=== PATIENT | female | born 1965 | race Two or more races ===

== ENCOUNTER 2021-03-20 17:49 | Emergency (ER) | payer SELFPAY ==
[~2021-03-20] VITALS: Ht 147.3 cm; Wt 63.5 kg
[2021-03-20 17:59] VITALS: BP 126/87
== END 2021-03-20 19:11 | disposition left against medical advice (07) ==
LOC: ER 18:06
DX: R11.2 Nausea with vomiting, unspecified (principal); Z53.21 Procedure and treatment not carried out due to patient leaving prior to being seen by health care provider

== ENCOUNTER 2024-06-19 18:11 | Inpatient (IN) | payer MEDICAID ==
[~2024-06-19] VITALS: Ht 147.3 cm; Wt 65.3 kg
[2024-06-19 18:58] LABS: Urine Bacteria None Seen /hpf (None Seen)
--- NOTE | 2024-06-19 19:01 | ED.PDOC ---
GI ASSESSMENT HPI Comments 58 y/o F, with no prior medical history presents to the ED for CC of abdominal pain. Patient states, that she has been experiencing epigastric abdominal pain that radiates to her back x3 weeks. Patient denies hematuria, dysuria, nausea, or vomiting. No other symptoms or modifying factors present at this time. 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 Family History Family History: Unknown Social History Smoker: Non-Smoker Alcohol: Denies ETOH Use Drugs: Denies Drug Use Lives In: Home Constitutional: denies: chills, diaphoresis, fatigue, fever, malaise, sweats, weakness, others EENTM: denies: blurred vision, double vision, ear bleeding, ear discharge, ear drainage, ear pain, ear ringing, eye pain, eye redness, hearing loss, mouth pain, mouth swelling, nasal discharge, nose bleeding, nose congestion, nose pain, photophobia, tearing, throat pain, throat swelling, voice changes, others Respiratory: denies: cough, hemoptysis, orthopnea, SOB at rest, shortness of breath, SOB with excertion, stridor, wheezing, others Cardiovascular: denies: chest pain, dizzy spells, diaphoresis, Dyspnea on exertion, edema, irregular heart beat, left arm pain, lightheadedness, palpitations, PND, syncope, others Gastrointestinal: reports: abdominal pain; denies: abdomen distended, blood streaked bowels, constipated, diarrhea, dysphagia, difficulty swallowing, hematemesis, melena, nausea, poor appetite, poor fluid intake, rectal bleeding, rectal pain, vomiting, others Genitourinary: denies: abnormal vagina bleeding, burning, dyspareunia, dysuria, flank pain, frequency, hematuria, incontinence, pain, , vagina discharge, urgency, others Neurological: denies: dizziness, fainting, headache, left sided numbness, left sided weakness, numbness, paresthesia, pre-existing deficit, right sided numbness, right sided weakness, seizure, speech problems, tingling, tremors, weakness, others Musculoskeletal: reports: back pain; denies: gout, joint pain, joint swelling, muscle pain, muscle stiffness, neck pain, others Integumetry: denies: bruises, change in color, change in hair/nails, dryness, laceration, lesions, lumps, rash, wounds, others Allergic/Immunocompromised: denies: Difficulty Healing, Frequent Infections, Hives, Itching, others Hematologic/Lymphatic: denies: anemia, blood clots, easy bleeding, easy bruising, swollen glands, others Endocrine: denies: excessive hunger, excessive sweating, excessive thirst, excessive urination, flushing, intolerance to cold, intolerance to heat, unexplained weight gain, unexplained weight loss, others Psychiatric: denies: anxiety, bipolar disorder, depression, hopeless, panic disorder, schizophrenia, sleepless, suicidal, others All Other Systems: Reviewed and Negative Physical Exam General Appearance: Moderate Distress HEENT: Normal ENT Inspection, Pharynx Normal, TMs Normal Neck: Full Range of Motion, Non-Tender, Normal, Normal Inspection Respiratory: Chest Non-Tender, Lungs Clear, No Accessory Muscle Use, No Respiratory Distress, Normal Breath Sounds Cardiovascular: No Edema, No JVD, No Murmur, No Gallop, Normal Peripheral Pulses, Regular Rate/Rhythm Breast Exam: Deferred Gastrointestinal: Epigastric, No Organomegaly, No Pulsatile Mass, Normal Bowel Sounds, Soft, Tenderness Genitalia: Deferred Pelvic: Deferred Rectal: Deferred Extremities: No calf tenderness, Normal capillary refill, No pedal edema Musculoskeletal : Apperance: Normal Neurologic: Alert, relays draftsperson II-XII nml as Tested, No Motor Deficits, Normal Affect, Normal Mood, No Sensory Deficits Cerebellar Function: Normal Reflexes: Normal Skin: Dry, Normal Color, Warm Lymphatic: No Adenopathy Was a procedure done? Was a procedure done?: No GI differential Dx Differential Diagnosis: Gastritis/PUD, Gastroenteritis, Electrolyte Imbalance, Food Poisoning, Bacterial, Viral X-Ray, Labs, Meds, VS Vital Signs Date Time Temp Pulse Resp B/P (MAP) Pulse Ox O2 Delivery O2 Flow Rate FiO2 06/19/24 18:21 99.7 100 17 161/88 (112) 96 99.7 Lab Test 06/19/24 19:23 06/19/24 18:11 Range/Units White Blood Count 9.9 4.4-10.8 10^3/uL Red Blood Count 5.09 4.0-5.20 10^6/uL Hemoglobin 15.3 12.2-16.2 g/dL Hematocrit 43.1 36.0-46.0 % Mean Corpuscular Volume 84.8 80.0-100.0 fL Mean Corpuscular Hemoglobin 30.1 28.0-32.0 pg Mean Corpuscular Hemoglobin Concent 35.5 32.0-36.0 g/dL Red Cell Distribution Width 12.7 11.8-14.3 % Platelet Count 327 140-450 10^3/uL Mean Platelet Volume 8.8 6.9-10.8 fL Neutrophils (%) (Auto) 53.7 37.0-80.0 % Lymphocytes (%) (Auto) 28.6 10.0-50.0 % Monocytes (%) (Auto) 7.5 0.0-12.0 % Eosinophils (%) (Auto) 9.3 H 0.0-7.0 % Basophils (%) (Auto) 0.9 0.0-2.0 % Neutrophils # (Auto) 5.3 1.6-8.6 10 ^3/uL Lymphocytes # (Auto) 2.8 0.4-5.4 10 ^3/uL Monocytes # (Auto) 0.7 0-1.3 10 ^3/uL Eosinophils # (Auto) 0.9 H 0-0.8 10 ^3/uL Basophils # (Auto) 0.1 0-0.2 10 ^3/uL Nucleated Red Blood Cells 0.0 % Sodium Level Pending Potassium Level Pending Chloride Level Pending Carbon Dioxide Level Pending Anion Gap Pending Blood Urea Nitrogen Pending Creatinine Pending Glomerular Filtration Rate Calc Pending BUN/Creatinine Ratio Pending Serum Glucose Pending Calcium Level Pending Total Bilirubin Pending Aspartate Amino Transferase (AST) Pending Alanine Aminotransferase (ALT) Pending Alkaline Phosphatase Pending Total Protein Pending Albumin Pending Lipase Pending Urine Color Yellow Yellow Urine Clarity Clear Clear Urine pH 5.5 5.0-9.0 Urine Specific [place] 1.030 1.001-1.035 Urine Protein Trace H Negative Urine Ketones Negative Negative Urine Blood Negative Negative /uL Urine Nitrite Negative Negative Urine Bilirubin Negative Negative Urine Urobilinogen 2 H Negative mg/dL Urine Leukocyte Esterase 2+ Negative /uL Urine RBC <1 0 - 4 /hpf Urine Microscopic WBC 9 H 0-5 /HPF Urine Squamous Epithelial Cells Few <5 /hpf Urine Calcium Oxalate Crystals Mod None Seen Urine Bacteria None seen None Seen /hpf Urine Mucus Few None Seen Urine Glucose Normal Normal mg/dL CAT scan of the abdomen and pelvis shows: IMPRESSION: 1. Severe circumferential mural thickening of gastric wall suggestion of contained perforation of the proximal anterior wall with extensive adjacent omental inflammation. No pneumoperitoneum. Differential diagnosis includes infiltrative lesion such as GIST, or lymphoma or inflammation due to gastritis with superimposed peptic ulcer disease. Recommend surgical and GI consultation. 2. Mild small bowel ileus. 3. Trace fluid in the cul-de-sac. 4. Moderate-sized mildly complicated Fat containing spigelian hernia in the right lower abdominal wall. The CBC is within normal limits The urine test is positive for a slight UTI The chemistry panel will be followed by the hospitalist We are contacting the general surgeon to evaluate this patient The patient was started on Zosyn and Flagyl IV piggyback The patient was being admitted at this time. Images Reviewed?: Images reviewed and evaluated by me Time of 1ST Reevaluation: 19:25 Reevaluation 1ST: Unchanged Patient Education/Counseling: Diagnosis, Treatment, Prognosis Family Education/Counseling: No Family Present Departure 1 Departure Time of Disposition: 20:28 Impression: Primary Impression: Intractable abdominal pain Additional Impression: Perforated gastric ulcer Qualified Codes: K25.1 - Acute gastric ulcer with perforation Disposition: ADMITTED INPATIENT Admit to: Tele Condition: Fair Critical Care Note Critical Care Time?: No Stability Stability form required: Yes Unstable for transfer: ED Physician Assesment (Clinical assesment) Heart Score Heart Score: Heart Score Response (Comments) Value History N/A 0 EKG N/A 0 Age N/A 0 Risk Factors N/A 0 Troponin N/A 0 Total 0 I personally scribed for IMAN PASTRANA MD ([email or web address]) on 06/19/24 at 19:01. Electronically submitted by Jayde Ramírez ([email or web address]). IMAN PASTRANA MD Jun 19, 2024 19:01
[2024-06-19 19:29] LABS: Urine Blood Negative /uL (Negative); Urine Clarity Clear (Clear); Urine Color Yellow (Yellow); Urine Mucus FEW (None Seen); Urine Protein, UAD TRACE (Negative); Urine Squamous Epithelial Cell FEW /hpf (<5); Urine Urobilinogen 2 mg/dL (Negative); Urine WBC 9 /HPF (0-5); Urine pH 5.5 (5.0-9.0)
[2024-06-19 20:07] LABS: Basophils # (auto) 0.1 10 ^3/uL (0-0.2); Basophils % (auto) 0.9 % (0.0-2.0); Eosinophils # (auto) 0.9 10 ^3/uL (0-0.8); Eosinophils % (auto) 9.3 % (0.0-7.0); Hematocrit 43.1 % (36.0-46.0); Hemoglobin 15.3 g/dL (12.2-16.2); Lymphocytes # (auto) 2.8 10 ^3/uL (0.4-5.4); Lymphocytes % (auto) 28.6 % (10.0-50.0); Mean Corpuscular Hemoglobin 30.1 pg (28.0-32.0); Mean Corpuscular Hgb Conc. 35.5 g/dL (32.0-36.0); Mean Corpuscular Volume 84.8 fL (80.0-100.0); Monocytes # (auto) 0.7 10 ^3/uL (0-1.3); Monocytes % (auto) 7.5 % (0.0-12.0); Neutrophils # (auto) 5.3 10 ^3/uL (1.6-8.6); Neutrophils % (auto) 53.7 % (37.0-80.0); Platelet Count (auto) 327 10^3/uL (140-450); Red Blood Cells 5.09 10^6/uL (4.0-5.20); Red Cell Distribution Width 12.7 % (11.8-14.3); White Blood Cell 9.9 10^3/uL (4.4-10.8)
--- NOTE | 2024-06-19 20:22 | DVH ---
Procedure: CT CT AB PEL WO CON-NO ORAL OR IV 06/19/2024 07:07 PM Indication: pain Comparison Study: None Technique: Axial images were obtained and reformatted in coronal and sagittal planes. All CT scans at this medical facility are performed using dose modulation techniques as appropriate to a performed e xam including the following: Automated exposure control was utilized; adjustment of the MA and/or KV according to patient size; and use of iterative reconstruction technique. CT Dose: CTDI volume is 16. 36 mGy. Dose-length product is 802.62 mGy*cm FINDINGS: Lower Chest: Unremarkable. Hepatobiliary: Gallbladder is surgically absent. Spleen: Unremarkable. Pancreas: Unremarkable. Adrenal Glands: Unremarkable. tract: The kidneys are normal in size bilaterally without hydronephrosis or nephrolithiasis. The u rinary bladder is unremarkable. GI tract: Severe irregular gastric wall thickening along the fundus and greater curvature measuring 2 .5 cm in maximum thickness . There is focal outpouching of luminal gas through lesser curvature wall in proximal gastric body wall. Extensive omental fat stranding noted. There is no pneumoperitoneum. A mildly distended small bowel loop is seen in the lower abdomen without transition point likely ile us. The large bowel is unremarkable. The appendix is normal. Lymphatics: No mesenteric, retroperitoneal or periportal lymphadenopathy. Vasculature: The abdominal aorta is normal in caliber. Pelvic Organs: The uterus is surgically absent. No adnexal lesion is identified. Small amount of free fluid is seen in cul-de-sac. Bones/soft tissues: Moderate-sized fat containing mildly complicated right lower abdominal wall spige soledad hernia measuring 1.6 cm in transverse at the neck. The sac of the hernia measures 4 cm in lengt h 3.4 cm in transverse. Other: None. IMPRESSION: 1. Severe circumferential mural thickening of gastric wall suggestion of contained perforation of the proximal anterior wall with extensive adjacent omental inflammation. No pneumoperitoneum. Different ial diagnosis includes infiltrative lesion such as GIST, or lymphoma or inflammation due to gastritis with superimposed peptic ulcer disease. Recommend surgical and GI consultation. 2. Mild small bowel ileus. 3. Trace fluid in the cul-de-sac. 4. Moderate-sized mildly complicated Fat containing spigelian hernia in the right lower abdominal wal l.
[2024-06-19 20:26] LABS: Alanine Aminotransferase 27 U/L (7-40); Albumin 4.1 g/dL (3.2-4.8); Anion Gap 12 (5-15); Aspartate Aminotransferase 30 U/L (13-40); BUN/Creatinine Ratio 18.4 (10.0-20.0); Bilirubin, Total 0.9 mg/dL (0.2-1.0); Blood Urea Nitrogen 9 mg/dL (9-23); Calcium 9.8 mg/dL (8.7-10.4); Carbon Dioxide 23 mmol/L (20-31); Chloride 106 mmol/L (98-107); Lipase 39 U/L (12-53); Potassium 4.2 mmol/L (3.5-5.1); Sodium 141 mmol/L (136-145); Total Protein 6.9 g/dL (5.7-8.2)
[2024-06-19 20:33] LABS: Alkaline Phosphatase 148 U/L (46-116); Glucose 119 mg/dL (74-106)
[2024-06-19 21:08] LABS: INR 1.14 (0.9-1.15); Partial Thromboplastin Time 25.4 SEC (24.5-34.5); Prothrombin Time 11.9 sec (9.3-11.8)
[2024-06-19] MEDS: metroNIDAZOLE 500MG/100ML 100 ML IV ONE (21:18)
[2024-06-19] MEDS: PIPERACILLIN-TAZOB 3.375GM 100 ML IV ONE (21:18)
[2024-06-19] MEDS: SODIUM CHLORIDE 0.9% 1,000 ML IV ONE ×2 (21:19→22:30)
[2024-06-19 22:07] VITALS: PULSE 93; RESP 17; O2SAT 93
--- NOTE | 2024-06-19 22:09 | DVHINCON2 ---
Consultation - Surgical Date Seen: Jun 19, 2024 Referring Physician Referring Physician ER Reason for Consultation abd pain History of Present Illness History of Present Illness 58 y/o F, with no prior medical history presents to the ED for CC of abdominal pain. Patient states, that she has been experiencing epigastric abdominal pain that radiates to her back x3 weeks. Patient denies hematuria, dysuria, nausea, or vomiting. No other symptoms or modifying factors present at this time. Last BM was today. Ate lunch without difficulty other than some left upper quadrant discomfort. No fevers Family and Social History Family and Social History Smoker nondrinker Allergies and medications Allergies: Coded Allergies: NO KNOWN ALLERGIES (Unverified , 03/20/21) Review of systems Review of Systems: HEENT:Normal, CVS:Normal, RESPIRATORY:Normal, GI:Normal, :Normal, MSK:Normal, NEURO:Normal Examination Vital signs Vital Signs Date Time Temp Pulse Resp B/P (MAP) Pulse Ox O2 Delivery O2 Flow Rate FiO2 06/19/24 21:28 98.8 89 19 164/98 (120) 97 98.8 Medications Current Medications Medications (Trade) Dose Ordered Sig/Blanka Route PRN Reason Start Time Stop Time Status Last Admin Sodium Chloride 1,000 ml @ 75 mls/hr [id number] IV 06/19/24 21:30 Pantoprazole Sodium (Protonix) 40 mg BID IV 06/20/24 10:00 Laboratory Labs Test 06/19/24 19:23 06/19/24 18:11 Range/Units White Blood Count 9.9 4.4-10.8 10^3/uL Red Blood Count 5.09 4.0-5.20 10^6/uL Hemoglobin 15.3 12.2-16.2 g/dL Hematocrit 43.1 36.0-46.0 % Mean Corpuscular Volume 84.8 80.0-100.0 fL Mean Corpuscular Hemoglobin 30.1 28.0-32.0 pg Mean Corpuscular Hemoglobin Concent 35.5 32.0-36.0 g/dL Red Cell Distribution Width 12.7 11.8-14.3 % Platelet Count 327 140-450 10^3/uL Mean Platelet Volume 8.8 6.9-10.8 fL Neutrophils (%) (Auto) 53.7 37.0-80.0 % Lymphocytes (%) (Auto) 28.6 10.0-50.0 % Monocytes (%) (Auto) 7.5 0.0-12.0 % Eosinophils (%) (Auto) 9.3 H 0.0-7.0 % Basophils (%) (Auto) 0.9 0.0-2.0 % Neutrophils # (Auto) 5.3 1.6-8.6 10 ^3/uL Lymphocytes # (Auto) 2.8 0.4-5.4 10 ^3/uL Monocytes # (Auto) 0.7 0-1.3 10 ^3/uL Eosinophils # (Auto) 0.9 H 0-0.8 10 ^3/uL Basophils # (Auto) 0.1 0-0.2 10 ^3/uL Nucleated Red Blood Cells 0.0 % Prothrombin Time 11.9 H 9.3-11.8 sec Prothrombin Time INR 1.14 0.9-1.15 Activated Partial Thromboplast Time 25.4 24.5-34.5 SEC Sodium Level 141 136-145 mmol/L Potassium Level 4.2 3.5-5.1 mmol/L Chloride Level 106 98-107 mmol/L Carbon Dioxide Level 23 20-31 mmol/L Anion Gap 12 5-15 Blood Urea Nitrogen 9 9-23 mg/dL Creatinine 0.49 L 0.550-1.02 mg/dL Glomerular Filtration Rate Calc 109 >90 mL/min BUN/Creatinine Ratio 18.4 10.0-20.0 Serum Glucose 119 H 74-106 mg/dL Calcium Level 9.8 8.7-10.4 mg/dL Total Bilirubin 0.9 0.2-1.0 mg/dL Aspartate Amino Transferase (AST) 30 13-40 U/L Alanine Aminotransferase (ALT) 27 7-40 U/L Alkaline Phosphatase 148 H 46-116 U/L Total Protein 6.9 5.7-8.2 g/dL Albumin 4.1 3.2-4.8 g/dL Lipase 39 12-53 U/L Urine Color Yellow Yellow Urine Clarity Clear Clear Urine pH 5.5 5.0-9.0 Urine Specific [place] 1.030 1.001-1.035 Urine Protein Trace H Negative Urine Ketones Negative Negative Urine Blood Negative Negative /uL Urine Nitrite Negative Negative Urine Bilirubin Negative Negative Urine Urobilinogen 2 H Negative mg/dL Urine Leukocyte Esterase 2+ Negative /uL Urine RBC <1 0 - 4 /hpf Urine Microscopic WBC 9 H 0-5 /HPF Urine Squamous Epithelial Cells Few <5 /hpf Urine Calcium Oxalate Crystals Mod None Seen Urine Bacteria None seen None Seen /hpf Urine Mucus Few None Seen Urine Glucose Normal Normal mg/dL Procedure: CT CT AB PEL WO CON-NO ORAL OR IV 06/19/2024 07:07 PM Indication: pain Comparison Study: None Technique: Axial images were obtained and reformatted in coronal and sagittal planes. All CT scans at this medical facility are performed using dose modulation techniques as appropriate to a performed exam including the following: Automated exposure control was utilized; adjustment of the MA and/or KV according to patient size; and use of iterative reconstruction technique. CT Dose: CTDI volume is 16.36 mGy. Dose-length product is 802.62 mGy*cm FINDINGS: Lower Chest: Unremarkable. Hepatobiliary: Gallbladder is surgically absent. Spleen: Unremarkable. Pancreas: Unremarkable. Adrenal Glands: Unremarkable. tract: The kidneys are normal in size bilaterally without hydronephrosis or nephrolithiasis. The urinary bladder is unremarkable. GI tract: Severe irregular gastric wall thickening along the fundus and greater curvature measuring 2.5 cm in maximum thickness . There is focal outpouching of luminal gas through lesser curvature wall in proximal gastric body wall. Extensive omental fat stranding noted. There is no pneumoperitoneum. A mildly distended small bowel loop is seen in the lower abdomen without transition point likely ileus. The large bowel is unremarkable. The appendix is normal. Lymphatics: No mesenteric, retroperitoneal or periportal lymphadenopathy. Vasculature: The abdominal aorta is normal in caliber. Pelvic Organs: The uterus is surgically absent. No adnexal lesion is identified. Small amount of free fluid is seen in cul-de-sac. Bones/soft tissues: Moderate-sized fat containing mildly complicated right lower abdominal wall spigelian hernia measuring 1.6 cm in transverse at the neck. The sac of the hernia measures 4 cm in length 3.4 cm in transverse. Other: None. IMPRESSION: 1. Severe circumferential mural thickening of gastric wall suggestion of contained perforation of the proximal anterior wall with extensive adjacent omental inflammation. No pneumoperitoneum. Differential diagnosis includes infiltrative lesion such as GIST, or lymphoma or inflammation due to gastritis with superimposed peptic ulcer disease. Recommend surgical and GI consultation. 2. Mild small bowel ileus. 3. Trace fluid in the cul-de-sac. 4. Moderate-sized mildly complicated Fat containing spigelian hernia in the right lower abdominal wall. Examination: GENERAL:Normal, HEENT:Normal, NECK:Normal, LUNGS:Normal, CVS:Normal, ABDOMEN:Abnormal (Left upper quadrant and epigastrium tenderness to deep palpation. No rebound no guarding.), MSK:Normal, SKIN:Normal, NEURO:Normal, :Normal Problem List/Assessment/Plan Problems: (1) Perforated gastric ulcer (2) Intractable abdominal pain Assessment and Plan 58-year-old female with a three week history of left upper quadrant pain. Patient CAT scan findings suggestive of gastric ulcer contained perforation NPO IV fluids IV antibiotics IV PPI GI consultation We will continue to follow Plan discussed with Plan discussed with: Patient Visit Coding Surgery Date of Service if different f: Jun 19, 2024 Billing Provider: NGHIA NEWBERRY Jr., MD Surgery Visit Codes: 38005 - INP CONSULT <80 MIN NGHIA NEWBERRY Jr., MD Jun 19, 2024 22:09
[2024-06-19] MEDS: SODIUM CHLORIDE 0.9% 1,000 ML IV SCH (22:30)
[2024-06-19] MEDS: PANTOPRAZOLE 40 MG/10 ML VIAL INJ IV ONE (23:18)
--- NOTE | 2024-06-19 23:58 | DVHHPRES ---
History of Present Illness Resident Creating Document: HAI VANEGAS RESIDENT History of Present Illness Ms Marcus is a 58-year-old female with hx of h pylori - took tx last month, new onset dm not on meds and htn, who presented to the ER with a chief complaint of abdominal pain past day. She reports abdominal pain located in lower abdomen, crampy in nature, 6/10 in intensity, nonradiating, intermittent, not associated with nausea or vomiting. She denies constipation or diarrhea this time. Last bowel movement was today. Patient did report that she had lunch around noon 06/19. Patient denies fever/chills/shortness of breath/chest pain. Past medical/surgical history: hx of h pylori - took tx last month, new onset dm not on meds and htn Social history: Denies smoking/drinking/illicit drug use Patient seen and examined in the ER. Has lower abdominal and left-sided abdominal tenderness. Surgeon was consulted, recommended NPO, IV fluids and IV antibiotics. Family History: None Smoke: No ALCOHOL: none Drugs: None Lives: with Family Review of Systems Gastrointestinal: Abdominal Pain Allergies: Coded Allergies: NO KNOWN ALLERGIES (Unverified , 03/20/21) Medications Current Medications Medications Dose Ordered Sig/Blanka Route Start Time Stop Time Status Last Admin Dose Admin Sodium Chloride 1,000 ml @ 75 mls/hr [id number] IV 06/19/24 21:30 06/19/24 22:30 75 MLS/HR Pantoprazole Sodium 40 mg BID IV 06/20/24 10:00 Exam Vital Signs Vital Signs Date Time Temp Pulse Resp B/P (MAP) Pulse Ox O2 Delivery O2 Flow Rate FiO2 06/19/24 21:28 98.8 89 19 164/98 (120) 97 98.8 Exam Patient lying in bed, in no acute distress General: Well-built, afebrile, palor, mucosae are moist Cardiovascular: Regular S1 and S2. No murmurs, gallops or rubs. No JVD elevation. No pedal edema Respiratory: Normal B/L air entry on room air. Clear lung sounds on auscultation Abdomen: Soft, mid abdominal and left abdominal tenderness nondistended, hyperactive bowel sounds, no rebound tenderness, no organomegaly, no masses Genitourinary: Deferred MSK/skin: Mobilizes 4 limbs. Skin is dry and warm Neurological: No motor, no sensitive deficits, normal speech. Pupils are isocoric and reactive. Psych/Mental Status: A/Ox3 Labs/Xrays Labs Test 06/19/24 19:23 06/19/24 18:11 Range/Units White Blood Count 9.9 4.4-10.8 10^3/uL Red Blood Count 5.09 4.0-5.20 10^6/uL Hemoglobin 15.3 12.2-16.2 g/dL Hematocrit 43.1 36.0-46.0 % Mean Corpuscular Volume 84.8 80.0-100.0 fL Mean Corpuscular Hemoglobin 30.1 28.0-32.0 pg Mean Corpuscular Hemoglobin Concent 35.5 32.0-36.0 g/dL Red Cell Distribution Width 12.7 11.8-14.3 % Platelet Count 327 140-450 10^3/uL Mean Platelet Volume 8.8 6.9-10.8 fL Neutrophils (%) (Auto) 53.7 37.0-80.0 % Lymphocytes (%) (Auto) 28.6 10.0-50.0 % Monocytes (%) (Auto) 7.5 0.0-12.0 % Eosinophils (%) (Auto) 9.3 H 0.0-7.0 % Basophils (%) (Auto) 0.9 0.0-2.0 % Neutrophils # (Auto) 5.3 1.6-8.6 10 ^3/uL Lymphocytes # (Auto) 2.8 0.4-5.4 10 ^3/uL Monocytes # (Auto) 0.7 0-1.3 10 ^3/uL Eosinophils # (Auto) 0.9 H 0-0.8 10 ^3/uL Basophils # (Auto) 0.1 0-0.2 10 ^3/uL Nucleated Red Blood Cells 0.0 % Prothrombin Time 11.9 H 9.3-11.8 sec Prothrombin Time INR 1.14 0.9-1.15 Activated Partial Thromboplast Time 25.4 24.5-34.5 SEC Sodium Level 141 136-145 mmol/L Potassium Level 4.2 3.5-5.1 mmol/L Chloride Level 106 98-107 mmol/L Carbon Dioxide Level 23 20-31 mmol/L Anion Gap 12 5-15 Blood Urea Nitrogen 9 9-23 mg/dL Creatinine 0.49 L 0.550-1.02 mg/dL Glomerular Filtration Rate Calc 109 >90 mL/min BUN/Creatinine Ratio 18.4 10.0-20.0 Serum Glucose 119 H 74-106 mg/dL Calcium Level 9.8 8.7-10.4 mg/dL Total Bilirubin 0.9 0.2-1.0 mg/dL Aspartate Amino Transferase (AST) 30 13-40 U/L Alanine Aminotransferase (ALT) 27 7-40 U/L Alkaline Phosphatase 148 H 46-116 U/L Total Protein 6.9 5.7-8.2 g/dL Albumin 4.1 3.2-4.8 g/dL Lipase 39 12-53 U/L Urine Color Yellow Yellow Urine Clarity Clear Clear Urine pH 5.5 5.0-9.0 Urine Specific [place] 1.030 1.001-1.035 Urine Protein Trace H Negative Urine Ketones Negative Negative Urine Blood Negative Negative /uL Urine Nitrite Negative Negative Urine Bilirubin Negative Negative Urine Urobilinogen 2 H Negative mg/dL Urine Leukocyte Esterase 2+ Negative /uL Urine RBC <1 0 - 4 /hpf Urine Microscopic WBC 9 H 0-5 /HPF Urine Squamous Epithelial Cells Few <5 /hpf Urine Calcium Oxalate Crystals Mod None Seen Urine Bacteria None seen None Seen /hpf Urine Mucus Few None Seen Urine Glucose Normal Normal mg/dL Assessment/Plan Assessment/Plan Abdominal pain secondary to contained perforation of gastric wall probable GIST, or lymphoma or inflammation due to gastritis Hx of H pylori Ruled out pneumoperitoneum Mild small bowel ileus Moderate abdominal hernia Uncontrolled hypertension DM - A1C 6.7 HTN vit d defeciency hypokalemia CT abdomen shows Severe circumferential mural thickening of gastric wall suggestion of contained perforation of the proximal anterior wall with extensive adjacent omental inflammation. No pneumoperitoneum. Differential diagnosis includes infiltrative lesion such as GIST, or lymphoma or inflammation due to gastritis with superimposed peptic ulcer disease. Recommend surgical and GI consultation. Mild small bowel ileus. Trace fluid in the cul-de-sac. Moderate- sized mildly complicated Fat containing spigelian hernia in the right lower abdominal wall. Plan: Surgeon Dr. Ribeiro consulted-recommended NPO, IV fluids, IV antibiotic, IV ppi and GI consultation. No NG needed at this time given the risk of perforation. GI consultation pending IV ceftriaxone daily and metronidazole Q 8 IV Protonix mild iss Diet NPO Plan discussed with patient in which all questions have been answered Goals of care discussed for more than 20 minutes, full code status Case discussed with Dr. Almeida Plan discussed with: Patient Date of Service: Jun 19, 2024 Billing Provider: LUCA ALMEIDA MD Common Visit Codes: 38193-GMRGEQA INP/OBS CARE (HIGH) HAI VANEGAS RESIDENT Jun 19, 2024 23:58 LUCA ALMEIDA MD Jun 20, 2024 21:03
[2024-06-20] VITALS (8 sets, daily range): BP systolic 72–144; BP diastolic 68–71; PULSE 77–98; RESP 16–19; TEMP 98.1–102.3; O2SAT 95–100
[2024-06-20] MEDS ORDERED: HYDROcodone-ACET 5/325MG TAB PO PRN (01:15)
[2024-06-20] MEDS ORDERED: ACETAMINOPHEN 500 MG TAB or CAP PO PRN (01:15)
[2024-06-20] MEDS: ACETAMINOPHEN 325 MG TAB PO ONE (02:31)
[2024-06-20] MEDS: metroNIDAZOLE 500MG/100ML 100 ML IV SCH (05:40)
[2024-06-20 06:11] LABS: Basophils # (auto) 0.1 10 ^3/uL (0-0.2); Basophils % (auto) 0.9 % (0.0-2.0); Eosinophils # (auto) 0.7 10 ^3/uL (0-0.8); Eosinophils % (auto) 9.8 % (0.0-7.0); Hematocrit 40.3 % (36.0-46.0); Hemoglobin 14.1 g/dL (12.2-16.2); Lymphocytes # (auto) 1.4 10 ^3/uL (0.4-5.4); Lymphocytes % (auto) 20.3 % (10.0-50.0); Mean Corpuscular Hemoglobin 29.8 pg (28.0-32.0); Mean Corpuscular Volume 85.2 fL (80.0-100.0); Monocytes # (auto) 0.7 10 ^3/uL (0-1.3); Monocytes % (auto) 10.7 % (0.0-12.0); Neutrophils # (auto) 4.1 10 ^3/uL (1.6-8.6); Neutrophils % (auto) 58.3 % (37.0-80.0); Nucleated Red Blood Cells % 0.1 %; Platelet Count (auto) 273 10^3/uL (140-450); Red Blood Cells 4.73 10^6/uL (4.0-5.20); Red Cell Distribution Width 12.7 % (11.8-14.3)
[2024-06-20 06:35] LABS: Alanine Aminotransferase 21 U/L (7-40); Anion Gap 10 (5-15); BUN/Creatinine Ratio 10.6 (10.0-20.0); Calcium 8.8 mg/dL (8.7-10.4); Carbon Dioxide 23 mmol/L (20-31); Magnesium 1.8 mg/dL (1.6-2.6); Sodium 142 mmol/L (136-145)
[2024-06-20 06:36] LABS: Total Protein 6.1 g/dL (5.7-8.2)
[2024-06-20 06:37] LABS: Albumin 3.6 g/dL (3.2-4.8); Aspartate Aminotransferase 30 U/L (13-40)
[2024-06-20 06:43] LABS: Alkaline Phosphatase 124 U/L (46-116); Bilirubin, Total 1.3 mg/dL (0.2-1.0); Blood Urea Nitrogen 5 mg/dL (9-23); Chloride 109 mmol/L (98-107); Glucose 134 mg/dL (74-106); Potassium 3.3 mmol/L (3.5-5.1)
[2024-06-20] MEDS ORDERED: POTASSIUM CHL 20MEQ/100ML 100 ML IV SCH (07:30)
[2024-06-20] MEDS ORDERED: DEXTROSE (50%) 50ML SYRG IV PRN (07:30)
[2024-06-20] MEDS: ERGOCALCIFEROL 50,000 UNIT(1.25MG) CAP PO SCH (07:30)
[2024-06-20] MEDS: GASTROGRAFIN 120 ML SOL ONE (07:34)
[2024-06-20] MEDS: EZ-GAS II GRANULES (RADIOLOGY USE) PO ONE (07:34)
[2024-06-20 07:54] LABS: Amphetamine Screen, Urine Neg (NEGATIVE); Barbiturate Scree,Urine Neg (NEGATIVE); Benzodiazephine Screen, Urine Neg (NEGATIVE); Cannabinoid Screen, Urine Neg (NEGATIVE); Cocaine Screen, Urine Neg (NEGATIVE); Opiate Scree,Urine Neg (NEGATIVE); Phencyclidine Screen, Urine Neg (NEGATIVE)
[2024-06-20] MEDS: MAGNESIUM SULFATE 1GM/100ML 100 ML IV ONE (09:33)
[2024-06-20] MEDS: PANTOPRAZOLE 40 MG/10 ML VIAL INJ IV SCH (09:34)
[2024-06-20] MEDS: CYANOCOBALAMIN (B-12) 1000 MCG/1 ML VIAL IM ONE (09:34)
[2024-06-20] MEDS: cefTRIAXone 1GM/50ML D5W 50 ML IV SCH (09:34)
[2024-06-20] MEDS: POTASSIUM CHL 20MEQ/50ML 50 ML IV SCH (09:45)
[2024-06-20] MEDS: InsuLIN REG 1unit/0.01ml Soln (100units/ml) SC SCH (11:30)
[2024-06-20] MEDS: ACCU-CHEK COMFORT CURVE STRIP VI SCH (11:30)
[2024-06-20 11:51] LABS: Hepatitis B Surface Antigen Negative (Negative); Hepatitis C Antibody Negative (Negative)
--- NOTE | 2024-06-20 12:47 | DVHINCON2 ---
GI Consult Consult Note GI consult note Date of Consultation: 06/20/2024 Chief Complaint: Partial gastric perforation rule out malignancy Referring Physician:Dr Guardado H&P: 58-year-old Pakistani-speaking patient presented to ER with abdominal pain, see any translating Patient reports to epigastric pain, which is constant and severe for the past two months Also complaining of left upper quadrant pain for the past three weeks, which gets worse with movement No nausea or vomiting. No melena or red blood in stool Patient admits to 20 lb weight loss in the last two months due to change in diet No EGD in past. Status post colonoscopy 10 years ago Recent diagnosis of H pylori after blood test, about four weeks ago, patient completed taking antibiotics Denies smoking or drinking alcohol Past Medical History: H. pylori Past Surgical History: Denies Social History: NO smoking, drinking ETOH and use of illegal drugs. Family History: Noncontributory Review of Systems: Constitutional: no fever, chill, weight loss HEENT: no eye pain, no hearing loss, no oral lesion, no scleral icterus Heart: no chest pain, no chest pressure Lung: no cough, no dyspnea with exertion Abdomen: see HPI Physical exam: General: NAD, AAOX3 Chest: lung doss clear to auscultation Heart: RRR, no murmur Abdomen: Dexa-[id number] epigastric and left upper quadrant tenderness to palpation, +BS Labs: Labs Test 06/20/24 11:56 06/20/24 11:26 06/20/24 05:23 06/19/24 19:23 Range/Units Lactic Acid Level 1.2 0.4-2.0 mmol/L POC Glucose 179 H 70-106 mg/dl White Blood Count 7.0 # 4.4-10.8 10^3/uL Red Blood Count 4.73 4.0-5.20 10^6/uL Hemoglobin 14.1 12.2-16.2 g/dL Hematocrit 40.3 36.0-46.0 % Mean Corpuscular Volume 85.2 80.0-100.0 fL Mean Corpuscular Hemoglobin 29.8 28.0-32.0 pg Mean Corpuscular Hemoglobin Concent 35.0 32.0-36.0 g/dL Red Cell Distribution Width 12.7 11.8-14.3 % Platelet Count 273 140-450 10^3/uL Mean Platelet Volume 8.7 6.9-10.8 fL Neutrophils (%) (Auto) 58.3 37.0-80.0 % Lymphocytes (%) (Auto) 20.3 10.0-50.0 % Monocytes (%) (Auto) 10.7 0.0-12.0 % Eosinophils (%) (Auto) 9.8 H 0.0-7.0 % Basophils (%) (Auto) 0.9 0.0-2.0 % Neutrophils # (Auto) 4.1 1.6-8.6 10 ^3/uL Lymphocytes # (Auto) 1.4 0.4-5.4 10 ^3/uL Monocytes # (Auto) 0.7 0-1.3 10 ^3/uL Eosinophils # (Auto) 0.7 0-0.8 10 ^3/uL Basophils # (Auto) 0.1 0-0.2 10 ^3/uL Nucleated Red Blood Cells 0.1 % Sodium Level 142 136-145 mmol/L Potassium Level 3.3 L 3.5-5.1 mmol/L Chloride Level 109 H 98-107 mmol/L Carbon Dioxide Level 23 20-31 mmol/L Anion Gap 10 5-15 Blood Urea Nitrogen 5 L 9-23 mg/dL Creatinine 0.47 L 0.550-1.02 mg/dL Glomerular Filtration Rate Calc 110 >90 mL/min BUN/Creatinine Ratio 10.6 10.0-20.0 Serum Glucose 134 H 74-106 mg/dL Hemoglobin A1c 6.7 H <5.7 % A1C Calcium Level 8.8 8.7-10.4 mg/dL Magnesium Level 1.8 1.6-2.6 mg/dL Total Bilirubin 1.3 H 0.2-1.0 mg/dL Aspartate Amino Transferase (AST) 30 13-40 U/L Alanine Aminotransferase (ALT) 21 7-40 U/L Alkaline Phosphatase 124 H 46-116 U/L Total Protein 6.1 5.7-8.2 g/dL Albumin 3.6 3.2-4.8 g/dL Vitamin B12 Level 357 211-911 pg/mL Vitamin D 25-Hydroxy 30.4 30.0-100 ng/mL Thyroid Stimulating Hormone (TSH) 1.45 0.55-4.78 uIU/mL Hepatitis B Surface Antigen Negative Negative Hepatitis C Antibody Negative Negative Prothrombin Time 11.9 H 9.3-11.8 sec Prothrombin Time INR 1.14 0.9-1.15 Activated Partial Thromboplast Time 25.4 24.5-34.5 SEC Lipase 39 12-53 U/L Test 06/19/24 18:11 Range/Units Urine Color Yellow Yellow Urine Clarity Clear Clear Urine pH 5.5 5.0-9.0 Urine Specific [place] 1.030 1.001-1.035 Urine Protein Trace H Negative Urine Ketones Negative Negative Urine Blood Negative Negative /uL Urine Nitrite Negative Negative Urine Bilirubin Negative Negative Urine Urobilinogen 2 H Negative mg/dL Urine Leukocyte Esterase 2+ Negative /uL Urine RBC <1 0 - 4 /hpf Urine Microscopic WBC 9 H 0-5 /HPF Urine Squamous Epithelial Cells Few <5 /hpf Urine Calcium Oxalate Crystals Mod None Seen Urine Bacteria None seen None Seen /hpf Urine Mucus Few None Seen Urine Glucose Normal Normal mg/dL Urine Opiates Screen Neg NEGATIVE Urine Fentanyl Screen Neg NEGATIVE Urine Barbiturates Screen Neg NEGATIVE Urine Phencyclidine Screen Neg NEGATIVE Urine Amphetamines Screen Neg NEGATIVE Urine Benzodiazepines Screen Neg NEGATIVE Urine Cocaine Screen Neg NEGATIVE Urine Cannabinoids Screen Neg NEGATIVE Imaging: CT abdomen pelvis IMPRESSION: 1. Severe circumferential mural thickening of gastric wall suggestion of contained perforation of the proximal anterior wall with extensive adjacent omental inflammation. No pneumoperitoneum. Differential diagnosis includes infiltrative lesion such as GIST, or lymphoma or inflammation due to gastritis with superimposed peptic ulcer disease. Recommend surgical and GI consultation. 2. Mild small bowel ileus. 3. Trace fluid in the cul-de-sac. 4. Moderate-sized mildly complicated Fat containing spigelian hernia in the right lower abdominal wall. 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 pylori Abdominal hernia Plan: Discussed with Dr. Reyes Surgical consult Upper GI with Gastrografin Monitor labs At this time EGDs not recommended due to concerns about perforation, EGD to be planned when patient is stable We will continue to follow the patient Plan discussed with patient and RN Thank you for this consult Date of Service: Jun 20, 2024 Billing Provider: YO ROBERTS Common Visit Codes: CONSULT ONLY Consultation Codes: [id number] CONSULT <60MIN YO ROBERTS Jun 20, 2024 12:47
[2024-06-20] MEDS ORDERED: ACETAMINOPHEN IV 1000 MG/100ML (10MG/ML) IV PRN ×2 (17:00→20:30)
--- NOTE | 2024-06-20 19:22 | DVH ---
XY UGI WITH GASTROGRAFIN, HISTORY: rule out perforated gastric ulcer COMPARISON: None PROCEDURE: A [employer] radiograph was obtained prior to the procedure. Gastrograffin administered orally , and radiographs were obtained under intermittent fluoroscopic observation. Total fluoroscopic time was 1 minute. DAP 631 FINDINGS: The [employer] image demonstrates no evidence for obstruction or free intraperitoneal gas. The esophagus was normal in caliber with no stricture, filling defect or wall irregularity demonstrat ed. Normal esophageal peristalsis was observed. There was prompt passage of contrast through a normal appearing gastroesophageal junction. Contour ir regularity along the greater curvature of the stomach. The stomach otherwise distended normally. The duodenal bulb demonstrated no stricture or ulceration. Contrast flowed into more distal loops of small bowel, with no abnormality identified. Mild esophageal reflux was demonstrated during this exam despite provocative maneuvers. IMPRESSION: Contour irregularity along the greater curvature of the stomach could represent mucosal inflammation seen with a gastric ulcer. However no contrast extravasation is visualized to suggest for perforation .
--- NOTE | 2024-06-20 19:35 | DVHPNRES ---
Progress Note Date Seen: Jun 20, 2024 Resident Creating Document: SAMEER WRIGHT CUCA Has the PT tested + for MRSA If YES, has PT been informed?: No Medical Necessity Reason Pt with a Central, PICC or Fol: No Subjective Review of Systems Ms Marcus is a 58-year-old female with hx of h pylori - took tx last month, new onset dm not on meds and htn, who presented to the ER with a chief complaint of abdominal pain past day. She reports abdominal pain located in lower abdomen, crampy in nature, 6/10 in intensity, nonradiating, intermittent, not associated with nausea or vomiting. She denies constipation or diarrhea this time. Last bowel movement was today. Patient did report that she had lunch around noon 06/19. Patient denies fever/chills/shortness of breath/chest pain. Past medical/surgical history: hx of h pylori - took tx last month, new onset dm not on meds and htn Social history: Denies smoking/drinking/illicit drug use Patient seen and examined at bedside. Patient is still complaining of abdominal pain. Patient reports: No new complaints Changes from previous H/P or p: No Changes Objective vital signs Vital Sign Date Time Temp Pulse Resp B/P (MAP) Pulse Ox O2 Delivery O2 Flow Rate FiO2 06/20/24 16:50 102.3 98 17 116/68 (84) 98 102.3 06/20/24 08:00 Room Air* 0 21 Total Intake and Output 06/19/24 06/19/24 06/20/24 15:00 23:00 07:00 Intake Total 1200 ml 1175 ml Balance 1200 ml 1175 ml medications Current Medications Medications Dose Ordered Sig/Blanka Route Start Time Stop Time Status Last Admin Dose Admin Sodium Chloride 1,000 ml @ 75 mls/hr [id number] IV 06/19/24 21:30 06/20/24 13:07 75 MLS/HR Pantoprazole Sodium 40 mg BID IV 06/20/24 10:00 06/20/24 09:34 40 MG Ceftriaxone Sodium 50 ml @ 100 mls/hr DAILY@09 IV 06/20/24 09:00 06/20/24 09:34 100 MLS/HR Metronidazole 100 ml @ 100 mls/hr Q8HR IV 06/20/24 06:00 06/20/24 15:17 100 MLS/HR Acetaminophen 500 mg Q4HPRN PRN PO 06/20/24 01:15 Acetaminophen/ Hydrocodone Bitart 1 tab Q4HPRN PRN PO 06/20/24 01:15 Hold Ergocalciferol 50,000 unit Q7D PO 06/20/24 07:30 Potassium Chloride 100 ml @ 50 mls/hr Q2H IV 06/20/24 07:30 06/20/24 11:29 Cancel Diagnostic Test (Pha) 1 strip ACHS 06/20/24 11:30 06/20/24 17:00 1 STRIP Insulin Human Regular ACHS SC 06/20/24 11:30 Dextrose 50 ml UD PRN IV 06/20/24 07:30 Acetaminophen 1,000 mg BID PRN IV 06/20/24 17:00 Examination General Appearance: Alert, Oriented X3, Cooperative, No acute distress HEENT: Atraumatic, PERRLA, EOMI, Mucous membrane moist/pink Respiratory: Clear to auscultation, Normal air movement Cardiovascular: Regular rate, Normal S1, Normal S2, No murmurs, no chest wall tenderness Abdominal: Abdominal tenderness Extremities: No clubbing, No cyanosis, No edema, Normal pulses, No tenderness/swelling Skin: No rashes, No breakdown, No significant lesion Neuro: Normal gait, Normal speech, Strength at 5/5 X4 ext, Normal tone, Sensation intact, Cranial nerves 3-12 NL, Reflexes 2+ Psych/Mental Status: Mental status NL, Mood NL laboratory and microbiology Laboratory Tests 06/20/24 05:23 Test 06/20/24 05:23 Range/Units Serum Glucose 134 H 74-106 mg/dL Labs and/or images reviewed: Labs reviewed by me, Image(s) reviewed by me Problem List/Assessment/Plan Problem List/Assessment/Plan Contained gastric perforation Small-bowel ileus Abdominal CT scan shows, Severe circumferential mural thickening of gastric wall suggestion of contained perforation of the proximal anterior wall with extensive adjacent omental inflammation. No pneumoperitoneum. Mild small bowel ileus Moderate abdominal hernia History of H pylori Consulted surgery, recommended medical management at the moment Consulted GI, due to risk of operation do not recommend EGD, planned for GI Gastrografin Protonix BUN IV fluid Empiric antibiotic, Rocephin and Flagyl Hypertension Diabetes type 2, newly diagnosed Hypokalemia, repleted Vitamin-D deficiency, repleted DIET: NPO DVT PROPHYLAXIS: SCDs GI PROPHYLAXIS:: Protonix CODE STATUS: Goal of care discussed for more than 18 minutes, full code DISPOSITION: Med/surge Patient's status and plan discussed with the patient. Case discussed with Dr. Schluer. Plan discussed with: Patient, Other (RN) My Orders My Orders Orders - SAMEER WRIGHT Procedure Category Date Status Time Stool Occult Blood LAB 06/20/24 Logged 11:20 Acetaminophen Iv PHA 06/20/24 In Process (Ofirmev) 17:00 Potassium Chloride PHA 06/20/24 In Process (Potassium Chloride). 17:00 SAMEER WRIGHT RESDIENT Jun 20, 2024 19:35
[2024-06-20] MEDS ORDERED: MORPHINE SULFATE INJ 2 MG/ml SYRG IV PRN (19:45)
[2024-06-20] MEDS: ACETAMINOPHEN IV 1000 MG/100ML (10MG/ML) IV ONE (20:37)
[2024-06-20] MEDS: POTASSIUM CHLORIDE 40 MEQ, LIDOCAINE 1% (LOCAL ANESTH.) 4 ML in SODIUM CHL 0.9% 250 ML IV ONE (22:23)
[2024-06-21] VITALS (8 sets, daily range): BP systolic 117–152; BP diastolic 67–76; PULSE 85–98; RESP 16–18; TEMP 97.9–99.7; O2SAT 93–96
[2024-06-21 05:47] LABS: Basophils # (auto) 0.1 10 ^3/uL (0-0.2); Basophils % (auto) 0.7 % (0.0-2.0); Eosinophils # (auto) 0.2 10 ^3/uL (0-0.8); Eosinophils % (auto) 2.7 % (0.0-7.0); Hematocrit 40.6 % (36.0-46.0); Hemoglobin 14.3 g/dL (12.2-16.2); Lymphocytes # (auto) 1.8 10 ^3/uL (0.4-5.4); Lymphocytes % (auto) 21.3 % (10.0-50.0); Mean Corpuscular Hemoglobin 30.1 pg (28.0-32.0); Mean Corpuscular Hgb Conc. 35.2 g/dL (32.0-36.0); Mean Corpuscular Volume 85.4 fL (80.0-100.0); Monocytes # (auto) 1.2 10 ^3/uL (0-1.3); Monocytes % (auto) 13.5 % (0.0-12.0); Neutrophils # (auto) 5.3 10 ^3/uL (1.6-8.6); Neutrophils % (auto) 61.8 % (37.0-80.0); Nucleated Red Blood Cells % 0.2 %; Platelet Count (auto) 263 10^3/uL (140-450); Red Blood Cells 4.75 10^6/uL (4.0-5.20); White Blood Cell 8.6 10^3/uL (4.4-10.8)
[2024-06-21 06:04] LABS: Alanine Aminotransferase 20 U/L (7-40); Anion Gap 10 (5-15); BUN/Creatinine Ratio 13.5 (10.0-20.0); Calcium 8.8 mg/dL (8.7-10.4); Carbon Dioxide 22 mmol/L (20-31); Potassium 3.8 mmol/L (3.5-5.1); Sodium 143 mmol/L (136-145); Total Protein 6.5 g/dL (5.7-8.2)
[2024-06-21 06:05] LABS: Albumin 3.7 g/dL (3.2-4.8); Aspartate Aminotransferase 27 U/L (13-40)
[2024-06-21 06:06] LABS: Bilirubin, Total 0.9 mg/dL (0.2-1.0)
[2024-06-21 06:26] LABS: Alkaline Phosphatase 121 U/L (46-116); Blood Urea Nitrogen 7 mg/dL (9-23); Chloride 111 mmol/L (98-107); Glucose 128 mg/dL (74-106)
--- NOTE | 2024-06-21 11:11 | DVHPN2 ---
Progress Note Date Seen: Jun 21, 2024 Resident Creating Document: GOOD [place]ST[place] RESIDENT Has the PT tested + for MRSA If YES, has PT been informed?: No Medical Necessity Reason Pt with a Central, PICC or Fol: No Subjective Review of Systems Patient seen and examined at the bedside. Patient currently reporting mild abdominal pain. but no other active complaints. Pending surgical consult. Changes from previous H/P or p: No Changes Objective vital signs Vital Sign Date Time Temp Pulse Resp B/P (MAP) Pulse Ox O2 Delivery O2 Flow Rate FiO2 06/21/24 08:30 98.8 87 18 141/71 (94) 94 98.8 06/20/24 20:00 Room Air* 0 21 Total Intake and Output 06/20/24 06/20/24 06/21/24 14:59 22:59 06:59 Intake Total 150 ml 0 ml Balance 150 ml 0 ml medications Current Medications Medications Dose Ordered Sig/Blnaka Route Start Time Stop Time Status Last Admin Dose Admin Sodium Chloride 1,000 ml @ 75 mls/hr [id number] IV 06/19/24 21:30 06/21/24 00:59 75 MLS/HR Pantoprazole Sodium 40 mg BID IV 06/20/24 10:00 06/21/24 09:48 40 MG Ceftriaxone Sodium 50 ml @ 100 mls/hr DAILY@09 IV 06/20/24 09:00 06/21/24 09:48 100 MLS/HR Metronidazole 100 ml @ 100 mls/hr Q8HR IV 06/20/24 06:00 06/21/24 06:00 100 MLS/HR Acetaminophen 500 mg Q4HPRN PRN PO 06/20/24 01:15 Hold Acetaminophen/ Hydrocodone Bitart 1 tab Q4HPRN PRN PO 06/20/24 01:15 Ergocalciferol 50,000 unit Q7D PO 06/20/24 07:30 Potassium Chloride 100 ml @ 50 mls/hr Q2H IV 06/20/24 07:30 06/20/24 11:29 Cancel Diagnostic Test (Pha) 1 strip ACHS 06/20/24 11:30 06/21/24 06:24 1 STRIP Insulin Human Regular ACHS SC 06/20/24 11:30 Dextrose 50 ml UD PRN IV 06/20/24 07:30 Morphine Sulfate 1 mg Q4HP PRN IV 06/20/24 19:45 Acetaminophen 1,000 mg BID PRN IV 06/20/24 20:30 Sucralfate 1 gm QID@0600,1130,1700,2200 PO 06/21/24 11:30 Examination Pt is lying on bed General Appearance: Alert, Oriented X3, Cooperative, mild distress HEENT: Atraumatic, Mucous membranes moist/pink Respiratory: Clear to auscultation, Normal air movement, No added sounds Cardiovascular: Regular rate, Normal S1, Normal S2, No murmurs Abdominal: [id number] epigastric and left upper quadrant tenderness to palpation, +BS Extremities: No edema, Normal pulses, No tenderness/swelling Skin: No Significant rash, except past surgical scars Neuro: Normal speech, sensorimotor deficits none Psych/Mental Status: Mental status NL, Mood NL Nurse was there as sharperone during examination laboratory and microbiology Laboratory Tests 06/21/24 05:14 Test 06/21/24 05:14 Range/Units Serum Glucose 128 H 74-106 mg/dL Labs and/or images reviewed: Labs reviewed by me, Image(s) reviewed by me Problem List/Assessment/Plan Problem List/Assessment/Plan 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 pylori Abdominal hernia Plan: - May need EGD properly next week while patient is here due to concerns about perforation, EGD to be planned when patient is stable - Surgical consult - Monitor labs - Protonix, Carafate - NPO for now - maybe ice chips if surgical asst okay with it - CT abdominal pelvis showed Severe circumferential mural thickening of gastric wall suggestion of contained perforation of the proximal anterior wall with extensive adjacent omental inflammation. No pneumoperitoneum. Differential diagnosis includes infiltrative lesion such as GIST, or lymphoma or inflammation due to gastritis with superimposed peptic ulcer disease. Recommend surgical and GI consultation. and Mild small bowel ileus. - upper GI series with Gastrografin showed Contour irregularity along the greater curvature of the stomach could represent mucosal inflammation seen with a gastric ulcer. However no contrast extravasation is visualized to suggest for perforation. Thank you so much for the opportunity to consult on your patient. GI team will follow the patient Case an action plan discussed with Dr. Imelda Reyes. Complex care planning needed total 49 minutes of detailed discussion. Plan discussed with: Patient Dietary Evaluation Review Comments: 1. Currently NPO x 2 days, +acute malnutrition; pt not to go >5 days NPO/CL diet only 2. Recommend timely diet advancement as medically able to Regular diet for least-restrictive diet possible; may consider CHO modifier if tighter BG control is needed 3. Would consider supplemental PN w/ Clinimix 4.25/10 @ 41 ml/hr in the interim until diet progresses (provides 510 kcal, 42 gm pro) 4. Continue to closely monitor/treat GI sx Expected Outcomes/Goals: Diet progression, improved nutritional status, weight maintenance. Food and Nutrition Intake (Sev: <50% est energy req 5days Interpretation of weight loss: >5% in 1 month Protein Calorie Malnutrition: Severe Is there a minimum of two crit: Yes GOOD CASTANO RESIDENT Jun 21, 2024 11:11
[2024-06-21] MEDS: SUCRALFATE 1 GM/10 ML ORAL SUSP PO SCH (11:23)
[2024-06-21] MEDS: D5W/SOD CHL 0.45% 1,000 ML IV SCH (11:25)
[2024-06-21 13:15] LABS: Basophils # (auto) 0 10 ^3/uL (0-0.2); Basophils % (auto) 0.6 % (0.0-2.0); Eosinophils # (auto) 0.3 10 ^3/uL (0-0.8); Eosinophils % (auto) 2.9 % (0.0-7.0); Hematocrit 43.5 % (36.0-46.0); Hemoglobin 15.1 g/dL (12.2-16.2); Lymphocytes # (auto) 2.4 10 ^3/uL (0.4-5.4); Lymphocytes % (auto) 27.8 % (10.0-50.0); Mean Corpuscular Hemoglobin 29.9 pg (28.0-32.0); Mean Corpuscular Hgb Conc. 34.7 g/dL (32.0-36.0); Monocytes # (auto) 0.9 10 ^3/uL (0-1.3); Monocytes % (auto) 9.9 % (0.0-12.0); Neutrophils # (auto) 5.2 10 ^3/uL (1.6-8.6); Neutrophils % (auto) 58.8 % (37.0-80.0); Nucleated Red Blood Cells % 0.1 %; Platelet Count (auto) 268 10^3/uL (140-450); Red Blood Cells 5.06 10^6/uL (4.0-5.20); Red Cell Distribution Width 12.8 % (11.8-14.3); White Blood Cell 8.8 10^3/uL (4.4-10.8)
--- NOTE | 2024-06-21 14:45 | DVHPN2 ---
Progress Note Date Seen: Jun 21, 2024 Has the PT tested + for MRSA If YES, has PT been informed?: No Medical Necessity Reason Pt with a Central, PICC or Fol: No Objective vital signs Vital Sign Date Time Temp Pulse Resp B/P (MAP) Pulse Ox O2 Delivery O2 Flow Rate FiO2 06/21/24 08:30 98.8 87 18 141/71 (94) 94 98.8 06/21/24 08:00 Room Air* 0 21 Total Intake and Output 06/20/24 06/20/24 06/21/24 15:00 23:00 07:00 Intake Total 150 ml 0 ml Balance 150 ml 0 ml medications Current Medications Medications Dose Ordered Sig/Blanka Route Start Time Stop Time Status Last Admin Dose Admin Pantoprazole Sodium 40 mg BID IV 06/20/24 10:00 06/21/24 09:48 40 MG Ceftriaxone Sodium 50 ml @ 100 mls/hr DAILY@09 IV 06/20/24 09:00 06/21/24 09:48 100 MLS/HR Metronidazole 100 ml @ 100 mls/hr Q8HR IV 06/20/24 06:00 06/21/24 14:28 100 MLS/HR Acetaminophen 500 mg Q4HPRN PRN PO 06/20/24 01:15 Hold Acetaminophen/ Hydrocodone Bitart 1 tab Q4HPRN PRN PO 06/20/24 01:15 Ergocalciferol 50,000 unit Q7D PO 06/20/24 07:30 Potassium Chloride 100 ml @ 50 mls/hr Q2H IV 06/20/24 07:30 06/20/24 11:29 Cancel Diagnostic Test (Pha) 1 strip ACHS 06/20/24 11:30 06/21/24 11:23 1 STRIP Insulin Human Regular ACHS SC 06/20/24 11:30 Dextrose 50 ml UD PRN IV 06/20/24 07:30 Morphine Sulfate 1 mg Q4HP PRN IV 06/20/24 19:45 Acetaminophen 1,000 mg BID PRN IV 06/20/24 20:30 Sucralfate 1 gm QID@0600,1130,1700,2200 PO 06/21/24 11:30 06/21/24 11:23 1 GM Dextrose/Sodium Chloride 1,000 ml @ 75 mls/hr [id number] IV 06/21/24 11:15 06/21/24 11:25 75 MLS/HR laboratory and microbiology Laboratory Tests 06/21/24 12:59 06/21/24 05:14 Test 06/21/24 05:14 Range/Units Serum Glucose 128 H 74-106 mg/dL Problem List/Assessment/Plan Problem List/Assessment/Plan 06/21/24 PATIENT HAS SEALED OFF PERFORATION OF GASTRIC ULCER, ABDOMEN NON TENDER, X RAY SHOWS NO EVIDENCE OF EXTRAVASATION. OK TO START PO LIQUIDS, WILL NEED UPPER GI ENDOSCOPY IN ABOUT 3 TO 4 WEEKS TO R/O NON PEPTIC PATHOLOGY Plan discussed with: Patient Dietary Evaluation Review Comments: 1. Currently NPO x 2 days, +acute malnutrition; pt not to go >5 days NPO/CL diet only 2. Recommend timely diet advancement as medically able to Regular diet for least-restrictive diet possible; may consider CHO modifier if tighter BG control is needed 3. Would consider supplemental PN w/ Clinimix 4.25/10 @ 41 ml/hr in the interim until diet progresses (provides 510 kcal, 42 gm pro) 4. Continue to closely monitor/treat GI sx Expected Outcomes/Goals: Diet progression, improved nutritional status, weight maintenance. Food and Nutrition Intake (Sev: <50% est energy req 5days Interpretation of weight loss: >5% in 1 month Protein Calorie Malnutrition: Severe Is there a minimum of two crit: Yes PHYLLIS CHOWDHURY MD Jun 21, 2024 14:45
--- NOTE | 2024-06-21 18:10 | DVHPNRES ---
Progress Note Date Seen: Jun 21, 2024 Resident Creating Document: SAMEER WRIGHT CUCA Has the PT tested + for MRSA If YES, has PT been informed?: No Medical Necessity Reason Pt with a Central, PICC or Fol: No Subjective Review of Systems Patient seen and examined at the bedside. Patient is still complaining of abdominal pain. Objective vital signs Vital Sign Date Time Temp Pulse Resp B/P (MAP) Pulse Ox O2 Delivery O2 Flow Rate FiO2 06/21/24 16:20 98.0 85 16 130/74 (92) 95 98.0 06/21/24 08:00 Room Air* 0 21 Total Intake and Output 06/20/24 06/20/24 06/21/24 15:00 23:00 07:00 Intake Total 150 ml 0 ml Balance 150 ml 0 ml medications Current Medications Medications Dose Ordered Sig/Blanka Route Start Time Stop Time Status Last Admin Dose Admin Pantoprazole Sodium 40 mg BID IV 06/20/24 10:00 06/21/24 09:48 40 MG Ceftriaxone Sodium 50 ml @ 100 mls/hr DAILY@09 IV 06/20/24 09:00 06/21/24 09:48 100 MLS/HR Metronidazole 100 ml @ 100 mls/hr Q8HR IV 06/20/24 06:00 06/21/24 14:28 100 MLS/HR Acetaminophen 500 mg Q4HPRN PRN PO 06/20/24 01:15 Hold Acetaminophen/ Hydrocodone Bitart 1 tab Q4HPRN PRN PO 06/20/24 01:15 Ergocalciferol 50,000 unit Q7D PO 06/20/24 07:30 Potassium Chloride 100 ml @ 50 mls/hr Q2H IV 06/20/24 07:30 06/20/24 11:29 Cancel Diagnostic Test (Pha) 1 strip ACHS 06/20/24 11:30 06/21/24 17:22 1 STRIP Insulin Human Regular ACHS SC 06/20/24 11:30 Dextrose 50 ml UD PRN IV 06/20/24 07:30 Morphine Sulfate 1 mg Q4HP PRN IV 06/20/24 19:45 Acetaminophen 1,000 mg BID PRN IV 06/20/24 20:30 Sucralfate 1 gm QID@0600,1130,1700,2200 PO 06/21/24 11:30 06/21/24 17:22 1 GM Dextrose/Sodium Chloride 1,000 ml @ 75 mls/hr [id number] IV 06/21/24 11:15 06/21/24 11:25 75 MLS/HR Examination General Appearance: Alert, Oriented X3, Cooperative, No acute distress HEENT: Atraumatic, PERRLA, EOMI, Mucous membrane moist/pink Respiratory: Clear to auscultation, Normal air movement Cardiovascular: Regular rate, Normal S1, Normal S2, No murmurs, no chest wall tenderness Abdominal: Abdominal tenderness Extremities: No clubbing, No cyanosis, No edema, Normal pulses, No tenderness/swelling Skin: No rashes, No breakdown, No significant lesion Neuro: Normal gait, Normal speech, Strength at 5/5 X4 ext, Normal tone, Sensation intact, Cranial nerves 3-12 NL, Reflexes 2+ Psych/Mental Status: Mental status NL, Mood NL laboratory and microbiology Laboratory Tests 06/21/24 12:59 06/21/24 05:14 Test 06/21/24 05:14 Range/Units Serum Glucose 128 H 74-106 mg/dL Labs and/or images reviewed: Labs reviewed by me, Image(s) reviewed by me Problem List/Assessment/Plan Problem List/Assessment/Plan Contained gastric perforation Small-bowel ileus Abdominal CT scan shows, Severe circumferential mural thickening of gastric wall suggestion of contained perforation of the proximal anterior wall with extensive adjacent omental inflammation. No pneumoperitoneum. Mild small bowel ileus Moderate abdominal hernia History of H pylori Consulted surgery, recommended medical management and GI follow up for possible EGD Consulted GI, planned for possible EGD tomorrow. Gastrografin studies shows, contour irregularity along the greater curvature of the stomach could represent mucosal inflammation seen with a gastric ulcer. However no contrast extravasation is visualized to suggest for perforation. Protonix BUN IV fluid Empiric antibiotic, Rocephin and Flagyl Hypertension Diabetes type 2, newly diagnosed Hypokalemia, repleted Vitamin-D deficiency, repleted DIET: NPO DVT PROPHYLAXIS: SCDs GI PROPHYLAXIS:: Protonix CODE STATUS: Goal of care discussed for more than 18 minutes, full code DISPOSITION: Med/surge Patient's status and plan discussed with the patient. Case discussed with Dr. Schuler. Plan discussed with: Patient, Other (RN) My Orders My Orders Orders - SAMEER WRIGHT RESDIAUGUST Procedure Category Date Status Time Morphine Sulfate PHA 06/20/24 In Process Injection 19:45 Acetaminophen Iv PHA 06/20/24 In Process (Ofirmev) 20:30 D5w/Sod Chl 0.45% PHA 06/21/24 In Process (D5w 1/2ns) 11:15 Clear Liq Diet DIET 06/21/24 Transmitted Lunch Discontinue Tele EVITA 06/21/24 In Process 12:04 Transfer Orders XFER 06/21/24 Transmitted 12:04 Dietary Evaluation Review Comments: 1. Currently NPO x 2 days, +acute malnutrition; pt not to go >5 days NPO/CL diet only 2. Recommend timely diet advancement as medically able to Regular diet for least-restrictive diet possible; may consider CHO modifier if tighter BG control is needed 3. Would consider supplemental PN w/ Clinimix 4.25/10 @ 41 ml/hr in the interim until diet progresses (provides 510 kcal, 42 gm pro) 4. Continue to closely monitor/treat GI sx Expected Outcomes/Goals: Diet progression, improved nutritional status, weight maintenance. Food and Nutrition Intake (Sev: <50% est energy req 5days Interpretation of weight loss: >5% in 1 month Protein Calorie Malnutrition: Severe Is there a minimum of two crit: Yes SAMEER WRIGHT Jun 21, 2024 18:10
[2024-06-22] VITALS (7 sets, daily range): BP systolic 121–137; BP diastolic 66–81; PULSE 81–97; RESP 15–19; TEMP 97.7–99; O2SAT 92–95
[2024-06-22 06:59] LABS: Alanine Aminotransferase 16 U/L (7-40); Alkaline Phosphatase 105 U/L (46-116); Anion Gap 11 (5-15); Basophils # (auto) 0.1 10 ^3/uL (0-0.2); Basophils % (auto) 0.8 % (0.0-2.0); Calcium 8.9 mg/dL (8.7-10.4); Carbon Dioxide 23 mmol/L (20-31); Chloride 106 mmol/L (98-107); Eosinophils # (auto) 0.5 10 ^3/uL (0-0.8); Eosinophils % (auto) 7.3 % (0.0-7.0); Hemoglobin 13.8 g/dL (12.2-16.2); Lymphocytes # (auto) 2.3 10 ^3/uL (0.4-5.4); Mean Corpuscular Hgb Conc. 35.2 g/dL (32.0-36.0); Mean Corpuscular Volume 85.2 fL (80.0-100.0); Monocytes # (auto) 0.7 10 ^3/uL (0-1.3); Monocytes % (auto) 9.9 % (0.0-12.0); Neutrophils # (auto) 3.6 10 ^3/uL (1.6-8.6); Platelet Count (auto) 270 10^3/uL (140-450); Red Blood Cells 4.58 10^6/uL (4.0-5.20); Red Cell Distribution Width 12.7 % (11.8-14.3); Sodium 140 mmol/L (136-145); Total Protein 6.2 g/dL (5.7-8.2); White Blood Cell 7.2 10^3/uL (4.4-10.8)
[2024-06-22 07:00] LABS: Albumin 3.6 g/dL (3.2-4.8); Aspartate Aminotransferase 23 U/L (13-40); Bilirubin, Total 0.7 mg/dL (0.2-1.0)
[2024-06-22 07:36] LABS: BUN/Creatinine Ratio 10.2 (10.0-20.0); Blood Urea Nitrogen < 5 mg/dL (9-23); Glucose 144 mg/dL (74-106); Potassium 3.3 mmol/L (3.5-5.1)
--- NOTE | 2024-06-22 13:07 | DVHPN2 ---
Progress Note Date Seen: Jun 22, 2024 Resident Creating Document: [place] RESIDENT Has the PT tested + for MRSA If YES, has PT been informed?: No Medical Necessity Reason Pt with a Central, PICC or Fol: No Subjective Review of Systems Patient seen and examined at the bedside. Patient currently reported improvement in her abdominal pain, slowly advancing diet as patient is tolerated. No other active complaints reported at this time. Objective vital signs Vital Sign Date Time Temp Pulse Resp B/P (MAP) Pulse Ox O2 Delivery O2 Flow Rate FiO2 06/22/24 11:56 98.1 81 15 126/72 (90) 95 98.1 06/22/24 08:00 Room Air* 0 21 Total Intake and Output 06/21/24 06/21/24 06/22/24 14:59 22:59 06:59 Intake Total 100 ml 1426 ml 1540 ml Balance 100 ml 1426 ml 1540 ml medications Current Medications Medications Dose Ordered Sig/Blanka Route Start Time Stop Time Status Last Admin Dose Admin Pantoprazole Sodium 40 mg BID IV 06/20/24 10:00 06/22/24 09:25 40 MG Ceftriaxone Sodium 50 ml @ 100 mls/hr DAILY@09 IV 06/20/24 09:00 06/22/24 09:25 100 MLS/HR Metronidazole 100 ml @ 100 mls/hr Q8HR IV 06/20/24 06:00 06/22/24 05:57 100 MLS/HR Acetaminophen 500 mg Q4HPRN PRN PO 06/20/24 01:15 Hold Acetaminophen/ Hydrocodone Bitart 1 tab Q4HPRN PRN PO 06/20/24 01:15 Ergocalciferol 50,000 unit Q7D PO 06/20/24 07:30 Potassium Chloride 100 ml @ 50 mls/hr Q2H IV 06/20/24 07:30 06/20/24 11:29 Cancel Morphine Sulfate 1 mg Q4HP PRN IV 06/20/24 19:45 Acetaminophen 1,000 mg BID PRN IV 06/20/24 20:30 Sucralfate 1 gm QID@0600,1130,1700,2200 PO 06/21/24 11:30 06/22/24 11:47 1 GM Examination Pt is lying on bed General Appearance: Alert, Oriented X3, Cooperative, mild distress HEENT: Atraumatic, Mucous membranes moist/pink Respiratory: Clear to auscultation, Normal air movement, No added sounds Cardiovascular: Regular rate, Normal S1, Normal S2, No murmurs Abdominal: Mild epigastric and left upper quadrant tenderness to palpation, +BS Extremities: No edema, Normal pulses, No tenderness/swelling Skin: No Significant rash, except past surgical scars Neuro: Normal speech, sensorimotor deficits none Psych/Mental Status: Mental status NL, Mood NL Nurse was there as sharperone during examination laboratory and microbiology Laboratory Tests 06/22/24 05:18 Test 06/22/24 05:18 Range/Units Serum Glucose 144 H 74-106 mg/dL Labs and/or images reviewed: Labs reviewed by me Problem List/Assessment/Plan Problem List/Assessment/Plan 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 pylori Abdominal hernia Plan: - EGD as outpatient in 3-4 weeks - Surgical consult evaluated the patient and advised to do EGD in 3-4 weeks. - Monitor labs - Protonix, Carafate - NPO for now - maybe ice chips if hand frame surgical elastic knitter okay with it - CT abdominal pelvis showed Severe circumferential mural thickening of gastric wall suggestion of contained perforation of the proximal anterior wall with extensive adjacent omental inflammation. No pneumoperitoneum. Differential diagnosis includes infiltrative lesion such as GIST, or lymphoma or inflammation due to gastritis with superimposed peptic ulcer disease. Recommend surgical and GI consultation. and Mild small bowel ileus. - upper GI series with Gastrografin showed Contour irregularity along the greater curvature of the stomach could represent mucosal inflammation seen with a gastric ulcer. However no contrast extravasation is visualized to suggest for perforation. Thank you so much for the opportunity to consult on your patient. GI team will follow the patient Case an action plan discussed with Dr. Imelda Reyes. Complex care planning needed total 49 minutes of detailed discussion. Plan discussed with: Patient Dietary Evaluation Review Comments: 1. Currently NPO x 2 days, +acute malnutrition; pt not to go >5 days NPO/CL diet only 2. Recommend timely diet advancement as medically able to Regular diet for least-restrictive diet possible; may consider CHO modifier if tighter BG control is needed 3. Would consider supplemental PN w/ Clinimix 4.25/10 @ 41 ml/hr in the interim until diet progresses (provides 510 kcal, 42 gm pro) 4. Continue to closely monitor/treat GI sx Expected Outcomes/Goals: Diet progression, improved nutritional status, weight maintenance. Food and Nutrition Intake (Sev: <50% est energy req 5days Interpretation of weight loss: >5% in 1 month Protein Calorie Malnutrition: Severe Is there a minimum of two crit: Yes [employer] [place] RESIDENT Jun 22, 2024 13:07
--- NOTE | 2024-06-22 19:36 | DVHPNRES ---
Progress Note Date Seen: Jun 22, 2024 Resident Creating Document: SAMEER WRIGHT RESDIENT Has the PT tested + for MRSA If YES, has PT been informed?: No Medical Necessity Reason Pt with a Central, PICC or Fol: No Subjective Review of Systems Patient seen and examined at the bedside. Patient is feeling better since admission but still complained of mild abdominal pain. Objective vital signs Vital Sign Date Time Temp Pulse Resp B/P (MAP) Pulse Ox O2 Delivery O2 Flow Rate FiO2 06/22/24 17:20 98.0 92 16 131/75 (93) 95 98.0 06/22/24 08:00 Room Air* 0 21 Total Intake and Output 06/21/24 06/21/24 06/22/24 15:00 23:00 07:00 Intake Total 100 ml 1426 ml 1540 ml Balance 100 ml 1426 ml 1540 ml medications Current Medications Medications Dose Ordered Sig/Blanka Route Start Time Stop Time Status Last Admin Dose Admin Pantoprazole Sodium 40 mg BID IV 06/20/24 10:00 06/22/24 09:25 40 MG Ceftriaxone Sodium 50 ml @ 100 mls/hr DAILY@09 IV 06/20/24 09:00 06/22/24 09:25 100 MLS/HR Metronidazole 100 ml @ 100 mls/hr Q8HR IV 06/20/24 06:00 06/22/24 13:32 100 MLS/HR Acetaminophen 500 mg Q4HPRN PRN PO 06/20/24 01:15 Hold Acetaminophen/ Hydrocodone Bitart 1 tab Q4HPRN PRN PO 06/20/24 01:15 Ergocalciferol 50,000 unit Q7D PO 06/20/24 07:30 Potassium Chloride 100 ml @ 50 mls/hr Q2H IV 06/20/24 07:30 06/20/24 11:29 Cancel Morphine Sulfate 1 mg Q4HP PRN IV 06/20/24 19:45 Acetaminophen 1,000 mg BID PRN IV 06/20/24 20:30 Sucralfate 1 gm QID@0600,1130,1700,2200 PO 06/21/24 11:30 06/22/24 16:45 1 GM Examination General Appearance: Alert, Oriented X3, Cooperative, No acute distress HEENT: Atraumatic, PERRLA, EOMI, Mucous membrane moist/pink Respiratory: Clear to auscultation, Normal air movement Cardiovascular: Regular rate, Normal S1, Normal S2, No murmurs, no chest wall tenderness Abdominal: Abdominal tenderness Extremities: No clubbing, No cyanosis, No edema, Normal pulses, No tenderness/swelling Skin: No rashes, No breakdown, No significant lesion Neuro: Normal gait, Normal speech, Strength at 5/5 X4 ext, Normal tone, Sensation intact, Cranial nerves 3-12 NL, Reflexes 2+ Psych/Mental Status: Mental status NL, Mood NL laboratory and microbiology Laboratory Tests 06/22/24 05:18 Test 06/22/24 05:18 Range/Units Serum Glucose 144 H 74-106 mg/dL Labs and/or images reviewed: Labs reviewed by me, Image(s) reviewed by me Problem List/Assessment/Plan Problem List/Assessment/Plan Contained gastric perforation Small-bowel ileus Abdominal CT scan shows, Severe circumferential mural thickening of gastric wall suggestion of contained perforation of the proximal anterior wall with extensive adjacent omental inflammation. No pneumoperitoneum. Mild small bowel ileus Moderate abdominal hernia History of H pylori Consulted surgery, recommended medical management and GI follow up for possible EGD Consulted GI, recommended outpatient follow up for possible EGD. Gastrografin studies shows, contour irregularity along the greater curvature of the stomach could represent mucosal inflammation seen with a gastric ulcer. However no contrast extravasation is visualized to suggest for perforation. Protonix BUN IV fluid Empiric antibiotic, Rocephin and Flagyl Hypertension Diabetes type 2, newly diagnosed Hypokalemia, repleted Vitamin-D deficiency, repleted DIET: Clear liquids diet DVT PROPHYLAXIS: SCDs GI PROPHYLAXIS:: Protonix CODE STATUS: Goal of care discussed for more than 18 minutes, full code DISPOSITION: Med/surge Patient's status and plan discussed with the patient. Case discussed with Dr. Schuler. Hospital course: Patient was admitted at the line of contained gastric perforation. Abdominal CT scan showed, severe circumferential mural thickening of gastric wall suggestion of contained perforation of the proximal anterior wall with extensive adjacent omental inflammation, no pneumoperitoneum, mild small bowel ileus and moderate abdominal hernia. Surgery consulted, recommended medical management and GI follow up. Gastrografin study was performed, showed contour irregularity along the greater curvature of the stomach could represent mucosal inflammation seen with a gastric ulcer. However no contrast extravasation is visualized to suggest for perforation. GI consulted, recommended medical management at [place] and outpatient follow up and possible EGD 3-4 weeks. Patient was given empiric antibiotic, Rocephin, Flagyl, Protonix b.i.d., Zofran, IV fluid and pain management. Patient was kept NPO for 1st 2 days, subsequent deviation was started on clear liquid diet, which patient tolerated. During hospital admission electrolyte imbalance including hypokalemia repleted, vitamin-D deficiency was supplemented. Outpatient plan: Protonix and Zofran Metformin for newly diagnosed diabetes Follow up with the PCP within 1 week of the discharge Follow up with the GI with a 3 to four-week on outpatient basis Diagnosis: Contained gastric perforation Sirs positive, with no end-organ damage Small-bowel ileus Moderate abdominal hernia History of H pylori Hypertension Diabetes type 2, newly diagnosed Hypokalemia, repleted Vitamin-D deficiency Plan discussed with: Patient, Other (RN) Dietary Evaluation Review Comments: 1. Currently NPO x 2 days, +acute malnutrition; pt not to go >5 days NPO/CL diet only 2. Recommend timely diet advancement as medically able to Regular diet for least-restrictive diet possible; may consider CHO modifier if tighter BG control is needed 3. Would consider supplemental PN w/ Clinimix 4.25/10 @ 41 ml/hr in the interim until diet progresses (provides 510 kcal, 42 gm pro) 4. Continue to closely monitor/treat GI sx Expected Outcomes/Goals: Diet progression, improved nutritional status, weight maintenance. Food and Nutrition Intake (Sev: <50% est energy req 5days Interpretation of weight loss: >5% in 1 month Protein Calorie Malnutrition: Severe Is there a minimum of two crit: Yes SAMEER WRIGHT RESSTEVEN Jun 22, 2024 19:36
[2024-06-23 01:00] VITALS: BP 123/66; PULSE 86; RESP 18; TEMP 97.8; O2SAT 95
[2024-06-23 05:00] VITALS: BP 120/70; PULSE 84; RESP 18; TEMP 97.9; O2SAT 97
[2024-06-23 07:14] LABS: Basophils # (auto) 0.1 10 ^3/uL (0-0.2); Basophils % (auto) 0.6 % (0.0-2.0); Eosinophils # (auto) 0.9 10 ^3/uL (0-0.8); Eosinophils % (auto) 9.9 % (0.0-7.0); Hematocrit 42.6 % (36.0-46.0); Hemoglobin 15.1 g/dL (12.2-16.2); Lymphocytes # (auto) 2.7 10 ^3/uL (0.4-5.4); Lymphocytes % (auto) 31.7 % (10.0-50.0); Mean Corpuscular Hemoglobin 29.8 pg (28.0-32.0); Mean Corpuscular Hgb Conc. 35.4 g/dL (32.0-36.0); Mean Corpuscular Volume 84.2 fL (80.0-100.0); Monocytes # (auto) 0.7 10 ^3/uL (0-1.3); Monocytes % (auto) 7.8 % (0.0-12.0); Neutrophils # (auto) 4.3 10 ^3/uL (1.6-8.6); Nucleated Red Blood Cells % 0.7 %; Platelet Count (auto) 310 10^3/uL (140-450); Red Blood Cells 5.05 10^6/uL (4.0-5.20); Red Cell Distribution Width 12.5 % (11.8-14.3); White Blood Cell 8.6 10^3/uL (4.4-10.8)
[2024-06-23 07:41] LABS: Alanine Aminotransferase 16 U/L (7-40); Albumin 3.7 g/dL (3.2-4.8); Alkaline Phosphatase 108 U/L (46-116); Aspartate Aminotransferase 26 U/L (13-40); Bilirubin, Total 0.9 mg/dL (0.2-1.0); Calcium 9.3 mg/dL (8.7-10.4); Potassium 3.7 mmol/L (3.5-5.1); Sodium 140 mmol/L (136-145); Total Protein 6.6 g/dL (5.7-8.2)
[2024-06-23 07:45] LABS: Blood Urea Nitrogen < 5 mg/dL (9-23); Chloride 108 mmol/L (98-107); Glucose 127 mg/dL (74-106)
[2024-06-23 07:49] LABS: Anion Gap 10 (5-15); Carbon Dioxide 22 mmol/L (20-31)
--- NOTE | 2024-06-23 08:43 | DVHPN2 ---
Progress Note Date Seen: Jun 23, 2024 Resident Creating Document: [place] RESIDENT Has the PT tested + for MRSA If YES, has PT been informed?: No Medical Necessity Reason Pt with a Central, PICC or Fol: No Subjective Review of Systems Patient seen and examined at the bedside. Patient reported improvement in her symptoms, reported no new complaints. We are advancing diet as she tolerated. Patient reports: No new complaints, Feels better Objective vital signs Vital Sign Date Time Temp Pulse Resp B/P (MAP) Pulse Ox O2 Delivery O2 Flow Rate FiO2 06/23/24 05:00 97.9 84 18 120/70 (87) 97 97.9 06/22/24 20:00 Room Air* 0 21 Total Intake and Output 06/22/24 06/22/24 06/23/24 15:00 23:00 07:00 Intake Total 50 ml 1300 ml 720 ml Output Total 200 ml Balance 50 ml 1100 ml 720 ml medications Current Medications Medications Dose Ordered Sig/Blanka Route Start Time Stop Time Status Last Admin Dose Admin Pantoprazole Sodium 40 mg BID IV 06/20/24 10:00 06/22/24 21:31 40 MG Ceftriaxone Sodium 50 ml @ 100 mls/hr DAILY@09 IV 06/20/24 09:00 06/22/24 09:25 100 MLS/HR Metronidazole 100 ml @ 100 mls/hr Q8HR IV 06/20/24 06:00 06/23/24 05:38 100 MLS/HR Acetaminophen 500 mg Q4HPRN PRN PO 06/20/24 01:15 Hold Acetaminophen/ Hydrocodone Bitart 1 tab Q4HPRN PRN PO 06/20/24 01:15 Ergocalciferol 50,000 unit Q7D PO 06/20/24 07:30 Potassium Chloride 100 ml @ 50 mls/hr Q2H IV 06/20/24 07:30 06/20/24 11:29 Cancel Morphine Sulfate 1 mg Q4HP PRN IV 06/20/24 19:45 Acetaminophen 1,000 mg BID PRN IV 06/20/24 20:30 Sucralfate 1 gm QID@0600,1130,1700,2200 PO 06/21/24 11:30 06/23/24 05:38 1 GM Examination Pt is lying on bed General Appearance: Alert, Oriented X3, Cooperative, Not in acute distress HEENT: Atraumatic, Mucous membranes moist/pink Respiratory: Clear to auscultation, Normal air movement, No added sounds Cardiovascular: Regular rate, Normal S1, Normal S2, No murmurs Abdominal: Active bowel sounds, Soft, no distention, mild tenderness Extremities: No edema, Normal pulses, No tenderness/swelling Skin: No Significant rash, except past surgical scars Neuro: Normal speech, sensorimotor deficits none Psych/Mental Status: Mental status NL, Mood NL Nurse was there as sharperone during examination laboratory and microbiology Laboratory Tests 06/23/24 06:37 Test 06/23/24 06:37 Range/Units Serum Glucose 127 H 74-106 mg/dL Labs and/or images reviewed: Labs reviewed by me, Image(s) reviewed by me Problem List/Assessment/Plan Problem List/Assessment/Plan 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 pylori Abdominal hernia Plan: - EGD as outpatient in 3-4 weeks - Surgical consult evaluated the patient and advised to do EGD in 3-4 weeks. - Monitor labs - Protonix, Carafate - NPO for now - maybe ice chips if surgical technologist okay with it - CT abdominal pelvis showed Severe circumferential mural thickening of gastric wall suggestion of contained perforation of the proximal anterior wall with extensive adjacent omental inflammation. No pneumoperitoneum. Differential diagnosis includes infiltrative lesion such as GIST, or lymphoma or inflammation due to gastritis with superimposed peptic ulcer disease. Recommend surgical and GI consultation. and Mild small bowel ileus. - upper GI series with Gastrografin showed Contour irregularity along the greater curvature of the stomach could represent mucosal inflammation seen with a gastric ulcer. However no contrast extravasation is visualized to suggest for perforation. -social service consult to help with insurance. Thank you so much for the opportunity to consult on your patient. GI team will follow the patient Case an action plan discussed with Dr. Imelda Reyes. Complex care planning needed total 49 minutes of detailed discussion. Plan discussed with: Patient Dietary Evaluation Review Comments: 1. Currently NPO x 2 days, +acute malnutrition; pt not to go >5 days NPO/CL diet only 2. Recommend timely diet advancement as medically able to Regular diet for least-restrictive diet possible; may consider CHO modifier if tighter BG control is needed 3. Would consider supplemental PN w/ Clinimix 4.25/10 @ 41 ml/hr in the interim until diet progresses (provides 510 kcal, 42 gm pro) 4. Continue to closely monitor/treat GI sx Expected Outcomes/Goals: Diet progression, improved nutritional status, weight maintenance. Food and Nutrition Intake (Sev: <50% est energy req 5days Interpretation of weight loss: >5% in 1 month Protein Calorie Malnutrition: Severe Is there a minimum of two crit: Yes GOOD [place]ST[place] RESIDENT Jun 23, 2024 08:43
[2024-06-23 08:45] VITALS: BP 116/67; PULSE 82; RESP 16; TEMP 98.2; O2SAT 92
[2024-06-23 11:28] VITALS: BP 122/70; PULSE 91; RESP 16; TEMP 98.1; O2SAT 95
[2024-06-23] MEDS ORDERED: PANT40TA2 PO (14:54)
[2024-06-23] MEDS ORDERED: METF-489 PO (14:54)
[2024-06-23] MEDS ORDERED: SUCR1SUS26 PO (14:54)
--- NOTE | 2024-06-23 15:04 | DVHDS2 ---
Discharge Summary Date of Admission Jun 19, 2024 at 23:57 Date of Discharge: Jun 23, 2024 Labs/Diagnostic Data: Laboratory Results Test 06/23/24 06:37 06/22/24 10:20 06/21/24 22:03 06/20/24 11:56 White Blood Count 8.6 10^3/uL (4.4-10.8) Red Blood Count 5.05 10^6/uL (4.0-5.20) Hemoglobin 15.1 g/dL (12.2-16.2) Hematocrit 42.6 % (36.0-46.0) Mean Corpuscular Volume 84.2 fL (80.0-100.0) Mean Corpuscular Hemoglobin 29.8 pg (28.0-32.0) Mean Corpuscular Hemoglobin Concent 35.4 g/dL (32.0-36.0) Red Cell Distribution Width 12.5 % (11.8-14.3) Platelet Count 310 10^3/uL (140-450) Mean Platelet Volume 8.8 fL (6.9-10.8) Neutrophils (%) (Auto) 50.0 % (37.0-80.0) Lymphocytes (%) (Auto) 31.7 % (10.0-50.0) Monocytes (%) (Auto) 7.8 % (0.0-12.0) Eosinophils (%) (Auto) 9.9 % (0.0-7.0) Basophils (%) (Auto) 0.6 % (0.0-2.0) Neutrophils # (Auto) 4.3 10 ^3/uL (1.6-8.6) Lymphocytes # (Auto) 2.7 10 ^3/uL (0.4-5.4) Monocytes # (Auto) 0.7 10 ^3/uL (0-1.3) Eosinophils # (Auto) 0.9 10 ^3/uL (0-0.8) Basophils # (Auto) 0.1 10 ^3/uL (0-0.2) Nucleated Red Blood Cells 0.7 % Sodium Level 140 mmol/L (136-145) Potassium Level 3.7 mmol/L (3.5-5.1) Chloride Level 108 mmol/L (98-107) Carbon Dioxide Level 22 mmol/L (20-31) Anion Gap 10 (5-15) Blood Urea Nitrogen < 5 mg/dL (9-23) Creatinine 0.50 mg/dL (0.550-1.02) Glomerular Filtration Rate Calc 108 mL/min (>90) BUN/Creatinine Ratio 10.0 (10.0-20.0) Serum Glucose 127 mg/dL (74-106) Calcium Level 9.3 mg/dL (8.7-10.4) Total Bilirubin 0.9 mg/dL (0.2-1.0) Aspartate Amino Transferase (AST) 26 U/L (13-40) Alanine Aminotransferase (ALT) 16 U/L (7-40) Alkaline Phosphatase 108 U/L (46-116) Total Protein 6.6 g/dL (5.7-8.2) Albumin 3.7 g/dL (3.2-4.8) Stool Occult Blood Negative (Negative) Stool Occult Blood Sample #3 (Negative) POC Glucose 152 mg/dl (70-106) Lactic Acid Level 1.2 mmol/L (0.4-2.0) Test 06/20/24 05:23 06/19/24 19:23 06/19/24 18:11 Hemoglobin A1c 6.7 % A1C (<5.7) Magnesium Level 1.8 mg/dL (1.6-2.6) Vitamin B12 Level 357 pg/mL (211-911) Vitamin D 25-Hydroxy 30.4 ng/mL (30.0-100) Thyroid Stimulating Hormone (TSH) 1.45 uIU/mL (0.55-4.78) Hepatitis B Surface Antigen Negative (Negative) Hepatitis C Antibody Negative (Negative) Prothrombin Time 11.9 sec (9.3-11.8) Prothrombin Time INR 1.14 (0.9-1.15) Activated Partial Thromboplast Time 25.4 SEC (24.5-34.5) Lipase 39 U/L (12-53) Urine Color Yellow (Yellow) Urine Clarity Clear (Clear) Urine pH 5.5 (5.0-9.0) Urine Specific [place] 1.030 (1.001-1.035) Urine Protein Trace (Negative) Urine Ketones Negative (Negative) Urine Blood Negative /uL (Negative) Urine Nitrite Negative (Negative) Urine Bilirubin Negative (Negative) Urine Urobilinogen 2 mg/dL (Negative) Urine Leukocyte Esterase 2+ /uL (Negative) Urine RBC <1 /hpf (0 - 4) Urine Microscopic WBC 9 /HPF (0-5) Urine Squamous Epithelial Cells Few /hpf (<5) Urine Calcium Oxalate Crystals Mod (None Seen) Urine Bacteria None seen /hpf (None Seen) Urine Mucus Few (None Seen) Urine Glucose Normal mg/dL (Normal) Urine Opiates Screen Neg (NEGATIVE) Urine Fentanyl Screen Neg (NEGATIVE) Urine Barbiturates Screen Neg (NEGATIVE) Urine Phencyclidine Screen Neg (NEGATIVE) Urine Amphetamines Screen Neg (NEGATIVE) Urine Benzodiazepines Screen Neg (NEGATIVE) Urine Cocaine Screen Neg (NEGATIVE) Urine Cannabinoids Screen Neg (NEGATIVE) Other Laboratory Tests 06/23/24 06:37 Brief Hx & Hospital Course: Hospital course: Patient was admitted at the line of contained gastric perforation. Abdominal CT scan showed, severe circumferential mural thickening of gastric wall suggestion of contained perforation of the proximal anterior wall with extensive adjacent omental inflammation, no pneumoperitoneum, mild small bowel ileus and moderate abdominal hernia. Surgery consulted, recommended medical management and GI follow up. Gastrografin study was performed, showed contour irregularity along the greater curvature of the stomach could represent mucosal inflammation seen with a gastric ulcer. However no contrast extravasation is visualized to suggest for perforation. GI consulted, recommended medical management at [place] and outpatient follow up and possible EGD 3-4 weeks. Patient was given empiric antibiotic, Rocephin, Flagyl, Protonix b.i.d., Zofran, IV fluid and pain management. Patient was kept NPO for 1st 2 days, subsequent deviation was started on clear liquid diet, which patient tolerated. During hospital admission electrolyte imbalance including hypokalemia repleted, vitamin-D deficiency was supplemented. Diagnosis: Contained gastric perforation abdominal pain due to above Small-bowel ileus, resolving Moderate abdominal hernia Sirs positive, with no end-organ damage Diabetes type 2, newly diagnosed Hypokalemia, resolved Vitamin-D deficiency History of H pylori Hypertension Discharge plan: -Protonix 40 mg once daily, 30 days, -Carafate suspension 1 g twice daily, 30 days -Full liquid diet, small portions and frequent intakes, until cleared by GI -Metformin XR (slow Release) 500 mg twice daily - for new diagnosed diabetes -Follow up with the PCP within 1 week of the discharge -Follow up with the GI with a 3 to four-week on outpatient basis Condition at Discharge: Fair Final Diagnosis/Problems List Contained gastric perforation abdominal pain due to above Small-bowel ileus, resolving Moderate abdominal hernia Sirs positive, with no end-organ damage Diabetes type 2, newly diagnosed Hypokalemia, resolved Vitamin-D deficiency History of H pylori Hypertension Discharge Disposition: Home Discharge Instruct/Medications Diet: See Comment Diet comment: See discharge instructions below Activity: No Restrictions, As Tolerated Follow Up/Referral: See discharge instructions below Medications: See discharge instructions below Discharge Statement: "Patient was advised to return to the ER or call 911 if any headaches, dizziness, shortness of breath, chest pain, abdominal pain, bleeding, fevers, or worsening of medical condition. Patient was counseled about treatment plan, medications, possible side effects, patientverbalized understanding. All questions were answered to the best of my ability. This discharge took greater then 30 minutes in planning, reviewing documentation, counseling the patient, and discussing with other team members." Date of Service: Jun 23, 2024 Billing Provider: VAIBHAV CARSON MD Common Visit Codes: 84638-NQK/OBS DISCH DAY >30min VAIBHAV CARSON MD Jun 23, 2024 15:04
[2024-06-23 16:39] VITALS: BP 123/71; PULSE 90; RESP 16; TEMP 98.5; O2SAT 93
[2024-06-23 17:12] VITALS: BP 123/71; PULSE 90; RESP 16; TEMP 98.5; O2SAT 93
== END 2024-06-23 19:20 | disposition home or self-care (01) | DRG 241 ==
LOC: ER 18:14 → OVERFLOW 23:57 → TELE-EAST 06-20 02:45 → EAST 06-22 03:40
PROVIDERS: ADMIT Student in an Organized Health Care Education/Training Program; ATTEND Emergency Medicine
DX: K25.5 Chronic or unspecified gastric ulcer with perforation (principal); R65.10 Systemic inflammatory response syndrome (SIRS) of non-infectious origin without acute organ dysfunction; K56.7 Ileus, unspecified; K29.70 Gastritis, unspecified, without bleeding; K46.9 Unspecified abdominal hernia without obstruction or gangrene; K43.9 Ventral hernia without obstruction or gangrene; E11.9 Type 2 diabetes mellitus without complications; E55.9 Vitamin D deficiency, unspecified; E87.6 Hypokalemia; I10 Essential (primary) hypertension; F17.200 Nicotine dependence, unspecified, uncomplicated; M54.9 Dorsalgia, unspecified; Z90.49 Acquired absence of other specified parts of digestive tract; Z86.19 Personal history of other infectious and parasitic diseases
CPT/HCPCS: 36415; 74176; 74246; 80053; 80307; 81001; 82270; 82306; 82607; 82962; 83036; 83605; 83690; 83735; 84443; 85025; 85610; 85730; 86803; 87340; 96365; 96368; G0378; J0131; J1815; J2003; J2470; J2543; J3480; J3490

== ENCOUNTER 2024-07-30 20:32 | Inpatient (IN) | payer MEDICAID ==
[~2024-07-30] VITALS: Ht 147.3 cm; Wt 62.0 kg
[~2024-07-30 20:32] MED LIST: METF-489 PO; PANT40TA2 PO; SUCR1SUS26 PO
--- NOTE | 2024-07-30 20:57 | ED.PDOC ---
GI ASSESSMENT HPI Comments 58-year-old female with a history of hypertension, diabetes, bowel ileus due to perforated gastric ulcer in May of 2024, brought in by family complaining of abdominal pain and distention for the past week. Patient localizes the pain to bilateral mid abdominal and flank areas in the upper abdomen, constant and radiating diffusely. She states she has not had a bowel movement in 3 days. States she has not been eating or drinking much due to the abdominal pain and distention. She denies any nausea, vomiting, fever or urinary symptoms. Time Seen by MD: 20:40 Primary Care Provider: non Allergies: Coded Allergies: NO KNOWN ALLERGIES (Unverified , 03/20/21) Home Meds Active Scripts Metformin Hydrochloride (METFORMIN HCL ER) 500 Mg Tab, 1 TAB PO BID, #90 TAB 1 Refill Prov:VAIBHAV CARSON MD 06/23/24 Pantoprazole Sodium Sesquihydr (Protonix) 40 Mg Tab, 40 MG PO DAILY, #30 TAB 1 Refill Prov:VAIBHAV CARSON MD 06/23/24 Sucralfate (CARAFATE SUSP) 1 Gm/10 Ml Ss, 10 ML PO BID, #600 ML 1 Refill Prov:VAIBHAV CARSON MD 06/23/24 Past Medical History PAST MEDICAL HISTORY: DM, HTN Past Medical History (Other): History of perforated gastric ulcer and small bowel ileus Surgical History: BTL, Cholecystectomy, Hysterectomy ENGINEER TECHNICIAN History: No Pertinent ENGINEER TECHNICIAN History, Unknown Family History Family History: Reviewed,noncontributory to illness Social History Smoker: Non-Smoker Alcohol: Occasionally Drugs: Denies Drug Use Lives In: Home All Other Systems: Reviewed and Negative (Comprehensive systems review obtained and negative except for what is stated in the HPI.) Physical Exam General Appearance: Mild Distress HEENT: Other (Pupils and face symmetric. Moist mucous membranes.) Neck: Full Range of Motion, Normal Inspection Respiratory: Decreased Breath Sounds, No Accessory Muscle Use, No Respiratory Distress Cardiovascular: No Edema, No JVD, Regular Rate/Rhythm Breast Exam: Deferred Gastrointestinal: Diffuse, Distended, Tenderness Genitalia: Deferred Pelvic: Deferred Rectal: Deferred Extremities: Normal inspection, Normal range of motion, Non-tender, No pedal edema Neurologic: Alert (Oriented x4), Normal Affect, Normal Mood, Other (Ambulatory) Cerebellar Function: NOT DONE Reflexes: NOT DONE Skin: Dry, Normal Color, Warm Lymphatic: NOT DONE Was a procedure done? Was a procedure done?: No GI differential Dx Differential Diagnosis: Bowel Obstruction, Constipation, Diverticular disease, Gastritis/PUD, Gastroenteritis, Inflammatory BD, Ischemic Bowel, Pancreatitis, UTI, Dehydration, Diabetes/ DKA, Electrolyte Imbalance, Food Poisoning, Bacterial, Viral, Impaction, Malnutrition, Renal Failure, Stress Ulcer, Other (Ileus, among others) X-Ray, Labs, Meds, VS Vital Signs Date Time Temp Pulse Resp B/P (MAP) Pulse Ox O2 Delivery O2 Flow Rate FiO2 07/30/24 21:00 98.8 116 17 151/91 (111) 96 98.8 07/30/24 20:57 109 Lab Test 07/30/24 21:23 07/30/24 21:00 07/30/24 20:52 Range/Units White Blood Count 8.4 4.4-10.8 10^3/uL Red Blood Count 5.27 H 4.0-5.20 10^6/uL Hemoglobin 15.6 12.2-16.2 g/dL Hematocrit 44.4 36.0-46.0 % Mean Corpuscular Volume 84.2 80.0-100.0 fL Mean Corpuscular Hemoglobin 29.5 28.0-32.0 pg Mean Corpuscular Hemoglobin Concent 35.1 32.0-36.0 g/dL Red Cell Distribution Width 13.5 11.8-14.3 % Platelet Count 379 140-450 10^3/uL Mean Platelet Volume 8.4 6.9-10.8 fL Neutrophils (%) (Auto) 53.9 37.0-80.0 % Lymphocytes (%) (Auto) 28.5 10.0-50.0 % Monocytes (%) (Auto) 9.6 0.0-12.0 % Eosinophils (%) (Auto) 7.7 H 0.0-7.0 % Basophils (%) (Auto) 0.3 0.0-2.0 % Neutrophils # (Auto) 4.5 1.6-8.6 10 ^3/uL Lymphocytes # (Auto) 2.4 0.4-5.4 10 ^3/uL Monocytes # (Auto) 0.8 0-1.3 10 ^3/uL Eosinophils # (Auto) 0.6 0-0.8 10 ^3/uL Basophils # (Auto) 0 0-0.2 10 ^3/uL Nucleated Red Blood Cells 0.3 % Sodium Level 139 136-145 mmol/L Potassium Level 3.8 3.5-5.1 mmol/L Chloride Level 106 98-107 mmol/L Carbon Dioxide Level 23 20-31 mmol/L Anion Gap 10 5-15 Blood Urea Nitrogen 6 L 9-23 mg/dL Creatinine 0.53 L 0.550-1.02 mg/dL Glomerular Filtration Rate Calc 106 >90 mL/min BUN/Creatinine Ratio 11.3 10.0-20.0 Serum Glucose 126 H 74-106 mg/dL Lactic Acid Level 1.2 0.4-2.0 mmol/L Calcium Level 9.1 8.7-10.4 mg/dL Total Bilirubin 1.3 H 0.2-1.0 mg/dL Aspartate Amino Transferase (AST) 29 13-40 U/L Alanine Aminotransferase (ALT) 15 7-40 U/L Alkaline Phosphatase 96 46-116 U/L Troponin I High Sensitivity < 3 L </=34 ng/L Total Protein 6.6 5.7-8.2 g/dL Albumin 3.7 3.2-4.8 g/dL Lipase 48 12-53 U/L Urine Color Yellow Yellow Urine Clarity Clear Clear Urine pH 6.0 5.0-9.0 Urine Specific [place] 1.015 1.001-1.035 Urine Protein Trace H Negative Urine Ketones Trace Negative Urine Blood Negative Negative /uL Urine Nitrite Negative Negative Urine Bilirubin Negative Negative Urine Urobilinogen Normal Negative mg/dL Urine Leukocyte Esterase 2+ Negative /uL Urine RBC 1 0 - 4 /hpf Urine Microscopic WBC 8 H 0-5 /HPF Urine Squamous Epithelial Cells Few <5 /hpf Urine Bacteria None seen None Seen /hpf Urine Mucus Few None Seen Urine Glucose Normal Normal mg/dL POC Glucose 133 H 70-106 mg/dl PROCEDURE(s): ABPL - CT AB PEL WO CON-NO ORAL OR IV REASON: abd distention, pain, no bm x 3 days ORDER NUMBER(s): [id number], ACCESSION NUMBER(s): [id number] Exam: CT CT AB PEL WO CON-NO ORAL OR IV History: abd distention, pain, no bm x 3 days Comparison Study: CT CT AB PEL WO CON-NO ORAL OR IV on DOS: 06/19/24 Technique: Multidetector spiral CT of the abdomen was performed from lung bases to pubic symphysis. Imaging was performed without IV contrast. Axial, coronal and sagittal multiplanar reformats were obtained from the axial data set by the technologist. Radiation Dose : 1. Abdomen/Pelvis: CTDIvol 12.15 mGy, DLP 659.23 mGy*cm. Findings: Evaluation of solid organs is limited due to lack of intravenous contrast use. Lung Bases: No acute or significant lung base finding. Normal heart size. No pleural or pericardial effusion. Liver: The liver is normal in size. No focal lesions. Gallbladder and Biliary Tree: Gallbladder is surgically absent. Spleen: Unremarkable Pancreas: The pancreas is grossly normal in appearance. Adrenal Glands: Unremarkable Kidneys: Kidneys are grossly normal without calculi or hydronephrosis. Bladder: Grossly unremarkable for degree of distention. Bowel: Diffuse stomach wall thickening.. Small bowel and colon are normal in caliber and distribution. The appendix is not visualized; however, no secondary findings of acute appendicitis identified. Ascites: Absent Lymphadenopathy: No mesenteric, retroperitoneal or periportal lymphadenopathy. Abdominal Wall and Mesentery: Moderate diffuse ascites. Small defect in the right lower abdominal wall with herniation of mesenteric fat. Vasculature: The visualized abdominal aorta is normal in size and caliber. Evaluation of abdominal and pelvic vessels is limited due to lack of intravenous contrast. Pelvic Organs: The uterus is surgically absent. Musculoskeletal: No aggressive focal bony lesions, acute fractures or dislocation. IMPRESSION: Moderate diffuse ascites. Lack of IV and oral contrast limits evaluation. Diffuse wall thickening of the stomach which may be from acute gastritis versus gastric wall edema from the fluid overload state. END IMPRESSION: ATED BY: JEM MORE DO DICTATED DATE/TIME: 07/30/24 3330 X-Ray, Labs, Meds, VS Comment 58-year-old female with a history of hypertension, diabetes, ileus due to contained perforated gastric ulcer presenting with abdominal distention, constipation and decreased p.o. intake Vitals remarkable for heart rate 109 Exam remarkable for diffuse abdominal tenderness and distention Rhythm strip independently interpreted by me: Sinus rhythm, rate no ectopy. CT abdomen and pelvis IMPRESSION: Moderate diffuse ascites. Lack of IV and oral contrast limits evaluation. Diffuse wall thickening of the stomach which may be from acute gastritis versus gastric wall edema from the fluid overload state. CBC, CMP, lipase, UA and lactate unremarkable Patient treated with the following in the ED: 2 L 0.9 normal saline IV bolus, morphine 4 mg IV, Zofran 4 mg IV, Protonix 40 mg IV IV fluid bolus was ordered and administered prior to CT results. Patient subsequently received Aldactone 50 mg p.o. Patient does not appear septic at this time. Initial tachycardia was likely due to pain. Plan is to admit the patient for evaluation of new onset ascites. Time of 1ST Reevaluation: 21:57 Reevaluation 1ST: Unchanged Patient Education/Counseling: Diagnosis, Treatment, Need For Follow Up Family Education/Counseling: No Family Present Sepsis Sepsis Reasesment Focused Exam Orders: Laboratory Tests 07/30/24 21:23: Lactic Acid Level 1.2 Departure 1 Departure Time of Disposition: 00:00 Impression: Primary Impression: Abdominal ascites Qualified Codes: R18.8 - Other ascites Disposition: ADMITTED INPATIENT Admit to: Med Surg Condition: Fair Critical Care Note Critical Care Time?: No Stability Stability form required: No Heart Score Heart Score: Heart Score Response (Comments) Value History N/A 0 EKG N/A 0 Age N/A 0 Risk Factors N/A 0 Troponin N/A 0 Total 0 DRE HINSON MD Jul 30, 2024 20:57
--- NOTE | 2024-07-30 21:00 | ECG ---
[facility] Test Date: 2024-07-30 Test Time: 20:57:56 Pat Name: HEENA DAUGHERTY Department: ER Room: 0287 Gender: F Schedule Planning Manager: KHOI : 1965 Requested By: DRE SANTAMARIA Order Number: [id number] Reading MD: Wilver Caban Measurements Intervals [place] Rate: 109 P: 53 WI: 154 QRS: -16 QRSD: 83 T: 43 QT: 329 QTc: 444 Interpretive Statements Sinus tachycardia Borderline left axis deviation Low voltage, precordial leads Consider anterior infarct Electronically Signed On 08-01-2024 14:57:22 PDT by Wilver Caban Please click the below link to view image of tracing.
[2024-07-30 21:40] LABS: Basophils # (auto) 0 10 ^3/uL (0-0.2); Basophils % (auto) 0.3 % (0.0-2.0); Eosinophils # (auto) 0.6 10 ^3/uL (0-0.8); Eosinophils % (auto) 7.7 % (0.0-7.0); Hematocrit 44.4 % (36.0-46.0); Hemoglobin 15.6 g/dL (12.2-16.2); Lymphocytes # (auto) 2.4 10 ^3/uL (0.4-5.4); Lymphocytes % (auto) 28.5 % (10.0-50.0); Mean Corpuscular Hemoglobin 29.5 pg (28.0-32.0); Mean Corpuscular Hgb Conc. 35.1 g/dL (32.0-36.0); Mean Corpuscular Volume 84.2 fL (80.0-100.0); Monocytes # (auto) 0.8 10 ^3/uL (0-1.3); Monocytes % (auto) 9.6 % (0.0-12.0); Neutrophils # (auto) 4.5 10 ^3/uL (1.6-8.6); Neutrophils % (auto) 53.9 % (37.0-80.0); Nucleated Red Blood Cells % 0.3 %; Platelet Count (auto) 379 10^3/uL (140-450); Red Blood Cells 5.27 10^6/uL (4.0-5.20); Red Cell Distribution Width 13.5 % (11.8-14.3); White Blood Cell 8.4 10^3/uL (4.4-10.8)
[2024-07-30 21:54] LABS: Alanine Aminotransferase 15 U/L (7-40); Albumin 3.7 g/dL (3.2-4.8); Alkaline Phosphatase 96 U/L (46-116); Anion Gap 10 (5-15); Aspartate Aminotransferase 29 U/L (13-40); BUN/Creatinine Ratio 11.3 (10.0-20.0); Calcium 9.1 mg/dL (8.7-10.4); Carbon Dioxide 23 mmol/L (20-31); Chloride 106 mmol/L (98-107); Lipase 48 U/L (12-53); Potassium 3.8 mmol/L (3.5-5.1); Sodium 139 mmol/L (136-145); Total Protein 6.6 g/dL (5.7-8.2)
[2024-07-30 22:02] LABS: Bilirubin, Total 1.3 mg/dL (0.2-1.0); Blood Urea Nitrogen 6 mg/dL (9-23); Glucose 126 mg/dL (74-106)
[2024-07-30 22:04] LABS: Urine Bacteria None Seen /hpf (None Seen)
[2024-07-30 22:26] LABS: Urine Blood Negative /uL (Negative); Urine Clarity Clear (Clear); Urine Color Yellow (Yellow); Urine Mucus FEW (None Seen); Urine Protein, UAD TRACE (Negative); Urine Specific Gravity 1.015 (1.001-1.035); Urine Squamous Epithelial Cell FEW /hpf (<5); Urine Urobilinogen Normal (Negative); Urine WBC 8 /HPF (0-5)
--- NOTE | 2024-07-30 23:56 | DVH ---
Exam: CT CT AB PEL WO CON-NO ORAL OR IV History: abd distention, pain, no bm x 3 days Comparison Study: CT CT AB PEL WO CON-NO ORAL OR IV on DOS: 06/19/24 Technique: Multidetector spiral CT of the abdomen was performed from lung bases to pubic symphysis. I maging was performed without IV contrast. Axial, coronal and sagittal multiplanar reformats were obta ined from the axial data set by the technologist. Radiation Dose : 1. Abdomen/Pelvis: CTDIvol 12.15 mGy, DLP 659.23 mGy*cm. Findings: Evaluation of solid organs is limited due to lack of intravenous contrast use. Lung Bases: No acute or significant lung base finding. Normal heart size. No pleural or pericardial effusion. Liver: The liver is normal in size. No focal lesions. Gallbladder and Biliary Tree: Gallbladder is surgically absent. Spleen: Unremarkable Pancreas: The pancreas is grossly normal in appearance. Adrenal Glands: Unremarkable Kidneys: Kidneys are grossly normal without calculi or hydronephrosis. Bladder: Grossly unremarkable for degree of distention. Bowel: Diffuse stomach wall thickening.. Small bowel and colon are normal in caliber and distribution . The appendix is not visualized; however, no secondary findings of acute appendicitis identified. Ascites: Absent Lymphadenopathy: No mesenteric, retroperitoneal or periportal lymphadenopathy. Abdominal Wall and Mesentery: Moderate diffuse ascites. Small defect in the right lower abdominal wal l with herniation of mesenteric fat. Vasculature: The visualized abdominal aorta is normal in size and caliber. Evaluation of abdominal a nd pelvic vessels is limited due to lack of intravenous contrast. Pelvic Organs: The uterus is surgically absent. Musculoskeletal: No aggressive focal bony lesions, acute fractures or dislocation. IMPRESSION: Moderate diffuse ascites. Lack of IV and oral contrast limits evaluation. Diffuse wall thickening of the stomach which may be from acute gastritis versus gastric wall edema from the fluid overload state . END IMPRESSION:
[2024-07-31] VITALS (8 sets, daily range): BP systolic 121–147; BP diastolic 75–91; PULSE 81–102; RESP 16–20; TEMP 98–98.4; O2SAT 95–100
[2024-07-31] MEDS ORDERED: POLYETHYLENE GLYCOL 17 GM PWDR PO PRN (01:45)
[2024-07-31] MEDS: SODIUM CHLORIDE 0.9% 2,000 ML IV ONE (02:00)
[2024-07-31] MEDS: SPIRONOLACTONE 25 MG TAB PO ONE (02:01)
[2024-07-31] MEDS: PANTOPRAZOLE 40 MG/10 ML VIAL INJ IV ONE (02:10)
[2024-07-31] MEDS: MORPHINE SULFATE 4 MG/ML SYR/VIAL IV ONE (02:11)
[2024-07-31] MEDS: ONDANSETRON HCL 4 MG/2 ML VIAL IV ONE (02:11)
--- NOTE | 2024-07-31 02:39 | DVH ---
CHEST RADIOGRAPH Indication: SOB Technique: Single frontal view of the chest was obtained COMPARISON: None FINDINGS: Lines and Tubes: None Lungs: Clear Pleura: No effusion. No pneumothorax. Cardiomediastinal contours: Unremarkable Bones: Unremarkable IMPRESSION: 1. No acute disease.
--- NOTE | 2024-07-31 03:02 | DVH ---
INDICATION: Ascites, portal HTN, liver cirrhosis TECHNIQUE: Multiple real-time sonographic images were obtained of the right upper quadrant. COMPARISON: None FINDINGS: The liver demonstrates normal homogeneous echotexture without focal mass lesions. The liver measures 14.1 cm. Normal hepatopetal portal flow identified. No evidence of pleural effusion. Moderate abdominal ascites. There is no intrahepatic or extrahepatic ductal dilatation. The common duct measures 0.4 cm. The gallbladder is surgically absent. The right kidney measures 9.2 cm. The right kidney is normal in contour, size, and shape. The echogen icity is normal. There is no hydronephrosis. The pancreas is not well visualized due to overlying bowel gas. IMPRESSION: 1. Moderate abdominal ascites. 2. Status post cholecystectomy.
--- NOTE | 2024-07-31 04:02 | DVHHPRES ---
History of Present Illness Resident Creating Document: JHBernardaBETZYDREMARLEE RESIDENT History of Present Illness Patient is a 58-year-old female with a past medical history of H pylori presented to the ED with a chief complaint of worsening abdominal pain and abdominal distention. Patient was admitted to the hospital in the end of May 2024 with a chief complaint of abdominal pain and at that time she underwent a CT abdomen pelvis which showed mural thickening of the gastric wall and suggestion of contained perforation following which surgery were consulted and Gastrografin study was performed which showed irregular contour along the greater curvature which could be seen with a gastric ulcer but no contrast extravasation was seen to suggest perforation. Patient was seen by GI and recommended medical management at that time and patient was discharged on a Protonix and Carafate and advised to follow up with the GI outpatient clinic for a endoscopy. Patient reported that since she got discharged about 2 weeks after started to have abdominal distention with worsening abdominal pain and symptoms of early satiety, indigestion, heartburn, nausea and dry heaving but no emesis. she denied any episode of blood in stool, melena. Since May she reports about 25-30 lb weight loss, has been feeling fatigued. She also reports that when she lays down feel short of breath and has difficulty sleeping. Past medical history: H pylori infection treated Past surgical history: None Social history: Patient is put 3 months ago and reported she was only drinking on the weekends, denies smoking and any other drug use Home medications: Protonix and Carafate Review of Systems Review of Systems Patient seen and examined at the bedside Reports of generalized abdominal pain and feels her abdomen is getting enlarged No fever, chills, nausea or vomiting, diarrhea Reports last bowel movement was 3 days ago Allergies: Coded Allergies: NO KNOWN ALLERGIES (Unverified , 03/20/21) Medications Current Medications Medications Dose Ordered Sig/Blanka Route Start Time Stop Time Status Last Admin Dose Admin Pantoprazole Sodium 40 mg DAILY IV 07/31/24 10:00 Sucralfate 1 gm TID@0600,1130,2200 PO 07/31/24 06:00 Polyethylene Glycol 17 gm DAILYPRN PRN PO 07/31/24 01:45 Furosemide 20 mg DAILY IV 08/01/24 10:00 Spironolactone 50 mg DAILY PO 07/31/24 10:00 Exam Vital Signs Vital Signs Date Time Temp Pulse Resp B/P (MAP) Pulse Ox O2 Delivery O2 Flow Rate FiO2 07/31/24 01:55 98.7 105 20 132/91 (105) 97 98.7 07/31/24 01:55 Room Air Exam Gen - no pallor, no icterus, no cyanosis, no clubbing, no LAD, no edema . Skin - Patients skin is warm and dry. HEENT - normocephalic, atraumatic, moist mucous membranes. Neck - full ROM, no LAD, no JVD Pulmonary - B/L equal breath sounds, no crackles, no wheezing. cardiovascular - regular S1,S2 heard, no added sounds, no murmurs heard. peripheral pulses normal radial 2+, pedal 2+. capillary refill normal <2 secs. GI - soft, abdominal tenderness in the right upper quadrant, left lower quadrant. no hepatospleenomegaly. Bowel sounds hypoactive Neurological - Patient is A/O X 3 . Bilateral upper extremity strength 5/5, bilateral lower extremity strength 5/5, no facial droop, normal speech, no tremor, no sensory deficiets. Labs/Xrays Labs Test 07/31/24 02:55 07/30/24 21:23 07/30/24 21:00 07/30/24 20:52 Range/Units White Blood Count 8.4 4.4-10.8 10^3/uL Red Blood Count 5.27 H 4.0-5.20 10^6/uL Hemoglobin 15.6 12.2-16.2 g/dL Hematocrit 44.4 36.0-46.0 % Mean Corpuscular Volume 84.2 80.0-100.0 fL Mean Corpuscular Hemoglobin 29.5 28.0-32.0 pg Mean Corpuscular Hemoglobin Concent 35.1 32.0-36.0 g/dL Red Cell Distribution Width 13.5 11.8-14.3 % Platelet Count 379 140-450 10^3/uL Mean Platelet Volume 8.4 6.9-10.8 fL Neutrophils (%) (Auto) 53.9 37.0-80.0 % Lymphocytes (%) (Auto) 28.5 10.0-50.0 % Monocytes (%) (Auto) 9.6 0.0-12.0 % Eosinophils (%) (Auto) 7.7 H 0.0-7.0 % Basophils (%) (Auto) 0.3 0.0-2.0 % Neutrophils # (Auto) 4.5 1.6-8.6 10 ^3/uL Lymphocytes # (Auto) 2.4 0.4-5.4 10 ^3/uL Monocytes # (Auto) 0.8 0-1.3 10 ^3/uL Eosinophils # (Auto) 0.6 0-0.8 10 ^3/uL Basophils # (Auto) 0 0-0.2 10 ^3/uL Nucleated Red Blood Cells 0.3 % Sodium Level 139 136-145 mmol/L Potassium Level 3.8 3.5-5.1 mmol/L Chloride Level 106 98-107 mmol/L Carbon Dioxide Level 23 20-31 mmol/L Anion Gap 10 5-15 Blood Urea Nitrogen 6 L 9-23 mg/dL Creatinine 0.53 L 0.550-1.02 mg/dL Glomerular Filtration Rate Calc 106 >90 mL/min BUN/Creatinine Ratio 11.3 10.0-20.0 Serum Glucose 126 H 74-106 mg/dL Lactic Acid Level 1.2 0.4-2.0 mmol/L Calcium Level 9.1 8.7-10.4 mg/dL Total Bilirubin 1.3 H 0.2-1.0 mg/dL Aspartate Amino Transferase (AST) 29 13-40 U/L Alanine Aminotransferase (ALT) 15 7-40 U/L Alkaline Phosphatase 96 46-116 U/L Total Protein 6.6 5.7-8.2 g/dL Albumin 3.7 3.2-4.8 g/dL Lipase 48 12-53 U/L Urine Color Yellow Yellow Urine Clarity Clear Clear Urine pH 6.0 5.0-9.0 Urine Specific [place] 1.015 1.001-1.035 Urine Protein Trace H Negative Urine Ketones Trace Negative Urine Blood Negative Negative /uL Urine Nitrite Negative Negative Urine Bilirubin Negative Negative Urine Urobilinogen Normal Negative mg/dL Urine Leukocyte Esterase 2+ Negative /uL Urine RBC 1 0 - 4 /hpf Urine Microscopic WBC 8 H 0-5 /HPF Urine Squamous Epithelial Cells Few <5 /hpf Urine Bacteria None seen None Seen /hpf Urine Mucus Few None Seen Urine Glucose Normal Normal mg/dL POC Glucose 133 H 70-106 mg/dl Assessment/Plan Assessment/Plan Intractable abdominal pain Moderate ascites ?Liver disease ?Heart failure ?Malignancy Possible acute gastritis Possible peptic ulcer disease Constipation - CT abdomen pelvis without contrast shows moderate diffuse ascites with diffuse wall thickening of the stomach which could be from acute gastritis versus gastri c wall edema fluid overload state - Right upper quadrant ultrasound showed moderate abdominal ascites, no liver abnormality - IV Protonix and Carafate p.o. - echocardiogram pending - GI consult ( patient was discharged last time to be followed up by the GI in the clinic for possible endoscopy) - spironolactone and IV furosemide - clear liquid diet - MiraLax for constipation - stool occult blood pending - CT abdomen pelvis with IV contrast to look for any abdominal malignancy Hypertensive heart disease - echocardiogram pending - spironolactone and furosemide Goals of care discussed with the patient for over 29 minutes. Full code Plan discussed with Dr. Soto Plan discussed with: Patient My Orders Orders - YAW DOUGLAS Procedure Category Date Status Time Admit ADMIT 07/31/24 Transmitted 01:26 Stat Ekg For Chest EVITA 07/31/24 In Process Pain 01:26 Abdomen Limited US 07/31/24 Resulted 01:43 Complete Blood Count LAB 07/31/24 Logged 04:00 Comprehensive LAB 07/31/24 Logged Metabolic Panel 04:00 PTPTT LAB 07/31/24 Logged 04:00 Echo 2d Mode Cardiac US 07/31/24 Logged DOP 01:43 Pantoprazole PHA 07/31/24 In Process (Protonix) 10:00 Sucralfate Susp PHA 07/31/24 In Process (Carafate Susp) 06:00 Stool Occult Blood LAB 07/31/24 Logged 01:43 Polyethylene Glycol PHA 07/31/24 In Process 17g Powder (Miralax 01:45 Spironolactone PHA 07/31/24 In Process (Aldactone) 10:00 Clear Liq Diet DIET 07/31/24 Transmitted Breakfast Chest Xray 1 View XY 07/31/24 Resulted 01:43 Furosemide Injection PHA 08/01/24 In Process (Lasix Injection) 10:00 Date of Service: Jul 31, 2024 Billing Provider: LUCA SOTO MD Common Visit Codes: 80623-OYWGPOC INP/OBS CARE (HIGH) Secondary Visit Codes: 30883-YRSAEWHO CARE PLAN 30 MINUTES YAW DOUGLAS RESIDENT Jul 31, 2024 04:02
[2024-07-31] MEDS: SUCRALFATE 1 GM/10 ML ORAL SUSP PO SCH (05:39)
[2024-07-31] MEDS: POLYETHYLENE GLYCOL 17 GM PWDR PO ONE (05:39)
[2024-07-31] MEDS: FUROSEMIDE 40 MG/4 ML VIAL IV ONE (05:40)
[2024-07-31 07:04] LABS: Basophils # (auto) 0.1 10 ^3/uL (0-0.2); Basophils % (auto) 0.9 % (0.0-2.0); Eosinophils # (auto) 0.6 10 ^3/uL (0-0.8); Eosinophils % (auto) 8.4 % (0.0-7.0); Hematocrit 44.8 % (36.0-46.0); Hemoglobin 15.8 g/dL (12.2-16.2); Lymphocytes # (auto) 1.9 10 ^3/uL (0.4-5.4); Lymphocytes % (auto) 25.2 % (10.0-50.0); Mean Corpuscular Hemoglobin 29.9 pg (28.0-32.0); Mean Corpuscular Hgb Conc. 35.4 g/dL (32.0-36.0); Mean Corpuscular Volume 84.4 fL (80.0-100.0); Monocytes # (auto) 0.7 10 ^3/uL (0-1.3); Monocytes % (auto) 9.3 % (0.0-12.0); Neutrophils # (auto) 4.2 10 ^3/uL (1.6-8.6); Neutrophils % (auto) 56.2 % (37.0-80.0); Nucleated Red Blood Cells % 0.1 %; Platelet Count (auto) 346 10^3/uL (140-450); Red Blood Cells 5.31 10^6/uL (4.0-5.20); Red Cell Distribution Width 13.4 % (11.8-14.3); White Blood Cell 7.4 10^3/uL (4.4-10.8)
[2024-07-31 07:06] LABS: INR 1.23 (0.9-1.15); Prothrombin Time 12.8 sec (9.3-11.8)
[2024-07-31 07:18] LABS: Alanine Aminotransferase 16 U/L (7-40); Alkaline Phosphatase 97 U/L (46-116); Carbon Dioxide 22 mmol/L (20-31); Chloride 105 mmol/L (98-107)
[2024-07-31 07:19] LABS: Albumin 3.8 g/dL (3.2-4.8); Anion Gap 13 (5-15); Aspartate Aminotransferase 33 U/L (13-40); BUN/Creatinine Ratio 13.6 (10.0-20.0); Sodium 140 mmol/L (136-145); Total Protein 6.6 g/dL (5.7-8.2)
[2024-07-31 07:22] LABS: Bilirubin, Total 1.5 mg/dL (0.2-1.0); Blood Urea Nitrogen 6 mg/dL (9-23); Glucose 123 mg/dL (74-106); Potassium 3.5 mmol/L (3.5-5.1)
[2024-07-31] MEDS ORDERED: IODIXANOL 320MG/ML 100ML BTL IV ONE (08:26)
[2024-07-31] MEDS: PANTOPRAZOLE 40 MG/10 ML VIAL INJ IV SCH (09:03)
[2024-07-31] MEDS: SPIRONOLACTONE 25 MG TAB PO SCH (09:05)
--- NOTE | 2024-07-31 09:40 | DVH ---
Exam: CT CT AB PEL WITH IV CON ONLY History: Ascites, abdominal malignancy Comparison Study: None TECHNIQUE: A digital volcanology teacher image was obtained. During the uneventful, intravenous administration of c ontrast material, multislice data acquisition was obtained through the abdomen and pelvis. The data s et was subsequently reconstructed into axial images. Images were reviewed on a work station using a c ombination of axial and multiplanar using a variety of window levels and settings. Radiation Dose Information: CT Dose: CTDI volume is 7.91 mGy. Dose-length product is 436.62 mGy*cm FINDINGS: Lung Bases: No acute or significant lung base finding. Normal heart size. No pleural or pericardial effusion. Liver: Hepatic cirrhosis. Gallbladder and Biliary Tree: Unremarkable Spleen: Unremarkable Pancreas: The pancreas is normal in appearance without focal lesions or abnormal enhancement. Adrenal Glands: Unremarkable Kidneys: Kidneys demonstrate normal symmetric enhancement without focal lesions, calculi or hydroneph rosis. Bladder: Unremarkable Bowel: Diffuse wall thickening of the stomach which may be from acute gastritis versus gastric wall e carol ann from the fluid overload state Small bowel and colon are normal in caliber and distribution. The appendix is not visualized; however, no secondary findings of acute appendicitis identified. Ascites: Moderate ascites. Lymphadenopathy: No mesenteric, retroperitoneal or periportal lymphadenopathy. Abdominal Wall and Mesentery: Unremarkable. Vasculature: The visualized abdominal aorta is normal in size and caliber. Abdominal and pelvic vess els demonstrate normal enhancement. Pelvic Organs: Unremarkable Musculoskeletal: No aggressive focal bony lesions, acute fractures or dislocation. Soft tissues: Unremarkable. IMPRESSION: Hepatic cirrhosis with moderate ascites. Diffuse wall thickening of the stomach which may be from acute gastritis versus gastric wall edema fr om the fluid overload state All CT scans at this medical facility are performed using dose modulation techniques as appropriate t o a performed exam including the following: Automated exposure control was utilized; adjustment of th e MA and/or KV according to patient size; and use of iterative reconstruction technique.
--- NOTE | 2024-07-31 11:25 | DVHPNRES ---
Progress Note Date Seen: Jul 31, 2024 Resident Creating Document: PRADIP RICO RESIDENT Has the PT tested + for MRSA If YES, has PT been informed?: No Medical Necessity Reason Pt with a Central, PICC or Fol: No Subjective Review of Systems Patient is a 58-year-old female with a past medical history of H pylori presented to the ED with a chief complaint of worsening abdominal pain and abdominal distention. Patient was admitted to the hospital in the end of May 2024 with a chief complaint of abdominal pain and at that time she underwent a CT abdomen pelvis which showed mural thickening of the gastric wall and suggestion of contained perforation following which surgery were consulted and Gastrografin study was performed which showed irregular contour along the greater curvature which could be seen with a gastric ulcer but no contrast extravasation was seen to suggest perforation. Patient was seen by GI and recommended medical management at that time and patient was discharged on a Protonix and Carafate and advised to follow up with the GI outpatient clinic for a endoscopy. Patient reported that since she got discharged about 2 weeks after started to have abdominal distention with worsening abdominal pain and symptoms of early satiety, indigestion, heartburn, nausea and dry heaving but no emesis. she denied any episode of blood in stool, melena. Since May she reports about 25-30 lb weight loss, has been feeling fatigued. She also reports that when she lays down feel short of breath and has difficulty sleeping. Past medical history: H pylori infection treated Past surgical history: None Social history: Patient is put 3 months ago and reported she was only drinking on the weekends, denies smoking and any other drug use Home medications: Protonix and Carafate 07/31/24: new CT scan with contrast showed Diffuse wall thickening of the stomach which may be from acute gastritis versus gastric wall edema from the fluid overload state, UA showed pyuria but patient doesnt have any symptoms, we are pending on GI consult for possible EGD with biopsy Objective vital signs Vital Sign Date Time Temp Pulse Resp B/P (MAP) Pulse Ox O2 Delivery O2 Flow Rate FiO2 07/31/24 09:00 98.2 81 17 128/84 (99) 95 98.2 07/31/24 08:00 Room Air* 0 21 Total Intake and Output 07/30/24 07/30/24 07/31/24 15:00 23:00 07:00 Intake Total 2000 ml Balance 2000 ml medications Current Medications Medications Dose Ordered Sig/Blanka Route Start Time Stop Time Status Last Admin Dose Admin Pantoprazole Sodium 40 mg DAILY IV 07/31/24 10:00 07/31/24 09:03 40 MG Sucralfate 1 gm TID@0600,1130,2200 PO 07/31/24 06:00 07/31/24 05:39 1 GM Polyethylene Glycol 17 gm DAILYPRN PRN PO 07/31/24 01:45 Furosemide 20 mg DAILY IV 08/01/24 10:00 Spironolactone 50 mg DAILY PO 07/31/24 10:00 07/31/24 09:05 50 MG Examination Gen - no pallor, no icterus, no cyanosis, no clubbing, no LAD, no edema . Skin - Patients skin is warm and dry. HEENT - normocephalic, atraumatic, moist mucous membranes. Neck - full ROM, no LAD, no JVD Pulmonary - B/L equal breath sounds, no crackles, no wheezing. cardiovascular - regular S1,S2 heard, no added sounds, no murmurs heard. peripheral pulses normal radial 2+, pedal 2+. capillary refill normal <2 secs. GI - soft, abdominal tenderness in the right upper quadrant, left lower quadrant. no hepatospleenomegaly. Bowel sounds hypoactive Neurological - Patient is A/O X 3 . Bilateral upper extremity strength 5/5, bilateral lower extremity strength 5/5, no facial droop, normal speech, no tremor, no sensory deficiets. laboratory and microbiology Laboratory Tests 07/31/24 06:26 Test 07/31/24 06:26 Range/Units Serum Glucose 123 H 74-106 mg/dL Microbiology Date/Time Source Procedure Growth Status 07/30/24 21:00 Voided Urine Urine Culture - Preliminary Resulted Problem List/Assessment/Plan Problem List/Assessment/Plan #Intractable abdominal pain #Moderate ascites ?Liver disease ?Heart failure ?Malignancy #Possible acute gastritis #Possible peptic ulcer disease #Constipation #diffuse wall thickening of the stomach #Hyperbillirubinemia - CT abdomen pelvis without contrast shows moderate diffuse ascites with diffuse wall thickening of the stomach which could be from acute gastritis versus gastric wall edema fluid overload state - Right upper quadrant ultrasound showed moderate abdominal ascites, no liver abnormality - IV Protonix and Carafate p.o. - echocardiogram pending - GI consult ( patient was discharged last time to be followed up by the GI in the clinic for possible endoscopy) - spironolactone and IV furosemide - clear liquid diet - MiraLax for constipation - stool occult blood pending - CT abdomen pelvis with IV contrast to look for any abdominal malignancy #Possible Hypertensive heart disease with systolic/diastolic dysfunction - ECHO pending - spironolactone and furosemide Goals of care discussed with the patient for over 29 minutes. Full code Plan discussed with Dr. Thomas Plan discussed with: Patient, Other My Orders My Orders Orders - PRADIP RICO RESIDENT Procedure Category Date Status Time * Gi [facility] [employer] Manager CONS 07/31/24 Transmitted 08:26 Date of Service: Jul 31, 2024 Billing Provider: MATTIE THOMAS MD Common Visit Codes: [id number] INP/OBS CARE(HIGH) PRADIP RICO RESIDENT Jul 31, 2024 11:25 MATTIE THOMAS MD Aug 01, 2024 11:11
[2024-07-31] MEDS: FUROSEMIDE 40 MG/4 ML VIAL IV SCH (11:58)
--- NOTE | 2024-07-31 14:09 | DVHINCON2 ---
YO ROBERTS 07/31/24 1409: GI Consult Consult Note GI consult note Date of Consultation:08/03/2024 Chief Complaint:abd pain Referring Physician:Dr Landin H&P: 58-year-old female with a past medical history of H pylori presented to the ED with a chief complaint of worsening abdominal pain and abdominal distention. Patient was admitted to the hospital in the end of May 2024 with a chief complaint of abdominal pain and at that time she underwent a CT abdomen pelvis which showed mural thickening of the gastric wall and suggestion of contained perforation following which surgery were consulted and Gastrografin study was performed which showed irregular contour along the greater curvature which could be seen with a gastric ulcer but no contrast extravasation was seen to suggest perforation. Patient was seen by GI and recommended medical management at that time and patient was discharged on a Protonix and Carafate and advised to follow up with the GI outpatient clinic for a endoscopy. Patient reported that since she got discharged about 2 weeks after started to have abdominal distention with worsening abdominal pain and symptoms of early satiety, indigestion, heartburn, nausea and dry heaving but no emesis. she denied any episode of blood in stool, melena. Since May she reports about 25-30 lb weight loss, has been feeling fatigued. She also reports that when she lays down feel short of breath and has difficulty sleeping. Past Medical History: h pylori Past Surgical History: denies Social History: + drinking ETOH Family History: noncontributory Review of Systems: Constitutional: no fever, chill, weight loss HEENT: no eye pain, no hearing loss, no oral lesion, no scleral icterus Heart: no chest pain, no chest pressure Lung: no cough, no dyspnea with exertion Abdomen: see HPI Physical exam: General: NAD, AAOX3 Chest: lung doss clear to auscultation Heart: RRR, no murmur Abdomen: [id number], no tenderness to palpation, +BS Labs: Test 07/31/24 06:26 Range/Units Serum Glucose 123 H 74-106 mg/dL Microbiology Date/Time Source Procedure Growth Status 07/30/24 21:00 Voided Urine Urine Culture - Preliminary Resulted Imaging: CT abd pelvis IMPRESSION: Hepatic cirrhosis with moderate ascites. Diffuse wall thickening of the stomach which may be from acute gastritis versus gastric wall edema from the fluid overload state ABD US IMPRESSION: 1. Moderate abdominal ascites. 2. Status post cholecystectomy. Assessment: abd pain cirrhosis gastritis ascites Plan: discussed c Dr Sukumar Reyes protonix and carafate IR consult for paracentesis will continue to monitor Thank you for this consult Date of Service: Jul 31, 2024 Billing Provider: YO ROBERTS Common Visit Codes: [id number] INP/OBS CARE (HIGH), [id number] INP/OBS CARE(LOW) Consultation Codes: [id number] CONSULT <60MIN CHEMA REYSE MD 08/02/24 2229: GI Consult Consult Note Date of consult 07/31/24 YO ROBERTS Jul 31, 2024 14:09 CHEMA REYES MD Aug 02, 2024 22:29
[2024-08-01] VITALS (8 sets, daily range): BP systolic 122–142; BP diastolic 75–86; PULSE 96–110; RESP 14–24; TEMP 98.2–99; O2SAT 94–97
[2024-08-01 06:28] LABS: Basophils # (auto) 0.1 10 ^3/uL (0-0.2); Eosinophils # (auto) 0.6 10 ^3/uL (0-0.8); Eosinophils % (auto) 6.2 % (0.0-7.0); Hematocrit 43.9 % (36.0-46.0); Hemoglobin 15.5 g/dL (12.2-16.2); Lymphocytes # (auto) 1.9 10 ^3/uL (0.4-5.4); Lymphocytes % (auto) 19.1 % (10.0-50.0); Mean Corpuscular Hemoglobin 29.5 pg (28.0-32.0); Mean Corpuscular Hgb Conc. 35.3 g/dL (32.0-36.0); Mean Corpuscular Volume 83.7 fL (80.0-100.0); Monocytes # (auto) 0.8 10 ^3/uL (0-1.3); Monocytes % (auto) 8.6 % (0.0-12.0); Neutrophils # (auto) 6.4 10 ^3/uL (1.6-8.6); Neutrophils % (auto) 65.1 % (37.0-80.0); Nucleated Red Blood Cells % 0.1 %; Platelet Count (auto) 362 10^3/uL (140-450); Red Blood Cells 5.25 10^6/uL (4.0-5.20); Red Cell Distribution Width 13.3 % (11.8-14.3); White Blood Cell 9.8 10^3/uL (4.4-10.8)
[2024-08-01 06:41] LABS: Alanine Aminotransferase 11 U/L (7-40); Albumin 3.8 g/dL (3.2-4.8); Alkaline Phosphatase 97 U/L (46-116); Anion Gap 12 (5-15); Aspartate Aminotransferase 28 U/L (13-40); Calcium 9.1 mg/dL (8.7-10.4); Carbon Dioxide 25 mmol/L (20-31); Chloride 103 mmol/L (98-107); Sodium 140 mmol/L (136-145); Total Protein 6.9 g/dL (5.7-8.2)
[2024-08-01 06:43] LABS: BUN/Creatinine Ratio 10.4 (10.0-20.0); Bilirubin, Total 1.6 mg/dL (0.2-1.0); Blood Urea Nitrogen < 5 mg/dL (9-23); Glucose 119 mg/dL (74-106); Potassium 3.2 mmol/L (3.5-5.1)
[2024-08-01] MEDS ORDERED: SODIUM CHLORIDE LOCK 10 ML ONE (09:36)
[2024-08-01] MEDS ORDERED: FUROSEMIDE 40 MG/4 ML VIAL IV SCH (10:00)
[2024-08-01 10:22] LABS: Hepatitis B Surface Antigen Negative (Negative)
[2024-08-01 10:43] LABS: Hepatitis A Ab IgM Negative; Hepatitis B Core IgM Negative (Negative); Hepatitis C Antibody Negative (Negative)
--- NOTE | 2024-08-01 10:49 | DVHPNRES ---
Progress Note Date Seen: Aug 01, 2024 Resident Creating Document: PRADIP RICO RESIDENT Has the PT tested + for MRSA If YES, has PT been informed?: No Medical Necessity Reason Pt with a Central, PICC or Fol: No Subjective Review of Systems Patient is a 58-year-old female with a past medical history of H pylori presented to the ED with a chief complaint of worsening abdominal pain and abdominal distention. Patient was admitted to the hospital in the end of May 2024 with a chief complaint of abdominal pain and at that time she underwent a CT abdomen pelvis which showed mural thickening of the gastric wall and suggestion of contained perforation following which surgery were consulted and Gastrografin study was performed which showed irregular contour along the greater curvature which could be seen with a gastric ulcer but no contrast extravasation was seen to suggest perforation. Patient was seen by GI and recommended medical management at that time and patient was discharged on a Protonix and Carafate and advised to follow up with the GI outpatient clinic for a endoscopy. Patient reported that since she got discharged about 2 weeks after started to have abdominal distention with worsening abdominal pain and symptoms of early satiety, indigestion, heartburn, nausea and dry heaving but no emesis. she denied any episode of blood in stool, melena. Since May she reports about 25-30 lb weight loss, has been feeling fatigued. She also reports that when she lays down feel short of breath and has difficulty sleeping. Past medical history: H pylori infection treated Past surgical history: None Social history: Patient is put 3 months ago and reported she was only drinking on the weekends, denies smoking and any other drug use Home medications: Protonix and Carafate 07/31/24: new CT scan with contrast showed Diffuse wall thickening of the stomach which may be from acute gastritis versus gastric wall edema from the fluid overload state, UA showed pyuria but patient doesnt have any symptoms, we are pending on GI consult for possible EGD with biopsy 08/01/24: EGD done: 10 cm superficially spreading ulcerated gastric mass on the greater curvature side extending from the proximal stomach and cardia area up to the midbody of the stomach from which biopsies were obtained, paracentesis was done 3.6 Lt were removed Objective vital signs Vital Sign Date Time Temp Pulse Resp B/P (MAP) Pulse Ox O2 Delivery O2 Flow Rate FiO2 08/01/24 09:53 141/88 08/01/24 09:00 99.0 96 18 95 99.0 08/01/24 08:10 Room Air* 0 21 Total Intake and Output 07/31/24 07/31/24 08/01/24 15:00 23:00 07:00 Intake Total 250 ml 0 ml Balance 250 ml 0 ml medications Current Medications Medications Dose Ordered Sig/Blanka Route Start Time Stop Time Status Last Admin Dose Admin Pantoprazole Sodium 40 mg DAILY IV 07/31/24 10:00 08/01/24 09:50 40 MG Sucralfate 1 gm TID@0600,1130,2200 PO 07/31/24 06:00 08/01/24 06:00 1 GM Polyethylene Glycol 17 gm DAILYPRN PRN PO 07/31/24 01:45 Spironolactone 50 mg DAILY PO 07/31/24 10:00 08/01/24 09:53 50 MG Furosemide 40 mg DAILY IV 07/31/24 11:45 08/01/24 09:53 40 MG Examination Gen - no pallor, no icterus, no cyanosis, no clubbing, no LAD, no edema . Skin - Patients skin is warm and dry. HEENT - normocephalic, atraumatic, moist mucous membranes. Neck - full ROM, no LAD, no JVD Pulmonary - B/L equal breath sounds, no crackles, no wheezing. cardiovascular - regular S1,S2 heard, no added sounds, no murmurs heard. peripheral pulses normal radial 2+, pedal 2+. capillary refill normal <2 secs. GI - soft, abdominal tenderness in the right upper quadrant, left lower quadrant. no hepatospleenomegaly. Bowel sounds hypoactive Neurological - Patient is A/O X 3 . Bilateral upper extremity strength 5/5, bilateral lower extremity strength 5/5, no facial droop, normal speech, no tremor, no sensory deficiets laboratory and microbiology Laboratory Tests 08/01/24 05:00 Test 08/01/24 05:00 Range/Units Serum Glucose 119 H 74-106 mg/dL Microbiology Date/Time Source Procedure Growth Status 07/30/24 21:23 Blood Blood Culture - Preliminary NO GROWTH AFTER 24 HOURS OF INCUBATION. 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 on the greater curvature side extending from the proximal stomach and cardia area up to the midbody of the stomach #2 mm benign-appearing gastric antral nodule #Rule out stomach cancer #sp paracentesis #Malignant ascites #Intractable abdominal pain #Constipation #diffuse wall thickening of the stomach #Hyperbillirubinemia - CT abdomen pelvis without contrast shows moderate diffuse ascites with diffuse wall thickening of the stomach which could be from acute gastritis versus gastric wall edema fluid overload state - Right upper quadrant ultrasound showed moderate abdominal ascites, no liver abnormality - IV Protonix and Carafate p.o. - GI consult: EGD done, biopsies were taken, need to f/u to rule out cancer Paracentesis done: 3.6 lt drained - spironolactone and IV furosemide - clear liquid diet - MiraLax for constipation - stool occult blood pending - CT abdomen pelvis with IV contrast to look for any abdominal malignancy #Hypertensive heart disease with sdiastolic dysfunction - - echocardiogram : EF 55% and LVH - spironolactone and furosemide Goals of care discussed with the patient for over 29 minutes. Full code Plan discussed with Dr. Thomas Plan discussed with: Patient, Other My Orders My Orders Orders - PRADIP RICO Procedure Category Date Status Time Furosemide Injection [facility] 07/31/24 In Process (Lasix Injection) 11:45 Paracentesis US 08/01/24 Taken Date of Service: Aug 01, 2024 Billing Provider: MATTIE THOMAS MD Common Visit Codes: [id number] INP/OBS CARE(HIGH) PRADIP RICO Aug 01, 2024 10:49 MATTIE THOMAS MD Aug 02, 2024 13:45
--- NOTE | 2024-08-01 11:08 | DVH ---
US PARACENTESIS, HISTORY: PARACENTESIS PROCEDURE: Informed consent was obtained. The patient was placed in supine position. A limited locali zation ultrasound of the abdomen was obtained, and the skin site over the largest pocket of fluid was marked and entry site was prepped with chlorhexidine which was allowed to dry and draped in the usua l sterile fashion. Time out was performed. Following administration of 1% lidocaine local anesthetic, a 5 Gabonese centesis needle catheter was percutaneously inserted into the peritoneal collection until fluid was aspirated. The catheter was advanced into the fluid collection and the needle removed. Abo ut 3600 cc of fluid was aspirated . The catheter was then removed and a sterile dressing applied. No immediate complication was identified. FINDINGS: Limited ultrasound imaging demonstrates mild ascites. Aspirated fluid was clear and serous. IMPRESSION: US-guided paracentesis with 3.6L removed.
--- NOTE | 2024-08-01 12:59 | DVHSR ---
APPROVED REPORT EXAM: Two-dimensional and M-mode echocardiogram with Doppler and color Doppler. Blood Pressure: 147/99 mmHg INDICATION Heart Failure RISK FACTORS Height: 4'10", Weight: 135 DIMENSIONS LVDd3.8 (3.8-5.7cm)LA (2D)3.2 (1.9-4.0cm)Aortic Root2.4 (2.0-3.7cm) LVDs2.7 (2.5-4.0cm)LA (MM) (1.9-4.0cm)Aortic Cusp Exc1.5 (1.5-2.0cm) EF (%) 55.0 (55-70%)Rt. Atrium2.3 (1.9-4.0cm)Asc. Aorta cm IVSd1.0 (0.7-1.1cm)RV (D) (1.8-2.4cm) PWd1.4 (0.7-1.1cm) Mitral Valve MitralMitral Stenosis E wave0.37m/sMV Mean GR.mmHg A wave0.77m/sMV Peak GR.mmHg E/A ratio0.52D MVAcm2 DECEL [id number] 1/2 Timems Aortic Valve Aortic ValveAortic Stenosis V10.72m/Caridad Mean GR.3mmHg V21.15m/Caridad Peak GR.5mmHg LVOT Diameter2.0 (1.8-2.4cm)Doppler AVA1.97cm2 Pulmonic Valve V20.66m/s Other Information Quality : Technically LimitedRhythm : Technically limited study due to body habitus. Conclusion lvef 55% by visual estimate mild to moderate LVH normal rv function left atrium enlarged mild
[2024-08-01 14:28] LABS: Body Fluid Red Blood Cells 2685 CUMM (0-2000); Body Fluid White Blood Cells 2899 CUMM (0-200)
[2024-08-01] MEDS: LIDOCAINE VISCOUS 2% 15ML UD ONE (16:59)
[2024-08-01] MEDS: fentaNYL CITRATE 100 MCG/2 ML VL ONE (17:00)
[2024-08-01] MEDS: diphenhdrAMINE HCL 50 MG/1 ML VL ONE (17:00)
[2024-08-01] MEDS: MIDAZOLAM HCL 5 MG/ML-1ML VIAL ONE (17:00)
--- NOTE | 2024-08-01 17:20 | DVHOP2 ---
Operative Report DATE OF OPERATION: 08/01/24 PROCEDURE: Upper Endoscopy with biopsy. PREOPERATIVE INDICATION: The patient is a 58 -year-old female undergoing endoscopy for abdominal pain distention and abnormal finding GI tract imaging POSTOPERATIVE DIAGNOSES: 1. Patient had a large 10 cm superficially spreading ulcerated gastric mass on the greater curvature side extending from the proximal stomach and cardia area up to the midbody of the stomach from which biopsies were obtained 2. There was a 2 mm benign-appearing gastric antral nodule that was also seen and removed by cold biopsy forceps 3. Otherwise normal examination up to the 2nd and 3rd part of the duodenum with no active bleeding and good bile drainage PROCEDURE PERFORMED BY: Chema Reyes GI NURSE: Tressa SCOPE: Olympus videoendoscope. ASA CLASS: 3. PREOPERATIVE MEDICATIONS: Versed 3 mg, Fentanyl 50 mcg, Benadryl 50 mg I administered moderate sedation throughout this _10_ minutes procedure. An independent trained observer pushed medications at my direction, and monitored the patient's level of consciousness and physiological status throughout. PROCEDURE IN DETAIL: After obtaining an informed consent, the patient was placed on left lateral decubitus position. The patient was then sedated with the above medications. A bite block was placed between her teeth. The endoscope was then passed through the oropharynx, into the esophagus, and through the stomach and pylorus up to the second and third part of the duodenum. The endoscope was then withdrawn. The 2nd and 3rd part of the duodenum and the duodenal bulb were normal except for mild duodenitis The pre-pyloric area antrum showed mild gastritis. There was a 2-3 mm superficial antral nodule that was removed by cold biopsy forceps On retroflexion and straight on view the patient had a large superficially spreading ulcerated mass extending from the proximal stomach into the midbody of the stomach about 10-12 cm in size This was mostly on the greater curvature of the stomach and multiple biopsies were obtained. On retroflexion otherwise the cardia and GE junction were normal. The endoscope was then withdrawn into distal esophagus where the patient had no evidence of a hiatal hernia and no significant esophagitis The remaining distal and proximal esophagus and oropharynx were unremarkable The patient tolerated the procedure well without difficulty. COMPLICATIONS : None SPECIMENS: 1. Duodenal biopsy 2. Gastric antral nodule biopsy 3. Gastric mass biopsies DISPOSITION: Transfer back to the floor Stable PLAN: 1. Await for biopsy result 2. Will place pt on Protonix 40 mg bid IV 3. Carafate 1 g p.o. 4 times a day 4. Clear liquid diet advance to full liquid if tolerated 5. Await paracentesis cytology results also CHEMA REYES MD Aug 01, 2024 17:20
[2024-08-02 01:00] VITALS: BP 135/70; PULSE 71; RESP 14; TEMP 98.7; O2SAT 93
[2024-08-02 05:00] VITALS: BP 127/82; PULSE 102; RESP 14; TEMP 97.8; O2SAT 95
[2024-08-02] MEDS: POTASSIUM CHL 20 Meq TABLET PO ONE (07:20)
[2024-08-02 07:26] LABS: Alanine Aminotransferase 11 U/L (7-40); Albumin 3.5 g/dL (3.2-4.8); Alkaline Phosphatase 94 U/L (46-116); Anion Gap 12 (5-15); Aspartate Aminotransferase 26 U/L (13-40); Calcium 8.8 mg/dL (8.7-10.4); Carbon Dioxide 25 mmol/L (20-31); Chloride 102 mmol/L (98-107); Glucose 106 mg/dL (74-106); Sodium 139 mmol/L (136-145); Total Protein 6.4 g/dL (5.7-8.2)
[2024-08-02 07:32] LABS: Bilirubin, Total 1.8 mg/dL (0.2-1.0); Blood Urea Nitrogen 8 mg/dL (9-23)
[2024-08-02 07:50] VITALS: PULSE 98; RESP 18; O2SAT 95
[2024-08-02 08:43] VITALS: BP 136/82; PULSE 98; RESP 17; TEMP 97.7; O2SAT 99
[2024-08-02] MEDS ORDERED: PANT40TA2 PO (08:53)
[2024-08-02] MEDS ORDERED: SUCR1TAB PO (08:53)
--- NOTE | 2024-08-02 12:03 | DVHDSRES ---
Discharge Summary Date of Admission Resident Creating Document: GONZALEZ SouravPRADIP RESIDENT Jul 31, 2024 at 01:26 Date of Discharge: Aug 02, 2024 Admitting Diagnosis #10 cm superficially spreading ulcerated gastric mass on the greater curvature side extending from the proximal stomach and cardia area up to the midbody of the stomach Labs/Diagnostic Data: Laboratory Results Test 08/02/24 10:20 08/02/24 05:54 08/01/24 11:00 08/01/24 05:00 Potassium Level 3.7 mmol/L (3.5-5.1) Sodium Level 139 mmol/L (136-145) Chloride Level 102 mmol/L (98-107) Carbon Dioxide Level 25 mmol/L (20-31) Anion Gap 12 (5-15) Blood Urea Nitrogen 8 mg/dL (9-23) Creatinine 0.47 mg/dL (0.550-1.02) Glomerular Filtration Rate Calc 110 mL/min (>90) BUN/Creatinine Ratio 17.0 (10.0-20.0) Serum Glucose 106 mg/dL (74-106) Calcium Level 8.8 mg/dL (8.7-10.4) Total Bilirubin 1.8 mg/dL (0.2-1.0) Aspartate Amino Transferase (AST) 26 U/L (13-40) Alanine Aminotransferase (ALT) 11 U/L (7-40) Alkaline Phosphatase 94 U/L (46-116) Total Protein 6.4 g/dL (5.7-8.2) Albumin 3.5 g/dL (3.2-4.8) Body Fluid Source Ascites Body Fluid pH 8.0 Body Fluid WBC (Manual) 2899 CUMM (0-200) Body Fluid RBC (Manual) 2685 CUMM (0-2000) Body Fluid Mononuclear Cells 85 % Body Fluid Polymorphonuclear Cells 15 % (0-25) White Blood Count 9.8 10^3/uL (4.4-10.8) Red Blood Count 5.25 10^6/uL (4.0-5.20) Hemoglobin 15.5 g/dL (12.2-16.2) Hematocrit 43.9 % (36.0-46.0) Mean Corpuscular Volume 83.7 fL (80.0-100.0) Mean Corpuscular Hemoglobin 29.5 pg (28.0-32.0) Mean Corpuscular Hemoglobin Concent 35.3 g/dL (32.0-36.0) Red Cell Distribution Width 13.3 % (11.8-14.3) Platelet Count 362 10^3/uL (140-450) Mean Platelet Volume 8.9 fL (6.9-10.8) Neutrophils (%) (Auto) 65.1 % (37.0-80.0) Lymphocytes (%) (Auto) 19.1 % (10.0-50.0) Monocytes (%) (Auto) 8.6 % (0.0-12.0) Eosinophils (%) (Auto) 6.2 % (0.0-7.0) Basophils (%) (Auto) 1.0 % (0.0-2.0) Neutrophils # (Auto) 6.4 10 ^3/uL (1.6-8.6) Lymphocytes # (Auto) 1.9 10 ^3/uL (0.4-5.4) Monocytes # (Auto) 0.8 10 ^3/uL (0-1.3) Eosinophils # (Auto) 0.6 10 ^3/uL (0-0.8) Basophils # (Auto) 0.1 10 ^3/uL (0-0.2) Nucleated Red Blood Cells 0.1 % Test 07/31/24 20:40 07/31/24 11:35 07/31/24 06:26 07/30/24 21:23 Stool Occult Blood Negative (Negative) Stool Occult Blood Sample #3 (Negative) B-Type Natriuretic Peptide 4.96 pg/mL (0-100) Prothrombin Time 12.8 sec (9.3-11.8) Prothrombin Time INR 1.23 (0.9-1.15) Activated Partial Thromboplast Time 28.0 SEC (24.5-34.5) Troponin I High Sensitivity 3 ng/L (</=34) Hepatitis A IgM Antibody Negative Hepatitis B Surface Antigen Negative (Negative) Hepatitis B Core IgM Antibody Negative (Negative) Hepatitis C Antibody Negative (Negative) Lactic Acid Level 1.2 mmol/L (0.4-2.0) Lipase 48 U/L (12-53) Test 07/30/24 21:00 07/30/24 20:52 Urine Color Yellow (Yellow) Urine Clarity Clear (Clear) Urine pH 6.0 (5.0-9.0) Urine Specific [place] 1.015 (1.001-1.035) Urine Protein Trace (Negative) Urine Ketones Trace (Negative) Urine Blood Negative /uL (Negative) Urine Nitrite Negative (Negative) Urine Bilirubin Negative (Negative) Urine Urobilinogen Normal mg/dL (Negative) Urine Leukocyte Esterase 2+ /uL (Negative) Urine RBC 1 /hpf (0 - 4) Urine Microscopic WBC 8 /HPF (0-5) Urine Squamous Epithelial Cells Few /hpf (<5) Urine Bacteria None seen /hpf (None Seen) Urine Mucus Few (None Seen) Urine Glucose Normal mg/dL (Normal) POC Glucose 133 mg/dl (70-106) Other Laboratory Tests 08/02/24 10:20 08/02/24 05:54 08/01/24 05:00 Brief Hx & Hospital Course: The patient is a 58-year-old female who presented with progressive abdominal pain and distension. Imaging revealed diffuse wall thickening of the stomach and ascites. She had been recently hospitalized at the end of May 2024 for a similar complaint, during which time imaging showed thickened gastric [place] and a contained perforation. She was managed medically with Carafate and Protonix and discharged. She continued to have symptoms and re-presented in early July. Repeat CT scan on 07/31/24 showed diffuse gastric wall thickening and moderate ascites. EGD performed on 08/01/24 revealed a 10 cm superficially spreading ulcerated gastric mass along the greater curvature. Biopsies were taken to rule out malignancy. Paracentesis yielded 3.6 L of clear ascitic fluid. Other relevant findings included a 2 mm benign-appearing gastric antral nodule, constipation, and mildly elevated bilirubin. She also has known hypertensive heart disease with preserved EF (55%) and LVH on echocardiogram. She was managed conservatively with IV Protonix, PO Carafate, furosemide, spironolactone, and supportive care. She tolerated the hospital course well and was discharged in stable condition. Discharge Medications: Pantoprazole 40 mg IV daily Sucralfate 1 gm PO QID Follow-Up: Discharge clinic: August 14, 2024 GI clinic: To follow up on biopsy results Condition on Discharge: Stable Disposition: Home Case discussed with Dr Padilla Full code Consults/Reason for consult GI due to gastric ulcer Operations or Procedures DATE OF OPERATION: 08/01/24 PROCEDURE: Upper Endoscopy with biopsy. PREOPERATIVE INDICATION: The patient is a 58 -year-old female undergoing endoscopy for abdominal pain distention and abnormal finding GI tract imaging POSTOPERATIVE DIAGNOSES: 1. Patient had a large 10 cm superficially spreading ulcerated gastric mass on the greater curvature side extending from the proximal stomach and cardia area up to the midbody of the stomach from which biopsies were obtained 2. There was a 2 mm benign-appearing gastric antral nodule that was also seen and removed by cold biopsy forceps 3. Otherwise normal examination up to the 2nd and 3rd part of the duodenum with no active bleeding and good bile drainage PROCEDURE PERFORMED BY: Imelda Reyes GI NURSE: Tressa SCOPE: Olympus videoendoscope. ASA CLASS: 3. PREOPERATIVE MEDICATIONS: Versed 3 mg, Fentanyl 50 mcg, Benadryl 50 mg I administered moderate sedation throughout this _10_ minutes procedure. An independent trained observer pushed medications at my direction, and monitored the patient's level of consciousness and physiological status throughout. PROCEDURE IN DETAIL: After obtaining an informed consent, the patient was placed on left lateral decubitus position. The patient was then sedated with the above medications. A bite block was placed between her teeth. The endoscope was then passed through the oropharynx, into the esophagus, and through the stomach and pylorus up to the second and third part of the duodenum. The endoscope was then withdrawn. The 2nd and 3rd part of the duodenum and the duodenal bulb were normal except for mild duodenitis The pre-pyloric area antrum showed mild gastritis. There was a 2-3 mm superficial antral nodule that was removed by cold biopsy forceps On retroflexion and straight on view the patient had a large superficially spreading ulcerated mass extending from the proximal stomach into the midbody of the stomach about 10-12 cm in size This was mostly on the greater curvature of the stomach and multiple biopsies were obtained. On retroflexion otherwise the cardia and GE junction were normal. The endoscope was then withdrawn into distal esophagus where the patient had no evidence of a hiatal hernia and no significant esophagitis The remaining distal and proximal esophagus and oropharynx were unremarkable The patient tolerated the procedure well without difficulty. COMPLICATIONS : None SPECIMENS: 1. Duodenal biopsy 2. Gastric antral nodule biopsy 3. Gastric mass biopsies DISPOSITION: Transfer back to the floor Stable PLAN: 1. Await for biopsy result 2. Will place pt on Protonix 40 mg bid IV 3. Carafate 1 g p.o. 4 times a day 4. Clear liquid diet advance to full liquid if tolerated 5. Await paracentesis cytology results also Condition at Discharge: Stable Final Diagnosis/Problems List #10 cm superficially spreading ulcerated gastric mass on the greater curvature side extending from the proximal stomach and cardia area up to the midbody of the stomach #2 mm benign-appearing gastric antral nodule #Rule out stomach cancer #sp paracentesis #Malignant ascites #Intractable abdominal pain #Constipation #diffuse wall thickening of the stomach #Hyperbillirubinemia Discharge Disposition: Home Discharge Instruct/Medications Diet: Consistent carbohydrate, Cardiac 2g Na,low cholest Activity: No Restrictions, As Tolerated Follow Up/Referral: please fu Dr [facility]ht[facility] august 14 Medications: see prescription Discharge Statement: "Patient was advised to return to the ER or call 911 if any headaches, dizziness, shortness of breath, chest pain, abdominal pain, bleeding, fevers, or worsening of medical condition. Patient was counseled about treatment plan, medications, possible side effects, patientverbalized understanding. All questions were answered to the best of my ability. This discharge took greater then 30 minutes in planning, reviewing documentation, counseling the patient, and discussing with other team members." ASSESSMENT ASSESSMENT Assessment gastric ulcer rule out cancer Date of Service: Aug 02, 2024 Billing Provider: MATTIE PADILLA MD Common Visit Codes: 96151-YWI/OBS DISCH DAY >30min PRADIP RICO RESIDENT Aug 02, 2024 12:03 MATTIE PADILLA MD Aug 07, 2024 14:45
[2024-08-02 12:34] VITALS: BP 136/86; PULSE 105; RESP 18; TEMP 98.1; O2SAT 97
[2024-08-02 13:08] LABS: Protein, Body Fluid 4.8 g/dL (.)
[2024-08-02 13:25] VITALS: BP 136/82; PULSE 98; RESP 16; TEMP 36.7; O2SAT 98
--- NOTE | 2024-08-02 23:28 | DVHPN2 ---
Progress Note - Dictate Date Seen: Aug 02, 2024 (Time of visit 12 noon late entry) Has the PT tested + for MRSA If YES, has PT been informed?: No Medical Necessity Reason Pt with a Central, PICC or Fol: No Subjective No new complaints Tolerating diet No nausea vomiting EGD showed a large gastric mass awaiting biopsy results vital signs Vital Sign Date Time Temp Pulse Resp B/P (MAP) Pulse Ox O2 Delivery O2 Flow Rate FiO2 08/02/24 13:25 36.7 98 16 98 08/02/24 12:34 136/86 (103) 08/02/24 07:50 Room Air* 0 21 Total Intake and Output 08/01/24 08/01/24 08/02/24 15:00 23:00 07:00 Intake Total 700 ml Balance 700 ml objective General: NAD, AAOX3 Chest: lung doss clear to auscultation Heart: RRR, no murmur Abdomen: [id number], no tenderness to palpation, +BS laboratory and microbiology Laboratory Tests 08/02/24 10:20 08/02/24 05:54 08/01/24 05:00 Test 08/02/24 05:54 Range/Units Serum Glucose 106 74-106 mg/dL Problems(with codes): (1) Gastric mass (2) Abdominal ascites (3) Intractable abdominal pain Prognosis PLAN: 1. Await for biopsy result 2. Will place pt on Protonix 40 mg bid po 3. Carafate 1 g p.o. 4 times a day 4. Advance to full liquid if tolerated 5. Await paracentesis cytology results also 6. Discharge planning is in progress, patient to follow up in [facility] and follow up in my office in 2-4 weeks to review results Plan discussed with: Patient CHEMA MULLER MD Aug 02, 2024 23:28
== END 2024-08-02 15:30 | disposition home or self-care (01) | DRG 240 ==
LOC: ER 20:38 → OVERFLOW 07-31 01:26 → WEST WING 07-31 05:30
PROVIDERS: ADMIT Student in an Organized Health Care Education/Training Program; ATTEND Student in an Organized Health Care Education/Training Program
PROC: 0DB78ZX Excision of Stomach, Pylorus, Via Natural or Artificial Opening Endoscopic, Diagnostic (ICD-10-PCS; 2024-08-01)
PROC: 0DB68ZX Excision of Stomach, Via Natural or Artificial Opening Endoscopic, Diagnostic (ICD-10-PCS; 2024-08-01)
PROC: 0W9G3ZZ Drainage of Peritoneal Cavity, Percutaneous Approach (ICD-10-PCS; 2024-08-01)
PROC: 0DB98ZX Excision of Duodenum, Via Natural or Artificial Opening Endoscopic, Diagnostic (ICD-10-PCS; principal; 2024-08-01 16:57)
DX: C16.2 Malignant neoplasm of body of stomach (principal); K25.5 Chronic or unspecified gastric ulcer with perforation; R18.0 Malignant ascites; I11.9 Hypertensive heart disease without heart failure; I50.32 Chronic diastolic (congestive) heart failure; K29.70 Gastritis, unspecified, without bleeding; E11.9 Type 2 diabetes mellitus without complications; K29.80 Duodenitis without bleeding; K74.60 Unspecified cirrhosis of liver; K31.9 Disease of stomach and duodenum, unspecified; Z90.710 Acquired absence of both cervix and uterus; Z90.49 Acquired absence of other specified parts of digestive tract
CPT/HCPCS: 36415; 43239; 49083; 71045; 74176; 74177; 76705; 76942; 80053; 80074; 81001; 82270; 82962; 83605; 83690; 83880; 83986; 84132; 84484; 85025; 85610; 85730; 87040; 87086; 87205; 89051; 93005; 93306; G0378; J2250; J2405; J2470; Q9967

== ENCOUNTER 2024-09-03 13:35 | Inpatient (IN) | payer MEDICAID ==
[~2024-09-03] VITALS: Ht 142.2 cm; Wt 56.9 kg
[~2024-09-03 13:35] MED LIST changes: -SUCR1SUS26 PO; +SUCR1TAB PO
--- NOTE | 2024-09-03 13:55 | ED.PDOC ---
GI ASSESSMENT HPI Comments 58 y.o female with PMHx of gastric cancer, Liver cirrhosis, gallstones, and DM, presents to the ED for a chief complaint of abdominal pain associated with distention. Patient reports pain is localized to bilateral upper quadrants, described as sharp and rating a 8/10 on the pain scale. Patient reports last paracentesis was on July 29, 2024 and was diagnosed with gastric cancer on July. Patient denies any vomiting, diarrhea, fever, chills, bloody stool. Time Seen by MD: 13:46 Primary Care Provider: non Reviewed Notes: Nurses Notes, Medications, Allergies Allergies: Coded Allergies: NO KNOWN ALLERGIES (Unverified , 03/20/21) Home Meds Active Scripts Sucralfate (Sucralfate) 1 Gm Tab, 1 GM PO BID for 90 Days, #180 TAB Prov:PRADIP RICO 08/02/24 Pantoprazole Sodium Sesquihydr (Protonix) 40 Mg Tab, 40 MG PO DAILY for 90 Days, #90 TAB Prov:PRADIP RICO 08/02/24 Metformin Hydrochloride (METFORMIN HCL ER) 500 Mg Tab, 1 TAB PO BID, #90 TAB 1 Refill Prov:VAIBHAV CARSON MD 06/23/24 Information Source: Patient Mode of Arrival: Ambulatory Timing: Days Duration: Since onset Quality: Aching Vomitus: None Stool: Normal Severity: Moderate Recent: None Recent Hx of: None Pain Location: Diffuse Modifying Factors: Nothing Associated sign and symptoms: Nausea, Abdominal Pain Past Medical History PAST MEDICAL HISTORY: Cancer, DM, Gallstones, HTN, Liver Surgical History: BTL, Cholecystectomy, Hysterectomy RECOVERY COACH History: No Pertinent RECOVERY COACH History, Unknown Family History Family History: Reviewed,noncontributory to illness Social History Smoker: Non-Smoker Alcohol: Occasionally Drugs: Denies Drug Use Lives In: Home Constitutional: denies: chills, diaphoresis, fatigue, fever, malaise, sweats, weakness, others EENTM: denies: blurred vision, double vision, ear bleeding, ear discharge, ear drainage, ear pain, ear ringing, eye pain, eye redness, hearing loss, mouth pain, mouth swelling, nasal discharge, nose bleeding, nose congestion, nose pain, photophobia, tearing, throat pain, throat swelling, voice changes, others Respiratory: denies: cough, hemoptysis, orthopnea, SOB at rest, shortness of breath, SOB with excertion, stridor, wheezing, others Cardiovascular: denies: chest pain, dizzy spells, diaphoresis, Dyspnea on exertion, edema, irregular heart beat, left arm pain, lightheadedness, palpitations, PND, syncope, others Gastrointestinal: reports: abdomen distended, abdominal pain, nausea; denies: blood streaked bowels, constipated, diarrhea, dysphagia, difficulty swallowing, hematemesis, melena, poor appetite, poor fluid intake, rectal bleeding, rectal pain, vomiting, others Genitourinary: denies: abnormal vagina bleeding, burning, dyspareunia, dysuria, flank pain, frequency, hematuria, incontinence, pain, , vagina discharge, urgency, others Neurological: denies: dizziness, fainting, headache, left sided numbness, left sided weakness, numbness, paresthesia, pre-existing deficit, right sided numbness, right sided weakness, seizure, speech problems, tingling, tremors, weakness, others Musculoskeletal: denies: back pain, gout, joint pain, joint swelling, muscle pain, muscle stiffness, neck pain, others Integumetry: denies: bruises, change in color, change in hair/nails, dryness, laceration, lesions, lumps, rash, wounds, others Allergic/Immunocompromised: denies: Difficulty Healing, Frequent Infections, Hives, Itching, others Hematologic/Lymphatic: denies: anemia, blood clots, easy bleeding, easy bruising, swollen glands, others Endocrine: denies: excessive hunger, excessive sweating, excessive thirst, excessive urination, flushing, intolerance to cold, intolerance to heat, unexplained weight gain, unexplained weight loss, others Psychiatric: denies: anxiety, bipolar disorder, depression, hopeless, panic disorder, schizophrenia, sleepless, suicidal, others All Other Systems: Reviewed and Negative Physical Exam General Appearance: Moderate Distress, Obese HEENT: Normal ENT Inspection, Pharynx Normal, TMs Normal Neck: Full Range of Motion, Non-Tender, Normal, Normal Inspection Respiratory: Chest Non-Tender, Lungs Clear, No Accessory Muscle Use, No Respiratory Distress, Normal Breath Sounds Cardiovascular: No Edema, No JVD, No Murmur, No Gallop, Normal Peripheral Pulses, Regular Rate/Rhythm Breast Exam: Deferred Gastrointestinal: Distended, Hepatomegaly, No Pulsatile Mass, Tenderness Genitalia: Deferred Pelvic: Deferred Rectal: Deferred Extremities: No calf tenderness, Normal capillary refill, Normal inspection, Normal range of motion, Non-tender, No pedal edema Musculoskeletal : Apperance: Normal Neurologic: Alert, 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 Was a procedure done?: No GI differential Dx Differential Diagnosis: Gastroenteritis, Inflammatory BD, Pancreatitis X-Ray, Labs, Meds, VS Vital Signs Date Time Temp Pulse Resp B/P (MAP) Pulse Ox O2 Delivery O2 Flow Rate FiO2 09/03/24 15:26 98.0 117 18 133/87 (102) 95 98.0 09/03/24 14:00 98.7 120 18 136/98 (111) 94 98.7 Lab Test 09/03/24 14:28 Range/Units White Blood Count 8.5 4.4-10.8 10^3/uL Red Blood Count 5.25 H 4.0-5.20 10^6/uL Hemoglobin 15.3 12.2-16.2 g/dL Hematocrit 43.5 36.0-46.0 % Mean Corpuscular Volume 82.8 80.0-100.0 fL Mean Corpuscular Hemoglobin 29.1 28.0-32.0 pg Mean Corpuscular Hemoglobin Concent 35.1 32.0-36.0 g/dL Red Cell Distribution Width 14.6 H 11.8-14.3 % Platelet Count 380 140-450 10^3/uL Mean Platelet Volume 8.4 6.9-10.8 fL Neutrophils (%) (Auto) 62.7 37.0-80.0 % Lymphocytes (%) (Auto) 20.1 10.0-50.0 % Monocytes (%) (Auto) 8.0 0.0-12.0 % Eosinophils (%) (Auto) 8.3 H 0.0-7.0 % Basophils (%) (Auto) 0.9 0.0-2.0 % Neutrophils # (Auto) 5.3 1.6-8.6 10 ^3/uL Lymphocytes # (Auto) 1.7 0.4-5.4 10 ^3/uL Monocytes # (Auto) 0.7 0-1.3 10 ^3/uL Eosinophils # (Auto) 0.7 0-0.8 10 ^3/uL Basophils # (Auto) 0.1 0-0.2 10 ^3/uL Nucleated Red Blood Cells 0.2 % Prothrombin Time 12.6 H 9.3-11.8 sec Prothrombin Time INR 1.21 H 0.9-1.15 Activated Partial Thromboplast Time 27.2 24.5-34.5 SEC Sodium Level 139 136-145 mmol/L Potassium Level 3.7 3.5-5.1 mmol/L Chloride Level 105 98-107 mmol/L Carbon Dioxide Level 24 20-31 mmol/L Anion Gap 10 5-15 Blood Urea Nitrogen < 5 L 9-23 mg/dL Creatinine 0.54 L 0.550-1.02 mg/dL Glomerular Filtration Rate Calc 106 >90 mL/min BUN/Creatinine Ratio 9.3 L 10.0-20.0 Serum Glucose 165 H 74-106 mg/dL Calcium Level 9.1 8.7-10.4 mg/dL Total Bilirubin 0.6 0.2-1.0 mg/dL Aspartate Amino Transferase (AST) 35 13-40 U/L Alanine Aminotransferase (ALT) 12 7-40 U/L Alkaline Phosphatase 97 46-116 U/L Total Protein 7.1 5.7-8.2 g/dL Albumin 3.6 3.2-4.8 g/dL Ultrasound of the abdomen shows: Findings /impression: Large volume ascites is noted in all 4 abdominal quadrants. The patient's CBC is within normal limits The chemistry panel is within normal limits The INR is 1.21 IV Hep-Lock was established The patient is being admitted to the hospitalist Images Reviewed?: Images reviewed and evaluated by me Time of 1ST Reevaluation: 13:52 Reevaluation 1ST: Unchanged Patient Education/Counseling: Diagnosis, Treatment, Prognosis Family Education/Counseling: No Family Present SEPSIS Sepsis Screen Physician Orders Heplock Iv (09/03/24 13:49) Paracentesis (09/03/24 13:49) Paracentesis (09/03/24 13:49) Abdomen Limited (09/03/24 ) Vital Signs Date Time Temp Pulse Resp B/P (MAP) Pulse Ox O2 Delivery O2 Flow Rate FiO2 7/7/25 15:26 98.0 117 18 133/87 (102) 95 98.0 09/03/24 14:00 98.7 120 18 136/98 (111) 94 98.7 Laboratory Tests Test 09/03/24 14:28 White Blood Count 8.5 10^3/uL (4.4-10.8) Departure 1 Departure Time of Disposition: 15:31 Impression: Primary Impression: Abdominal ascites Qualified Codes: R18.0 - Malignant ascites Additional Impression: Intractable abdominal pain Disposition: ADMITTED INPATIENT Admit to: Med Surg Condition: Other Critical Care Note Critical Care Time?: No Stability Stability form required: Yes Unstable for transfer: ED Physician Assesment (Clinical assesment) I personally scribed for IMAN PASTRANA MD ([email or web address]) on 09/03/24 at 13:55. Electronically submitted by Trudi Goodwin ([facility]). IMAN PASTRANA MD Sep 03, 2024 13:55
--- NOTE | 2024-09-03 14:30 | DVH ---
Procedure: US ABDOMEN LIMITED Study Date and Requested Time: 09/03/2024 02:08 PM History: EVAL FOR ASCITES Comparison: US ABDOMEN LIMITED on DOS: 07/31/24 Technique: Multiple high resolution pressley-scale images obtained of the abdominal quadrant to evaluate for ascites Findings /impression: Large volume ascites is noted in all 4 abdominal quadrants.
[2024-09-03 15:02] LABS: Hematocrit 43.5 % (36.0-46.0); Hemoglobin 15.3 g/dL (12.2-16.2); Mean Corpuscular Hemoglobin 29.1 pg (28.0-32.0); Mean Corpuscular Volume 82.8 fL (80.0-100.0); Nucleated Red Blood Cells % 0.2 %
[2024-09-03 15:09] LABS: INR 1.21 (0.9-1.15); Partial Thromboplastin Time 27.2 SEC (24.5-34.5); Prothrombin Time 12.6 sec (9.3-11.8)
[2024-09-03 15:11] LABS: Alanine Aminotransferase 12 U/L (7-40); Albumin 3.6 g/dL (3.2-4.8); Alkaline Phosphatase 97 U/L (46-116); Anion Gap 10 (5-15); BUN/Creatinine Ratio 9.3 (10.0-20.0); Bilirubin, Total 0.6 mg/dL (0.2-1.0); Blood Urea Nitrogen < 5 mg/dL (9-23); Calcium 9.1 mg/dL (8.7-10.4); Carbon Dioxide 24 mmol/L (20-31); Chloride 105 mmol/L (98-107); Glucose 165 mg/dL (74-106); Potassium 3.7 mmol/L (3.5-5.1); Sodium 139 mmol/L (136-145); Total Protein 7.1 g/dL (5.7-8.2)
[2024-09-03 19:13] LABS: Urine Amorphous Crystal MANY /hpf (None Seen); Urine Protein, UAD 1+ (Negative)
[2024-09-03] MEDS ORDERED: ONDANSETRON HCL 4 MG/2 ML VIAL IV PRN (20:00)
[2024-09-03] MEDS ORDERED: ACETAMINOPHEN 325 MG TAB PO PRN (20:00)
[2024-09-03] MEDS ORDERED: DEXTROSE (50%) 50ML SYRG IV PRN (20:00)
--- NOTE | 2024-09-03 23:15 | DVHHP2 ---
History of Present Illness Reason for Visit: Abdominal distention History of Present Illness 58-year-old female presents for evaluation of abdominal distention. Patient with newly diagnosed gastric carcinoma and liver cirrhosis presents for evaluation of worsening abdominal distention. Patient reports feeling a lot of pressure in her abdomen over the past three days. Denies fever or chills. She reports having a follow up appointment with Oncology at [facility] on the of this month. Past Medical History Liver cirrhosis, hypertension, gastric carcinoma, diabetes mellitus Past Surgical History Hysterectomy, cholecystectomy, BTL Family History Noncontributory Smoke: No ALCOHOL: occassional Drugs: None Lives: with Family Review of Systems Review of Systems Review of systems are currently negative otherwise addressed in HPI. Allergies: Coded Allergies: NO KNOWN ALLERGIES (Unverified , 03/20/21) Medications Current Medications Medications Dose Ordered Sig/Blanka Route Start Time Stop Time Status Last Admin Dose Admin Pantoprazole Sodium 40 mg DAILY@0600 PO 09/04/24 06:00 Diagnostic Test (Pha) 1 strip ACHS 09/03/24 22:00 Insulin Human Regular ACHS SC 09/03/24 22:00 Dextrose 50 ml UD PRN IV 09/03/24 20:00 Acetaminophen/ Hydrocodone Bitart 1 tab Q4HP PRN PO 09/03/24 20:00 Ondansetron HCl 4 mg Q4HP PRN IV 09/03/24 20:00 Acetaminophen 650 mg Q6HP PRN PO 09/03/24 20:00 Exam Vital Signs Vital Signs Date Time Temp Pulse Resp B/P (MAP) Pulse Ox O2 Delivery O2 Flow Rate FiO2 09/03/24 20:17 97.9 125 14 145/94 (111) 96 97.9 Exam Gen: 58-year-old female in mild distress Skin: Warm, dry, normal color and texture, no rash. HEENT: Normocephalic atraumatic, mucous membranes moist and pink. Neck: Cervical and supraclavicular nodes normal without enlargement, trachea is midline, thyroid gland is normal without masses. Pulmonary: Clear to auscultation and percussion bilaterally. Cardiac: Regular rate and rhythm. No murmur Abdomen: Soft, nontender, distended with ascites, bowel sounds present all 4 quadrants, no guarding, no rigidity, no organomegaly. Extremities: No cyanosis, clubbing, no edema Neuro: Cranial nerves II through XII grossly intact, normal affect and speech, no focal motor deficits. Labs/Xrays ORDERING PHYSICIAN: IMAN PASTRANA MD PROCEDURE(s): ABDL - ABDOMEN LIMITED REASON: EVAL FOR ASCITES ORDER NUMBER(s): [id number], ACCESSION NUMBER(s): [id number] Procedure: US ABDOMEN LIMITED Study Date and Requested Time: 09/03/2024 02:08 PM History: EVAL FOR ASCITES Comparison: US ABDOMEN LIMITED on DOS: 07/31/24 Technique: Multiple high resolution pressley-scale images obtained of the abdominal quadrant to evaluate for ascites Findings /impression: Large volume ascites is noted in all 4 abdominal quadrants. Labs Test 09/03/24 14:28 09/03/24 14:00 Range/Units White Blood Count 8.5 4.4-10.8 10^3/uL Red Blood Count 5.25 H 4.0-5.20 10^6/uL Hemoglobin 15.3 12.2-16.2 g/dL Hematocrit 43.5 36.0-46.0 % Mean Corpuscular Volume 82.8 80.0-100.0 fL Mean Corpuscular Hemoglobin 29.1 28.0-32.0 pg Mean Corpuscular Hemoglobin Concent 35.1 32.0-36.0 g/dL Red Cell Distribution Width 14.6 H 11.8-14.3 % Platelet Count 380 140-450 10^3/uL Mean Platelet Volume 8.4 6.9-10.8 fL Neutrophils (%) (Auto) 62.7 37.0-80.0 % Lymphocytes (%) (Auto) 20.1 10.0-50.0 % Monocytes (%) (Auto) 8.0 0.0-12.0 % Eosinophils (%) (Auto) 8.3 H 0.0-7.0 % Basophils (%) (Auto) 0.9 0.0-2.0 % Neutrophils # (Auto) 5.3 1.6-8.6 10 ^3/uL Lymphocytes # (Auto) 1.7 0.4-5.4 10 ^3/uL Monocytes # (Auto) 0.7 0-1.3 10 ^3/uL Eosinophils # (Auto) 0.7 0-0.8 10 ^3/uL Basophils # (Auto) 0.1 0-0.2 10 ^3/uL Nucleated Red Blood Cells 0.2 % Prothrombin Time 12.6 H 9.3-11.8 sec Prothrombin Time INR 1.21 H 0.9-1.15 Activated Partial Thromboplast Time 27.2 24.5-34.5 SEC Sodium Level 139 136-145 mmol/L Potassium Level 3.7 3.5-5.1 mmol/L Chloride Level 105 98-107 mmol/L Carbon Dioxide Level 24 20-31 mmol/L Anion Gap 10 5-15 Blood Urea Nitrogen < 5 L 9-23 mg/dL Creatinine 0.54 L 0.550-1.02 mg/dL Glomerular Filtration Rate Calc 106 >90 mL/min BUN/Creatinine Ratio 9.3 L 10.0-20.0 Serum Glucose 165 H 74-106 mg/dL Calcium Level 9.1 8.7-10.4 mg/dL Total Bilirubin 0.6 0.2-1.0 mg/dL Aspartate Amino Transferase (AST) 35 13-40 U/L Alanine Aminotransferase (ALT) 12 7-40 U/L Alkaline Phosphatase 97 46-116 U/L Total Protein 7.1 5.7-8.2 g/dL Albumin 3.6 3.2-4.8 g/dL Urine Color Dark-brown Yellow Urine Clarity Ex.turbid Clear Urine pH 6.0 5.0-9.0 Urine Specific [place] 1.026 1.001-1.035 Urine Protein 1+ H Negative Urine Ketones Negative Negative Urine Blood Negative Negative /uL Urine Nitrite Negative Negative Urine Bilirubin Negative Negative Urine Urobilinogen Normal Negative mg/dL Urine Leukocyte Esterase Negative Negative /uL Urine RBC None seen 0 - 4 /hpf Urine Microscopic WBC 0-5 /HPF Urine Squamous Epithelial Cells None seen <5 /hpf Urine Amorphous Crystals Many None Seen /hpf Urine Bacteria None seen None Seen /hpf Urine Mucus Few None Seen Urine Glucose Trace Normal mg/dL Assessment/Plan Assessment/Plan Assessment Abdominal distention with ascites Diabetes mellitus Gastric carcinoma Plan Admit the patient to [facility] to the hospitalist Radiology consult Resume home medications Continue treatment per orders. Plan discussed with: Patient My Orders Orders - BASSAM OROZCO Procedure Category Date Status Time Admit ADMIT 09/03/24 Transmitted 19:17 * Radiologist Consult CONS 09/03/24 Transmitted 19:55 Consistent DIET 09/04/24 Transmitted Carb(Ccho)Diabetes Breakfast Pantoprazole Tablet PHA 09/04/24 In Process (Protonix Tablet) 06:00 Basic Metabolic Panel LAB 09/04/24 Verified 04:00 Glucose Blood PHA 09/03/24 In Process (Accu-Chek Comfort 22:00 Insulin R (Human) PHA 09/03/24 In Process (Insulin R) 22:00 Dextrose 50% Syringe PHA 09/03/24 In Process 20:00 Hydrocodone-Acet PHA 09/03/24 In Process 5/325mg Tab ([place] 20:00 Ondansetron Hcl PHA 09/03/24 In Process (Zofran) 20:00 Complete Blood Count LAB 09/04/24 Verified 04:00 Condition: Stable EVITA 09/03/24 In Process 19:55 Acetaminophen Tablet PHA 09/03/24 In Process (Tylenol Tablet) 20:00 Maintain Bed Rest EVITA 09/03/24 In Process 19:55 Date of Service: Sep 03, 2024 Billing Provider: BASSAM OROZCO Common Visit Codes: [id number] INP/OBS CARE (MOD) BASSAM OROZCO Sep 03, 2024 23:15
[2024-09-04 01:00] VITALS: BP 140/85; PULSE 110; RESP 16; TEMP 98
[2024-09-04] MEDS: ACCU-CHEK COMFORT CURVE STRIP VI SCH (01:47)
[2024-09-04] MEDS: InsuLIN REG 1unit/0.01ml Soln (100units/ml) SC SCH (01:58)
[2024-09-04 05:00] VITALS: BP 133/77; PULSE 105; RESP 16; TEMP 98.4; O2SAT 94
[2024-09-04 06:40] LABS: Hematocrit 40.0 % (36.0-46.0); Hemoglobin 14.0 g/dL (12.2-16.2); Mean Corpuscular Hemoglobin 28.6 pg (28.0-32.0); Mean Corpuscular Volume 82.0 fL (80.0-100.0); Nucleated Red Blood Cells % 0.2 %
[2024-09-04 06:55] LABS: Anion Gap 11 (5-15); Carbon Dioxide 24 mmol/L (20-31); Chloride 105 mmol/L (98-107); Potassium 3.6 mmol/L (3.5-5.1); Sodium 140 mmol/L (136-145)
[2024-09-04 06:56] LABS: Calcium 8.9 mg/dL (8.7-10.4)
[2024-09-04 07:01] LABS: BUN/Creatinine Ratio 17.9 (10.0-20.0); Blood Urea Nitrogen 7 mg/dL (9-23); Glucose 105 mg/dL (74-106)
[2024-09-04] MEDS: PANTOPRAZOLE 40 MG TAB PO SCH (07:03)
--- NOTE | 2024-09-04 09:18 | DVH ---
US PARACENTESIS, HISTORY: pain PROCEDURE: Informed consent was obtained. The patient was placed in supine position. A limited locali zation ultrasound of the abdomen was obtained, and the skin site over the largest pocket of fluid was marked and entry site was prepped with chlorhexidine which was allowed to dry and draped in the usua l sterile fashion. Time out was performed. Following administration of 1% lidocaine local anesthetic, a 5 Mongolian centesis needle catheter was percutaneously inserted into the peritoneal collection until fluid was aspirated. The catheter was advanced into the fluid collection and the needle removed. Abo ut 4600 cc of fluid was aspirated and specimen sent for appropriate cultures/cytology/cultures and cy tology. The catheter was then removed and a sterile dressing applied. No immediate complication was identified. FINDINGS: Limited ultrasound imaging demonstrates moderate ascites. Aspirated fluid was clear and ser ous. IMPRESSION: US-guided paracentesis with 4.3L removed.
--- NOTE | 2024-09-04 14:41 | DVHPN2 ---
Reviewed: Care Plan, H&P, Labs, Medications, Previous Orders, Radiology Objective Vitals Vital Signs Date Time Temp Pulse Resp B/P (MAP) Pulse Ox O2 Delivery O2 Flow Rate FiO2 09/04/24 05:00 98.4 105 16 133/77 (95) 94 98.4 Medications Current Medications Medications Dose Ordered Sig/Blanka Route Start Time Stop Time Status Last Admin Dose Admin Pantoprazole Sodium 40 mg DAILY@0600 PO 09/04/24 06:00 09/04/24 07:03 40 MG Diagnostic Test (Pha) 1 strip ACHS 09/03/24 22:00 09/04/24 06:48 1 STRIP Dextrose 50 ml UD PRN IV 09/03/24 20:00 Acetaminophen/ Hydrocodone Bitart 1 tab Q4HP PRN PO 09/03/24 20:00 Ondansetron HCl 4 mg Q4HP PRN IV 09/03/24 20:00 Acetaminophen 650 mg Q6HP PRN PO 09/03/24 20:00 Laboratory Results Laboratory Tests 09/04/24 05:38 Chemistry Test 09/04/24 05:38 Calcium Level 8.9 mg/dL (8.7-10.4) Urinalysis Test 09/03/24 14:00 Urine Color Dark-brown (Yellow) Urine Clarity Ex.turbid (Clear) Urine pH 6.0 (5.0-9.0) Urine Specific [place] 1.026 (1.001-1.035) Urine Protein 1+ (Negative) H Urine Ketones Negative (Negative) Urine Blood Negative /uL (Negative) Urine Nitrite Negative (Negative) Urine Bilirubin Negative (Negative) Urine Urobilinogen Normal mg/dL (Negative) Urine Leukocyte Esterase Negative /uL (Negative) Urine RBC None seen /hpf (0 - 4) Urine Microscopic WBC /HPF (0-5) Urine Squamous Epithelial Cells None seen /hpf (<5) Urine Amorphous Crystals Many /hpf (None Seen) Urine Bacteria None seen /hpf (None Seen) Urine Mucus Few (None Seen) Urine Glucose Trace mg/dL (Normal) Labs and/or images reviewed: Labs reviewed by me, Image(s) reviewed by me Assessment/Plan Assessment/Plan #10 cm superficially spreading ulcerated gastric mass on the greater curvature side extending from the proximal stomach and cardia area up to the midbody of the stomach #2 mm benign-appearing gastric antral nodule #Rule out stomach cancer #sp paracentesis #Malignant ascites #Intractable abdominal pain #Constipation #diffuse wall thickening of the stomach #Hyperbillirubinemia Plan discussed with: Patient GATITO ROBERTS MD Sep 04, 2024 14:41
--- NOTE | 2024-09-04 14:44 | DVHPN2 ---
Reviewed: Care Plan, H&P, Labs, Medications, Previous Orders, Radiology Changes from previous H/P or p: No Changes Objective Vitals Vital Signs Date Time Temp Pulse Resp B/P (MAP) Pulse Ox O2 Delivery O2 Flow Rate FiO2 09/04/24 05:00 98.4 105 16 133/77 (95) 94 98.4 Medications Current Medications Medications Dose Ordered Sig/Blanka Route Start Time Stop Time Status Last Admin Dose Admin Pantoprazole Sodium 40 mg DAILY@0600 PO 09/04/24 06:00 09/04/24 07:03 40 MG Diagnostic Test (Pha) 1 strip ACHS 09/03/24 22:00 09/04/24 06:48 1 STRIP Dextrose 50 ml UD PRN IV 09/03/24 20:00 Acetaminophen/ Hydrocodone Bitart 1 tab Q4HP PRN PO 09/03/24 20:00 Ondansetron HCl 4 mg Q4HP PRN IV 09/03/24 20:00 Acetaminophen 650 mg Q6HP PRN PO 09/03/24 20:00 Laboratory Results Laboratory Tests 09/04/24 05:38 Chemistry Test 09/04/24 05:38 Calcium Level 8.9 mg/dL (8.7-10.4) Urinalysis Test 09/03/24 14:00 Urine Color Dark-brown (Yellow) Urine Clarity Ex.turbid (Clear) Urine pH 6.0 (5.0-9.0) Urine Specific [place] 1.026 (1.001-1.035) Urine Protein 1+ (Negative) H Urine Ketones Negative (Negative) Urine Blood Negative /uL (Negative) Urine Nitrite Negative (Negative) Urine Bilirubin Negative (Negative) Urine Urobilinogen Normal mg/dL (Negative) Urine Leukocyte Esterase Negative /uL (Negative) Urine RBC None seen /hpf (0 - 4) Urine Microscopic WBC /HPF (0-5) Urine Squamous Epithelial Cells None seen /hpf (<5) Urine Amorphous Crystals Many /hpf (None Seen) Urine Bacteria None seen /hpf (None Seen) Urine Mucus Few (None Seen) Urine Glucose Trace mg/dL (Normal) Labs and/or images reviewed: Labs reviewed by me, Image(s) reviewed by me Assessment/Plan Assessment/Plan Acute abdominal pain New diagnosis of stomach cancer has follow up appointment at [facility] on 09/17/24 Severe ascites status post removal of 4 L of fluid by the Radiologist Cirrhosis of liver Diabetes type 2 Hypertension Cachexia Severe malnutrition Plan discussed with: Patient Date of Service: Sep 04, 2024 Billing Provider: GATITO ROBERTS MD Common Visit Codes: [id number] INP/OBS CARE(HIGH) GATITO ROBERTS MD Sep 04, 2024 14:44
[2024-09-04 15:15] VITALS: BP 139/80; PULSE 111; RESP 18; TEMP 97.6
[2024-09-04 18:25] VITALS: BP 129/83; PULSE 84; RESP 16; TEMP 98; O2SAT 95
[2024-09-04] MEDS: HYDROcodone-ACET 5/325MG TAB PO PRN (19:40)
[2024-09-04 20:00] VITALS: PULSE 107; RESP 18; O2SAT 95
[2024-09-04 21:00] VITALS: BP 128/80; PULSE 107; RESP 18; TEMP 98.1; O2SAT 95
[2024-09-05 01:00] VITALS: BP_SYST 109; BP_SYST 125; BP_DIAS 65; BP_DIAS 67; PULSE 65; PULSE 91; RESP 18; TEMP 98; TEMP 98.2; O2SAT 95
[2024-09-05 05:00] VITALS: BP 119/76; PULSE 93; RESP 18; TEMP 97.6; O2SAT 95
[2024-09-05 08:00] VITALS: PULSE 88; RESP 18; O2SAT 95
[2024-09-05 08:32] VITALS: BP 124/67; PULSE 94; RESP 16; TEMP 98.1; O2SAT 98
--- NOTE | 2024-09-05 08:34 | DVHPN2 ---
Reviewed: Care Plan, H&P, Labs, Medications, Previous Orders, Radiology Changes from previous H/P or p: No Changes Objective Vitals Vital Signs Date Time Temp Pulse Resp B/P (MAP) Pulse Ox O2 Delivery O2 Flow Rate FiO2 09/05/24 05:00 97.6 93 18 119/76 (90) 95 97.6 09/04/24 20:00 Room Air* 0 21 Intake/Output Intake and Output 09/05/24 07:00 Intake Total 470 ml Output Total 4300 ml Balance -3830 ml Intake Oral 470 ml Output Other 4300 ml Medications Current Medications Medications Dose Ordered Sig/Blanka Route Start Time Stop Time Status Last Admin Dose Admin Pantoprazole Sodium 40 mg DAILY@0600 PO 09/04/24 06:00 09/05/24 06:21 40 MG Diagnostic Test (Pha) 1 strip ACHS 09/03/24 22:00 09/05/24 06:21 1 STRIP Dextrose 50 ml UD PRN IV 09/03/24 20:00 Acetaminophen/ Hydrocodone Bitart 1 tab Q4HP PRN PO 09/03/24 20:00 09/04/24 19:40 1 TAB Ondansetron HCl 4 mg Q4HP PRN IV 09/03/24 20:00 Acetaminophen 650 mg Q6HP PRN PO 09/03/24 20:00 Laboratory Results Laboratory Tests 09/04/24 05:38 Urinalysis Test 09/03/24 14:00 Urine Color Dark-brown (Yellow) Urine Clarity Ex.turbid (Clear) Urine pH 6.0 (5.0-9.0) Urine Specific [place] 1.026 (1.001-1.035) Urine Protein 1+ (Negative) H Urine Ketones Negative (Negative) Urine Blood Negative /uL (Negative) Urine Nitrite Negative (Negative) Urine Bilirubin Negative (Negative) Urine Urobilinogen Normal mg/dL (Negative) Urine Leukocyte Esterase Negative /uL (Negative) Urine RBC None seen /hpf (0 - 4) Urine Microscopic WBC /HPF (0-5) Urine Squamous Epithelial Cells None seen /hpf (<5) Urine Amorphous Crystals Many /hpf (None Seen) Urine Bacteria None seen /hpf (None Seen) Urine Mucus Few (None Seen) Urine Glucose Trace mg/dL (Normal) Labs and/or images reviewed: Labs reviewed by me, Image(s) reviewed by me Assessment/Plan Assessment/Plan Acute abdominal pain New diagnosis of stomach cancer has follow up appointment at [facility] on 09/08/24 Severe ascites status post removal of 4 L of fluid by the Radiologist Cirrhosis of liver Diabetes type 2 Hypertension Cachexia Severe malnutrition Patient feels better and wants to go home Examined with the help of galvanizing pot runner MARCIE Oreilly at bedside Plan discussed with: Patient Date of Service: Sep 05, 2024 Billing Provider: GATITO ROBERTS MD Common Visit Codes: [id number] INP/OBS CARE(HIGH) GATITO ROBERTS MD Sep 05, 2024 08:34
[2024-09-05] MEDS ORDERED: TRAM-626 PO (08:36)
--- NOTE | 2024-09-05 08:39 | DVHDS2 ---
Discharge Summary Date of Admission Sep 03, 2024 at 19:17 Date of Discharge: Sep 05, 2024 Admitting Diagnosis Abdominal pain Wounds: Paracentesis Labs/Diagnostic Data: Laboratory Results Test 09/05/24 05:48 09/04/24 09:10 09/04/24 05:38 09/03/24 14:28 POC Glucose 121 mg/dl (70-106) Body Fluid Source Peritoneal fluid Body Fluid pH 8.0 Body Fluid WBC (Manual) 756 CUMM (0-200) Body Fluid RBC (Manual) 6670 CUMM (0-2000) Body Fluid Mononuclear Cells 95 % Body Fluid Polymorphonuclear Cells 5 % (0-25) White Blood Count 7.6 10^3/uL (4.4-10.8) Red Blood Count 4.87 10^6/uL (4.0-5.20) Hemoglobin 14.0 g/dL (12.2-16.2) Hematocrit 40.0 % (36.0-46.0) Mean Corpuscular Volume 82.0 fL (80.0-100.0) Mean Corpuscular Hemoglobin 28.6 pg (28.0-32.0) Mean Corpuscular Hemoglobin Concent 34.9 g/dL (32.0-36.0) Red Cell Distribution Width 14.6 % (11.8-14.3) Platelet Count 355 10^3/uL (140-450) Mean Platelet Volume 8.9 fL (6.9-10.8) Neutrophils (%) (Auto) 51.7 % (37.0-80.0) Lymphocytes (%) (Auto) 28.2 % (10.0-50.0) Monocytes (%) (Auto) 9.2 % (0.0-12.0) Eosinophils (%) (Auto) 9.7 % (0.0-7.0) Basophils (%) (Auto) 1.2 % (0.0-2.0) Neutrophils # (Auto) 3.9 10 ^3/uL (1.6-8.6) Lymphocytes # (Auto) 2.2 10 ^3/uL (0.4-5.4) Monocytes # (Auto) 0.7 10 ^3/uL (0-1.3) Eosinophils # (Auto) 0.7 10 ^3/uL (0-0.8) Basophils # (Auto) 0.1 10 ^3/uL (0-0.2) Nucleated Red Blood Cells 0.2 % Sodium Level 140 mmol/L (136-145) Potassium Level 3.6 mmol/L (3.5-5.1) Chloride Level 105 mmol/L (98-107) Carbon Dioxide Level 24 mmol/L (20-31) Anion Gap 11 (5-15) Blood Urea Nitrogen 7 mg/dL (9-23) Creatinine 0.39 mg/dL (0.550-1.02) Glomerular Filtration Rate Calc 115 mL/min (>90) BUN/Creatinine Ratio 17.9 (10.0-20.0) Serum Glucose 105 mg/dL (74-106) Calcium Level 8.9 mg/dL (8.7-10.4) Prothrombin Time 12.6 sec (9.3-11.8) Prothrombin Time INR 1.21 (0.9-1.15) Activated Partial Thromboplast Time 27.2 SEC (24.5-34.5) Total Bilirubin 0.6 mg/dL (0.2-1.0) Aspartate Amino Transferase (AST) 35 U/L (13-40) Alanine Aminotransferase (ALT) 12 U/L (7-40) Alkaline Phosphatase 97 U/L (46-116) Total Protein 7.1 g/dL (5.7-8.2) Albumin 3.6 g/dL (3.2-4.8) Test 09/03/24 14:00 Urine Color Dark-brown (Yellow) Urine Clarity Ex.turbid (Clear) Urine pH 6.0 (5.0-9.0) Urine Specific [place] 1.026 (1.001-1.035) Urine Protein 1+ (Negative) Urine Ketones Negative (Negative) Urine Blood Negative /uL (Negative) Urine Nitrite Negative (Negative) Urine Bilirubin Negative (Negative) Urine Urobilinogen Normal mg/dL (Negative) Urine Leukocyte Esterase Negative /uL (Negative) Urine RBC None seen /hpf (0 - 4) Urine Microscopic WBC /HPF (0-5) Urine Squamous Epithelial Cells None seen /hpf (<5) Urine Amorphous Crystals Many /hpf (None Seen) Urine Bacteria None seen /hpf (None Seen) Urine Mucus Few (None Seen) Urine Glucose Trace mg/dL (Normal) Other Laboratory Tests 09/04/24 05:38 Brief Hx & Hospital Course: 58-year-old female with a history of cirrhosis ascites newly diagnosed stomach cancer has appointment with [facility] on 09/08/2024 came in for abdominal pain and distention radiologist removed 4 L of fluid by paracentesis and patient had significant relief patient feels better with a stable vital signs being discharged home to keep her appointment with the [facility] Consults/Reason for consult Radiologist Operations or Procedures Paracentesis Condition at Discharge: Poor Final Diagnosis/Problems List Acute abdominal pain New diagnosis of stomach cancer has follow up appointment at [facility] on 09/08/24 Severe ascites status post removal of 4 L of fluid by the Radiologist Cirrhosis of liver Diabetes type 2 Hypertension Cachexia Severe malnutrition Discharge Disposition: Home Discharge Instruct/Medications Diet: Regular Activity: Light activity Follow Up/Referral: Keep Your appointment with [facility] on 09/08/2024 for stomach cancer treatment Go to nearest ER if symptoms worsen Medications: Tramadol Transmitted to pharmacy Scheduled Metformin Hydrochloride (Metformin Hcl Er), 1 TAB PO BID Pantoprazole Sodium Sesquihydr (Protonix), 40 MG PO DAILY Sucralfate (Sucralfate), 1 GM PO BID Scheduled PRN Tramadol HCl (Tramadol HCl), 50 MG PO QID PRN 35 (Time taken for discharge summary 35 minutes) Discharge Statement: "Patient was advised to return to the ER or call 911 if any headaches, dizziness, shortness of breath, chest pain, abdominal pain, bleeding, fevers, or worsening of medical condition. Patient was counseled about treatment plan, medications, possible side effects, patientverbalized understanding. All questions were answered to the best of my ability. This discharge took greater then 30 minutes in planning, reviewing documentation, counseling the patient, and discussing with other team members." ASSESSMENT ASSESSMENT Hospital Course Improved Assessment Acute abdominal pain New diagnosis of stomach cancer has follow up appointment at [facility] on 09/08/24 Severe ascites status post removal of 4 L of fluid by the Radiologist Cirrhosis of liver Diabetes type 2 Hypertension Cachexia Severe malnutrition Date of Service: Sep 05, 2024 Billing Provider: GATITO ROBERTS MD Common Visit Codes: [id number] DISCH DAY >30min GATITO ROBERTS MD Sep 05, 2024 08:39
[2024-09-05 12:07] LABS: Glucose, Body Fluid 100.0 mg/dL (.); LD, Body Fluid 231.0 IU/L (.)
== END 2024-09-05 11:55 | disposition home or self-care (01) ==
LOC: ER 13:35 → OVERFLOW 19:17 → CENTRAL 09-04 18:28
PROVIDERS: ADMIT Family Medicine; ATTEND Family Medicine
PROC: 0W9G3ZZ Drainage of Peritoneal Cavity, Percutaneous Approach (ICD-10-PCS; principal; 2024-09-04)
DX: K74.60 Unspecified cirrhosis of liver (principal); R18.0 Malignant ascites; C16.9 Malignant neoplasm of stomach, unspecified; E43 Unspecified severe protein-calorie malnutrition; I10 Essential (primary) hypertension; E11.9 Type 2 diabetes mellitus without complications; K59.00 Constipation, unspecified; K80.20 Calculus of gallbladder without cholecystitis without obstruction; Z90.710 Acquired absence of both cervix and uterus; Z68.28 Body mass index [BMI] 28.0-28.9, adult; Z85.028 Personal history of other malignant neoplasm of stomach; Z90.49 Acquired absence of other specified parts of digestive tract
CPT/HCPCS: 36415; 49083; 76705; 76942; 80048; 80053; 81001; 82140; 82962; 83986; 85025; 85610; 85730; 87205; 89051; G0378